=== PATIENT | male | born 1980 | race Caucasian/White ===

== ENCOUNTER 2025-03-18 13:14 | Emergency (ER) | payer MEDICAID ==
[~2025-03-18] VITALS: Ht 190.5 cm; Wt 180.0 kg
[~2025-03-18 13:14] MED LIST: ACET-75 PO; ASPI-1265 PO; ATOR40TA72 PO; CARV12.545 PO; CARV3.123 PO; CELE-127 PO; CYCL-1 PO; EMPA10TA PO; FERR-106 PO; FOLI1TAB27 PO; FURO40TA4 PO; IBUP-1986 PO; LOSA25TA41 PO; LOSA50TA64 PO; MULT-25 PO; NOR5T PO; NYSPWD TP; PRED10TA PO; SILD20TA42 PO; SPIR25TA5 PO; SPIR50TA5 PO; thiamine tablet PO
[2025-03-18 13:25] VITALS: TEMP 98.2
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
--- NOTE | 2025-03-18 13:59 | RADIOLOGY REPORT ---
EXAM: DI CHEST,SINGLE VIEW Indication: sob Technique: Single frontal view of the chest was obtained Comparison: CT CTA CHEST PE W/ IV CONTRAST on DOS: 12/06/24, DI CHEST,SINGLE VIEW on DOS: 12/04/24 FINDINGS: Lines and Tubes: None Lungs: Pulmonary vascular congestion. Pleura: No effusion. No pneumothorax. Cardiomediastinal contours: Cardiomegaly. Bones: No acute osseous abnormality. IMPRESSION: Cardiomegaly with pulmonary vascular congestion.
[2025-03-18 14:30] LABS: MEAN PLATELET VOLUME 8.6 FL (7.4-10.4); RED CELL DISTRIBUTION WIDTH 19.0 % (11.5-14.5)
[2025-03-18 14:39] LABS: CREATININE 0.94 MG/DL (0.60-1.10); TOTAL CARBON DIOXIDE 27.5 MMOL/L (24-32); eCRCL 119 ML/MIN; eGFR 87 ML/MIN
[2025-03-18 14:48] LABS: PLATELET ESTIMATE NORMAL
[2025-03-18] MEDS ORDERED: FURO40TA4 PO (15:19)
[2025-03-18] MEDS ORDERED: SPIR25TA5 PO (15:19)
[2025-03-18] MEDS ORDERED: ATOR40TA72 PO (15:19)
[2025-03-18] MEDS ORDERED: CEPH-585 PO (15:19)
[2025-03-18] MEDS ORDERED: CARV3.123 PO (15:19)
[2025-03-18] MEDS ORDERED: ASPI-1265 PO (15:19)
[2025-03-18] MEDS ORDERED: LOSA50TA64 PO (15:19)
[2025-03-18 16:04] VITALS: BP 192/124; PULSE 91; RESP 16; O2SAT 97
== END 2025-03-18 16:16 | disposition home or self-care (01) ==
LOC: ER 13:14
DX: S90.822A Blister (nonthermal), left foot, initial encounter (principal); T25.122A Burn of first degree of left foot, initial encounter; Z88.8 Allergy status to other drugs, medicaments and biological substances; X58.XXXA Exposure to other specified factors, initial encounter; Y93.89 Activity, other specified; Y92.89 Other specified places as the place of occurrence of the external cause; Y99.8 Other external cause status
CPT/HCPCS: 36415; 71045; 80048; 83605; 84145; 85008; 85025; 87040; 99284; A6446

== ENCOUNTER 2025-05-06 19:14 | Inpatient (IN) | payer MEDICAID ==
[~2025-05-06] VITALS: Ht 190.5 cm; Wt 130.5 kg
--- NOTE | 2025-05-06 19:28 | ELECTROCARDIOGRAPH REPORT ---
[facility] Test Date: 2025-05-06 Test Time: 19:25:09 Pat Name: GRACIELA KRAFT Department: EMERGENCY ROOM Room: [facility] Gender: M Research Instructor: MIGEL : 1980 Requested By: SAMMI SCHRADER Order Number: [id number] Reading MD: Dr. IGNACIA Hallman Measurements Intervals Lewis Rate: 116 P: 62 NE: 153 QRS: -139 QRSD: 132 T: 56 QT: 326 QTc: 453 Interpretive Statements Sinus tachycardia Right atrial enlargement Right bundle branch block Electronically Signed On 05-07-2025 16:53:[address] IGNACIA Hallman Please click the below link to view image of tracing.
[2025-05-06 20:09] LABS: MEAN PLATELET VOLUME 8.5 FL (7.4-10.4); RED CELL DISTRIBUTION WIDTH 17.1 % (11.5-14.5)
[2025-05-06 20:11] LABS: LEUKOCYTE ESTERASE ,URINE NEGATIVE (Neg); NITRITES, URINE NEGATIVE (Neg); OCCULT BLOOD,URINE NEGATIVE (Neg)
--- NOTE | 2025-05-06 20:16 | RADIOLOGY REPORT ---
EXAM: DI CHEST,SINGLE VIEW TECHNIQUE: Single frontal chest radiograph CLINICAL HISTORY: SEPSIS COMPARISON: DI CHEST,SINGLE VIEW on DOS: 03/18/25, DI CHEST,SINGLE VIEW on DOS: 12/04/24 FINDINGS/IMPRESSION: The lungs are clear. Unchanged enlarged cardiomediastinal silhouette. No definite pleural effusion or pneumothorax, though the left costophrenic angle is partially excluded from field of view. Unchanged osseous structures.
[2025-05-06] MEDS ORDERED: vancomycin inj 1,000 MG in normal saline 250ml IV soln 250 ML IV STA (20:18)
[2025-05-06] MEDS: normal saline 1000ML IV soln IVB ONE ×2 (20:20→20:55)
[2025-05-06 20:22] LABS: CREATININE 1.98 MG/DL (0.60-1.10); TOTAL CARBON DIOXIDE 26.5 MMOL/L (24-32); eCRCL 56 ML/MIN; eGFR 37 ML/MIN
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
[2025-05-06 20:29] LABS: UA COLLECTION TYPE URINAL
[2025-05-06 20:31] LABS: AMORPHOUS PHOSPHATES 1+; MUCUS STRANDS NONE SEEN /LPF (Neg); SQUAMOUS EPITHELIAL CELL,UR NONE SEEN /LPF (FEW)
[2025-05-06 20:46] LABS: EOSINOPHILS % (MANUAL) 1.0 % (0-6); LYMPHOCYTES % (MANUAL) 4.0 % (21-51); MONOCYTES % (MANUAL) 3.0 % (2-12); NEUTROPHILS % (MANUAL) 92.0 % (42-75); PLATELET ESTIMATE NORMAL
[2025-05-06] MEDS: vancomycin/NS 1 GM ADD-VANTAGE 250 ML IV STA (21:06)
[2025-05-06] MEDS ORDERED: potassium Cl 20 mEq SR tablet PO PRN ×2 (21:10)
[2025-05-06] MEDS ORDERED: magnesium sulf-water 4G/100mL 100 ML IV PRN (21:10)
[2025-05-06] MEDS ORDERED: HYDROcodone/acetaminophen 5mg/325mg tablet PO PRN (21:10)
[2025-05-06] MEDS ORDERED: ipratropium/albuterol 3ml nebule NEB PRN (21:10)
[2025-05-06] MEDS ORDERED: magnesium hydroxide 30ml (MOM) UD suspension PO PRN (21:10)
[2025-05-06] MEDS ORDERED: magnesium Cl slow-release 64mg tablet PO PRN (21:10)
[2025-05-06] MEDS ORDERED: magnesium sulf-water 2g/50mL 50 ML IV PRN (21:10)
[2025-05-06] MEDS ORDERED: potassium Cl 40MEQ/1/2NS 520ml 520 ML IV PRN (21:10)
[2025-05-06] MEDS ORDERED: albuterol 2.5 MG/3 ML nebule NEB PRN (21:10)
[2025-05-06] MEDS ORDERED: normal saline 1000ml 1,000 ML IV SCH (21:10)
[2025-05-06] MEDS ORDERED: iohexol 300mg/ml 100ml inj. ONE (21:19)
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
[2025-05-06 21:57] LABS: CHOL/HDL RATIO 2.2 (0.00-4.99); LDL CHOLESTEROL 68 MG/DL (50-100); PRO BRAIN NATRIURETIC PEPTIDE 29633 PG/ML (0-125)
[2025-05-06] MEDS: piperacillin/tazo 4.5gm/100ml 100 ML IV SCH (22:05)
[2025-05-06 22:06] LABS: ABG BASE EXCESS -3.5 mmol/L (-2.0-3.0); ABG HCO3 21.3 mmol/L (21.0-28.0); ABG OXYGEN SATURATION 91.4 % (94.0-98.0); ABG PCO2 (T) 42.5 mmHg (35.0-48.0); ABG PH (T) 7.330 (7.350-7.450); ABG PO2 (T) 75.6 mmHg (83.0-108.0); ALLEN'S TEST POSITIVE; FCOHb 1.1 % (0.5-1.5); FHHb 8.5 % (0.0-5.0); FIO2 44.0 mmHg/%; FLOW 6 L/min; FMetHb 0.2 % (0.0-1.5); FO2Hb 90.2 % (94.0-98.0); MODE NASAL CANNULA; PATIENT TEMPERATURE 39.6; TOTAL HEMOGLOBIN 15.8 G/dl (13.5-17.5)
[2025-05-06 22:14] LABS: APTT 30 SECONDS (22-32); INR 1.2 INR
[2025-05-06] MEDS: HYDROcodone/acetaminophen 10/325mg tab PO PRN (22:28)
[2025-05-06] MEDS: HEPARIN DRIP DVT/PE -**PHARMACIST TO DOSE IV ONE (22:40)
[2025-05-06 22:46] VITALS: PULSE 119; RESP 25; O2SAT 88
[2025-05-06] MEDS ORDERED: heparin 10,000 units/1 ML INJ IV PRN (22:50)
[2025-05-06] MEDS: heparin 10,000 units/1 ML INJ IV ONE (23:26)
[2025-05-06 23:29] LABS: MEAN PLATELET VOLUME 8.1 FL (7.4-10.4); RED CELL DISTRIBUTION WIDTH 17.6 % (11.5-14.5)
[2025-05-06 23:36] VITALS: PULSE 120; RESP 25; O2SAT 93
[2025-05-07] VITALS (28 sets, daily range): BP systolic 100–156; BP diastolic 54–100; PULSE 97–115; RESP 15–30; O2SAT 81–98
[2025-05-07] MEDS: heparin 25,000 UNIT/250ml bag 250 ML IV PRN (00:07)
[2025-05-07] MEDS: MESSAGE TO NURSING IV ONE (00:09)
[2025-05-07] MEDS: normal saline 1000ml 1,000 ML IV SCH (00:12)
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
[2025-05-07 00:22] LABS: INR 1.3 INR
--- NOTE | 2025-05-07 00:31 | RADIOLOGY REPORT ---
EXAM: CT CTA CHEST PE W/ IV CONTRAST History: Shortness of breath Comparison Study: DI CHEST,SINGLE VIEW on DOS: 05/06/25, DI CHEST,SINGLE VIEW on DOS: 03/18/25, CT CTA CHEST PE W/ IV CONTRAST on DOS: 12/06/24, DI CHEST,SINGLE VIEW on DOS: 12/04/24 TECHNIQUE: A digital sub plant manager image was obtained. During the uneventful, intravenous administration of contrast material, multislice data acquisition was obtained through the chest. 3-D postprocessing is performed by technologist including MIP imaging Radiation Dose : CTDI vol 24.9 mGy, DLP 1015.1 mGy*cm. Findings: Evaluation is degraded by respiratory motion. Lungs: There are mild dense and linear opacities with most pronounced within the lower lobes. Pleura: Unremarkable Heart/Great vessels: There is borderline cardiomegaly. There is no CT evidence of acute pulmonary embolism. Evaluation for subsegmental pulmonary emboli is limited. Mediastinum: Unremarkable. Soft tissues/Bones: Unremarkable Upper abdomen: Unremarkable. Impression: 1. No CT evidence of acute pulmonary embolism. Evaluation for subsegmental pulmonary emboli is limited. 2. Lower lobe opacities may reflect atelectasis, though infectious / inflammatory process cannot be entirely excluded in the appropriate clinical setting.
--- NOTE | 2025-05-07 00:35 | RADIOLOGY REPORT ---
Exam: CT CT LOWER EXTREMITY W/ IV CONTRAST History: infection Comparison Study: None TECHNIQUE: A digital sales review clerk image was obtained. During the uneventful, intravenous administration of contrast material, multislice data acquisition was obtained through the left lower extremity. The data set was subsequently reconstructed into multiplanar reformats. RADIATION DOSE: CTDI vol 7.6 mGy. DLP 322.3 mGy.cm Findings: There is no acute fracture. No dislocation. There is diffuse subcutaneous swelling and stranding. No drainable fluid collection is seen. There is no soft tissue gas. There is no osseous erosion. Visualized portions of the right lower extremity demonstrate subcutaneous stranding, incompletely assessed. Impression: 1. Diffuse subcutaneous stranding and swelling, most likely referable to an infectious/inflammatory process in the appropriate clinical setting.
[2025-05-07] MEDS: mag hydrox/Alum hydrox/simeth 30ml oral suspension PO PRN (01:30)
[2025-05-07] MEDS: HYDROmorphone/PF 0.2 MG/ML SYRINGE IV PRN (01:31)
[2025-05-07 07:53] LABS: MEAN PLATELET VOLUME 8.6 FL (7.4-10.4); RED CELL DISTRIBUTION WIDTH 17.8 % (11.5-14.5)
[2025-05-07] MEDS ORDERED: heparin, porcine 5000 units/ml vial SQ SCH (08:00)
[2025-05-07] MEDS: docusate sod 100mg capsule PO SCH (08:00)
[2025-05-07] MEDS: K and/or MAG REPLACEMENT MC SCH (08:00)
[2025-05-07 08:17] LABS: BANDS% (MANUAL) 5.0 % (0-10); LYMPHOCYTES % (MANUAL) 1.0 % (21-51); METAMYLEOCYTES% (MANUAL) 1.0 % (0-0); MONOCYTES % (MANUAL) 4.0 % (2-12); NEUTROPHILS % (MANUAL) 89.0 % (42-75); PLATELET ESTIMATE NORMAL
[2025-05-07 08:30] LABS: CHOL/HDL RATIO 1.6 (0.00-4.99); CREATININE 2.20 MG/DL (0.60-1.10); LDL CHOLESTEROL 31 MG/DL (50-100); TOTAL CARBON DIOXIDE 28.1 MMOL/L (24-32); eCRCL 51 ML/MIN; eGFR 33 ML/MIN
--- NOTE | 2025-05-07 10:05 | RADIOLOGY REPORT ---
CLINICAL HISTORY: KEIRA TECHNIQUE: Complete ultrasound exam of the kidneys and bladder was performed. COMPARISON: None FINDINGS: The right kidney has normal echogenicity and measures 11.1 cm. There is no focal parenchymal abnormality or evidence for stone. There is no hydronephrosis. The left kidney has normal echogenicity and measures 11.8 cm. There is no focal parenchymal abnormality or evidence for stone. There is no hydronephrosis. The bladder is not seen, likely decompressed. IMPRESSION: NO SIGNIFICANT SONOGRAPHIC ABNORMALITY OF THE KIDNEYS.
--- NOTE | 2025-05-07 10:26 | VASCULAR REPORT ---
[facility] Vascular Department [facility] [address] [place] [address] [email or web address] LAC HECTOR CAM Name : GRACIELA KRAFT Date : 05/07/2025 Accession# : [id number] Birthdate : 1980 Sex : M Layer Off : Kiki Tang RDMS/RVT Age : [address]Y [address] : BRANDON ESPARZA, Preliminary Report The above named patient was referred for a NON-INVASIVE LOWER EXTREMITY VENOUS EXAMINATION. The evaluation includes grayscale imaging, color flow Doppler and spectral analysis of the major deep and superficial lower extremity veins. Left Lower Extremity Venous Study for DVT Patient IN-PATIENT InaRSition's Left leg swelling Vein Imaging (Right) CFV (R): Compressible, Spontaneous, Respirophasic, Augmentation Reflux: ms Vein Imaging (Left) CFV (L): Compressible, Spontaneous, Respirophasic, Augmentation Reflux: ms SFJ (L): Compressible, Spontaneous, Respirophasic, Augmentation Reflux: ms FEM (L): Compressible, Spontaneous, Respirophasic, Augmentation Reflux: ms POP (L): Compressible, Spontaneous, Respirophasic, Augmentation Reflux: ms DFV (L): Compressible, Spontaneous, Respirophasic, Augmentation Reflux: ms PTV (L): Compressible, Spontaneous, Respirophasic, Augmentation Reflux: ms GSV (L): Compressible, Spontaneous, Respirophasic, Augmentation Reflux: ms Peroneals (L): Compressible, Spontaneous, Respirophasic, Augmentation Reflux: ms Impression: No sonographic evidence of deep vein thrombosis to left lower extremity. Normal compressible veins with respirophasic flow and good augmentation throughout left leg. Contralateral Common Femoral Vein shows respirophasic flow and good augmentation. Left groin lymph nodes visualized, largest measures 4.7cm x 1.5cm in transverse.
--- NOTE | 2025-05-07 10:37 | VASCULAR REPORT ---
BILATERAL Lower Extremity Arterial Duplex Date: 05/07/2025 07:52 AM Clinical History: left wound Comparison: None Inanations Left foot wound, leg pain VELOCITY AND DOPPLER WAVEFORM ANALYSIS RIGHT cm/se Waveform Severity LEFT cm/se Waveform Severity C c dCFA 84.6 Multiphasic dCFA 97.1 Multiphasic Prof Fem 40.8 Multiphasic Prof Fem 55.5 Multiphasic Art. Art Fem Art 70.4 Multiphasic Fem Art 89.9 Multiphasic Prox. Prox. Fem Art 57.9 Multiphasic Fem Art 64.9 Multiphasic Mid Mid. Fem Art 70.0 Multiphasic Fem Art 62. Multiphasic Dist Dist. Pop Art(AK) 40.7 Multiphasic Pop Art(AK) 63.4 Multiphasic Pop Art(BK) 38.7 Multiphasic Pop Art(BK) 50.3 Multiphasic SHOTGUN SHELL ASSEMBLY MACHINE OPERATOR Dist. 44.1 Multiphasic SHOTGUN SHELL ASSEMBLY MACHINE OPERATOR Dist. 77.3 Multiphasic DPA 34.3 Multiphasic DPA 39.3 Multiphasic CONCLUSION Imaging reveals patent arteries bilaterally. No evidence of significant stenosis and/or occlusion bilaterally. Multiphasic flow at all levels bilaterally.
--- NOTE | 2025-05-07 11:12 | ELECTROCARDIOGRAPH REPORT ---
[facility] Date: 2025-05-07 Test Time: 11:10:15 Pat Name: GRACIELA KRAFT Department: [facility] 2S Patient ID: [facility]-[id number] Room: 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 IGNACIA Hallman Measurements Intervals [place] Rate: 103 P: 57 DE: 164 QRS: 67 QRSD: 140 T: 28 QT: 356 QTc: 466 Interpretive Statements Sinus tachycardia Right bundle branch block Electronically Signed On 05-07-2025 16:50:[address] IGNACIA Hallman Please click the below link to view image of tracing.
--- NOTE | 2025-05-07 14:03 | PROGRESS NOTE ---
Progress Note Ortho Ortho Post Op Day #: Other Follow Up ROS ROS No new complaints Exam Exam: Alert and Oreinted x4 Exam Comments There was no change in the appearance of the foot. He has warmth of the leg below the knee and firm swelling from the knee down Problem/Assessment/Plan Problems/Diagnosis: (1) Wound cellulitis Additional Plan Continue observation and antibiotics Results/Orders Result Diagram: 05/07/25 0725 05/07/25 0725 CHRISTOPHER WILKINS Jr., MD May 07, 2025 14:03
[2025-05-07] MEDS: pantoprazole 40mg Tablet.DR PO ONE (14:05)
[2025-05-07] MEDS: HYDROmorphone inj. 0.5 MG/0.5 ML DISP.SYRIN IV PRN (14:06)
--- NOTE | 2025-05-07 17:06 | CARDIOLOGY REPORT ---
APPROVED REPORT EXAM: Comprehensive 2D, Doppler, and color-flow Echocardiogram. 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 3.04 cm IVC 22.07 mm FS (%) 28.0 % SV 54.4 ml CO 5.6 L/min M-Mode Dimensions Left Atrium(MM) 4.11 (2.5-4.0cm) Aortic Root 3.39 (2.2-3.7cm) Aortic Cusp Exc 1.95 (1.5-2.0cm) MV EPSS 0.3 (<0.5cm) Aortic Valve AoV Peak [place]. 185.8 cm/s AoV VTI 25.3 cm AO Peak GR. 13.8 mmHg AO Mean GR. 9 mmHg LVOT VTI 16.85 cm LVOT Peak [place]. 109.6 cm/s OLIVA(VTI)/BSA 2.39 cm2/m2 OLIVA (VTI) 2.39 cm2 AV DI 0.66 % Mitral Valve MV E Velocity 102.0 cm/s MV Peak Gr. 3 mmHg MV DECEL TIME 172 ms MV A Velocity 95.0 cm/s MV PHT 80 ms E/A Ratio 1.1 MVA (PHT) 2.75 cm2 MV VMax 86.2 cm/s TDI Lateral E' P. V 7.41 cm/s E/Lateral E' 13.8 Tricuspid Valve TR P. Velocity 253 cm/s RAP ESTIMATE 10 mmHg TR Peak Gr. 26 mmHg RVSP 36 mmHg LEFT VENTRICLE Normal LV size and function. Mild concentric hypertrophy. Overall LVEF is 55%. RIGHT VENTRICLE Right ventricle is severely dilated with mildly decreased contractility. ATRIA Left atrium is mildly dilated. AORTIC VALVE Trileaflet AV appears mildly sclerotic without stenosis. No insufficiency by color and spectral flow Doppler. MITRAL VALVE Mitral valve leaflets are mildly thickened with mild annular calcification. No stenosis. Trace regurgitation. TRICUSPID VALVE Tricuspid valve is grossly normal in structure. PULMONIC VALVE Pulmonic valve is grossly normal in structure with physiologic insufficiency. GREAT VESSELS Aortic root is mildly dilated (3.8 cm). The ascending aorta is normal in size. IVC is dilated and collapses less than 50% with inspiration. PERICARDIUM Normal pericardium. No effusion. Other Information Study Quality: Fair due to body habitus Conclusion Overall LVEF is 55%. Right ventricle is severely dilated with mildly decreased contractility. Trileaflet AV appears mildly sclerotic without stenosis. No insufficiency by color and spectral flow Doppler. Mitral valve leaflets are mildly thickened with mild annular calcification. No stenosis. Trace regurgitation. Tricuspid valve is grossly normal in structure. Normal pericardium. No effusion.
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
[2025-05-07] MEDS: Ensure Enlive - 237ML PO SCH (17:55)
[2025-05-07] MEDS: piperacillin/tazo 4.5gm/100ml 100 ML IV SCH (17:58)
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
[2025-05-07] MEDS: ALPRAZolam 0.25mg tablet PO PRN (19:57)
[2025-05-08] VITALS (32 sets, daily range): BP systolic 98–155; BP diastolic 32–114; PULSE 52–123; RESP 11–39; O2SAT 86–98
[2025-05-08] MEDS: furosemide 10 MG/1 ML 10ml inj IV ONE (00:29)
[2025-05-08] MEDS: dexmedetomidin/NS 400mcg/100ml 100 ML IV PRN (00:29)
--- NOTE | 2025-05-08 01:36 | PROGRESS NOTE ---
Progress Note Dictate Providers to CC ~ Antibiotic Ordered?: Yes Objective Vitals Vital Signs Date Time Temp Pulse Resp B/P (MAP) Pulse Ox O2 Delivery O2 Flow Rate FiO2 05/08/25 01:00 98.2 115 29 124/71 (88) 94 High Flow Nasal Cannula 30.0 100 Lab Results: 05/07/25 0725 05/07/25 0725 Coagulation Studies Laboratory Tests Test 05/06/25 19:39 05/06/25 23:16 05/07/25 07:25 Activated Partial Thromboplast Time 30 SECONDS (22-32) Prothrombin Time 12.4 SECONDS (9.0-12.0) H INR International Normalized Ratio 1.3 INR D-Dimer 1.32 MG/L FEU (0-0.50) H D-Dimer Comment APTT (Heparin Protocol) 50 SECONDS (45-75) Coagulation Comments Problem\Assessment\Plan Additional Plan Patient seen and evaluated using HIPPA compliant AV device Rounded with the RN and credit charge authorizer with the the RT Admitted for severe sepsis with foot infection/abscess Hx of ALFREDA, preserved EF heart failure Now in respiratory distress not tolerating BIPAP CTA no PE On HFNC despnic Morbidly obese Switch back to BIPAP, Low dose precedex to help tolerate BIPAP 1 time lasix re-asses in am for additional dose Bronchodialtor BS Abx Continue rest of care If get worse will need mech ventilation CCT 60mins MD BEN Wilson,DAISY Lacy MD May 08, 2025 01:36
[2025-05-08 04:40] LABS: MEAN PLATELET VOLUME 8.5 FL (7.4-10.4); RED CELL DISTRIBUTION WIDTH 17.9 % (11.5-14.5)
[2025-05-08 05:07] LABS: BANDS% (MANUAL) 2.0 % (0-10); LARGE PLATELETS FEW; LYMPHOCYTES % (MANUAL) 3.0 % (21-51); MONOCYTES % (MANUAL) 2.0 % (2-12); NEUTROPHILS % (MANUAL) 93.0 % (42-75); PLATELET ESTIMATE NORMAL
--- NOTE | 2025-05-08 06:21 | PROGRESS NOTE ---
Progress Note Dictate Providers to CC ~ Progress Note: Still on HFNC O2. Refuses BiPAP Central Line/PICC still needed: N\A Andersen Indications Met/Not Met: F/C Indications Not Met Antibiotic Ordered?: Yes Subjective Subjective Mild distress Objective Vitals Vital Signs Date Time Temp Pulse Resp B/P (MAP) Pulse Ox O2 Delivery O2 Flow Rate FiO2 05/08/25 06:00 98.4 94 39 98/32 (54) 88 High Flow Nasal Cannula 30.0 100 Lab Results: 05/08/25 0347 05/07/25 0725 Objective Heart: S1-2 reg Lungs: Coarse BS at bases Abd: Soft, BS (+) Ext: edema (+) Neuro: awake Coagulation Studies Laboratory Tests Test 05/06/25 19:39 05/06/25 23:16 05/07/25 07:25 Activated Partial Thromboplast Time 30 SECONDS (22-32) Prothrombin Time 12.4 SECONDS (9.0-12.0) H INR International Normalized Ratio 1.3 INR D-Dimer 1.32 MG/L FEU (0-0.50) H D-Dimer Comment APTT (Heparin Protocol) 50 SECONDS (45-75) Coagulation Comments Problem\Assessment\Plan Additional Plan 1-Severe Sepsis due to LE Cellulitis -Continue abx 2-Acute Hypoxemic Resp Failure -Titrate O2 for SpO2>92% -BiPAP qhs/prn 3-Severe Dilated RV -Suspect PAH due to untreated ALFREDA/OHS -Add Lasix 4-Agitation -Add [place] Vásquez CC time 35min Sepsis Screening Reassessment Date: May 08, 2025 TEDDY VÁSQUEZ MD May 08, 2025 06:21
[2025-05-08 08:32] LABS: CREATININE 2.31 MG/DL (0.60-1.10); PHOSPHORUS 5.0 MG/DL (2.3-4.5); TOTAL CARBON DIOXIDE 28.9 MMOL/L (24-32); eCRCL 48 ML/MIN; eGFR 31 ML/MIN
[2025-05-08 09:46] LABS: ABG BASE EXCESS -1.7 mmol/L (-2.0-3.0); ABG HCO3 23.8 mmol/L (21.0-28.0); ABG OXYGEN SATURATION 98.6 % (94.0-98.0); ABG PCO2 (T) 42.8 mmHg (35.0-48.0); ABG PH (T) 7.362 (7.350-7.450); ABG PO2 (T) 112.9 mmHg (83.0-108.0); ALLEN'S TEST POSITIVE; FCOHb 0.8 % (0.5-1.5); FHHb 1.4 % (0.0-5.0); FIO2 50.0 mmHg/%; FMetHb 0.3 % (0.0-1.5); FO2Hb 97.5 % (94.0-98.0); MODE CPAP; PATIENT TEMPERATURE 36.9; PEEP 14 cm H2O; TOTAL HEMOGLOBIN 13.6 G/dl (13.5-17.5)
[2025-05-08] MEDS: cefepime 1GM in D5W 50mL 50 ML IV SCH (10:10)
[2025-05-08] MEDS: pantoprazole 40mg Tablet.DR PO SCH (12:27)
[2025-05-08] MEDS: enoxaparin 40mg/0.4ml syringe SQ SCH (12:28)
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
[2025-05-09] VITALS (28 sets, daily range): BP systolic 70–152; BP diastolic 35–114; PULSE 69–118; RESP 14–26; O2SAT 90–99
--- NOTE | 2025-05-09 06:14 | PROGRESS NOTE ---
Progress Note Dictate Providers to CC ~ Progress Note: No new acute issues overnight. On BiPAP last night Central Line/PICC still needed: N\A Andersen Indications Met/Not Met: F/C Indications Not Met Antibiotic Ordered?: Yes Subjective Subjective Comfortable Objective Vitals Vital Signs Date Time Temp Pulse Resp B/P (MAP) Pulse Ox O2 Delivery O2 Flow Rate FiO2 05/09/25 06:00 104 18 150/114 (126) 95 Bi-pap/CPAP 20.0 85 05/09/25 05:00 97.2 Lab Results: 05/08/25 0347 05/08/25 0703 Objective Heart: S1-2 reg Lungs: Coarse BS at bases Abd: Soft, BS (+) Ext: edema (+) Neuro: awake Coagulation Studies Laboratory Tests Test 05/06/25 19:39 05/06/25 23:16 05/07/25 07:25 Activated Partial Thromboplast Time 30 SECONDS (22-32) Prothrombin Time 12.4 SECONDS (9.0-12.0) H INR International Normalized Ratio 1.3 INR D-Dimer 1.32 MG/L FEU (0-0.50) H D-Dimer Comment APTT (Heparin Protocol) 50 SECONDS (45-75) Coagulation Comments Problem\Assessment\Plan Additional Plan 1-Severe Sepsis due to LE Cellulitis -Continue broad spectrum abx 2-Acute Hypoxemic Resp Failure -Titrate O2 for SpO2>92% -BiPAP qhs/prn 3-Severe Dilated RV -Suspect PAH due to untreated ALFREDA/OHS -Continue Lasix 4-Agitation -Continue Seroquel 5-HTN -Increase anti-HTN 6-KEIRA/CKD -F/U BMP Anticipate transfer soon A Thalia CC time 35min Sepsis Screening Reassessment Date: May 09, 2025 TEDDY SINGH MD May 09, 2025 06:14
[2025-05-09 06:26] LABS: MEAN PLATELET VOLUME 8.5 FL (7.4-10.4); RED CELL DISTRIBUTION WIDTH 18.0 % (11.5-14.5)
[2025-05-09 07:31] LABS: BANDS% (MANUAL) 3.0 % (0-10); LYMPHOCYTES % (MANUAL) 4.0 % (21-51); MONOCYTES % (MANUAL) 7.0 % (2-12); NEUTROPHILS % (MANUAL) 86.0 % (42-75); NUCLEATED RED BLOOD CELLS 1 /100WBC (0-0); PLATELET ESTIMATE NORMAL
[2025-05-09 07:33] LABS: CREATININE 1.83 MG/DL (0.60-1.10); TOTAL CARBON DIOXIDE 27.2 MMOL/L (24-32); eCRCL 61 ML/MIN; eGFR 40 ML/MIN
[2025-05-09] MEDS ORDERED: SODIUM ZIRCONIUM CYCLOSILICATE 10 GM POWD.PACK PO SCH (08:00)
[2025-05-09 08:59] LABS: PHOSPHORUS 6.7 MG/DL (2.3-4.5)
[2025-05-09 09:33] LABS: ABG BASE EXCESS -1.5 mmol/L (-2.0-3.0); ABG HCO3 29.2 mmol/L (21.0-28.0); ABG OXYGEN SATURATION 96.5 % (94.0-98.0); ABG PCO2 (T) 77.7 mmHg (35.0-48.0); ABG PH (T) 7.186 (7.350-7.450); ABG PO2 (T) 85.7 mmHg (83.0-108.0); ALLEN'S TEST POSITIVE; FCOHb 0.9 % (0.5-1.5); FHHb 3.5 % (0.0-5.0); FIO2 85.0 mmHg/%; FMetHb 0.3 % (0.0-1.5); FO2Hb 95.3 % (94.0-98.0); MODE MASK - BIPAP; PATIENT TEMPERATURE 36.0; RESPIRATORY RATE 12 b/min; TOTAL HEMOGLOBIN 13.9 G/dl (13.5-17.5)
[2025-05-09] MEDS: SODIUM ZIRCONIUM CYCLOSILICATE 10 GM POWD.PACK PO SCH (11:00)
[2025-05-09 11:53] LABS: ABG BASE EXCESS -1.2 mmol/L (-2.0-3.0); ABG HCO3 24.8 mmol/L (21.0-28.0); ABG OXYGEN SATURATION 99.8 % (94.0-98.0); ABG PCO2 (T) 46.4 mmHg (35.0-48.0); ABG PH (T) 7.346 (7.350-7.450); ABG PO2 (T) 207.1 mmHg (83.0-108.0); ALLEN'S TEST POSITIVE; FCOHb 0.8 % (0.5-1.5); FHHb 0.2 % (0.0-5.0); FIO2 85.0 mmHg/%; FMetHb 0.3 % (0.0-1.5); FO2Hb 98.7 % (94.0-98.0); MODE MASK - BIPAP; PATIENT TEMPERATURE 37.0; RESPIRATORY RATE 20 b/min; TOTAL HEMOGLOBIN 13.7 G/dl (13.5-17.5)
[2025-05-09] MEDS ORDERED: CARV-50 PO (14:38)
[2025-05-09] MEDS ORDERED: ASPI-920 PO (14:38)
[2025-05-09] MEDS ORDERED: SPIR25TA PO (14:38)
[2025-05-09] MEDS ORDERED: AMLO5TAB69 PO (14:38)
[2025-05-09] MEDS ORDERED: FURO20TA4 PO (14:38)
[2025-05-09] MEDS ORDERED: ATOR40TA71 PO (14:38)
[2025-05-09] MEDS ORDERED: EMPA10TA PO (14:39)
[2025-05-09] MEDS: acetaminophen 1,000mg/100ml IV 100 ML IV PRN (17:32)
[2025-05-09 19:06] LABS: ABG BASE EXCESS -3.3 mmol/L (-2.0-3.0); ABG HCO3 19.9 mmol/L (21.0-28.0); ABG OXYGEN SATURATION 97.9 % (94.0-98.0); ABG PCO2 (T) 32.5 mmHg (35.0-48.0); ABG PH (T) 7.410 (7.350-7.450); ABG PO2 (T) 106.6 mmHg (83.0-108.0); ALLEN'S TEST Yes; FCOHb 0.8 % (0.5-1.5); FHHb 2.1 % (0.0-5.0); FIO2 70.0 mmHg/%; FMetHb 0.3 % (0.0-1.5); FO2Hb 96.8 % (94.0-98.0); MODE MASK - BIPAP; PATIENT TEMPERATURE 38.1; TOTAL HEMOGLOBIN 14.4 G/dl (13.5-17.5)
[2025-05-09] MEDS: ringers solution, lacted 1,000 ML IV ONE ×2 (19:22→21:07)
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
[2025-05-09] MEDS ORDERED: acetaminophen 1,000mg/100ml IV 100 ML IV PRN (20:00)
[2025-05-09] MEDS: NORepinephrine 8mg/ 250ml NS 250 ML IV PRN (20:07)
[2025-05-09 20:45] LABS: CREATININE 2.98 MG/DL (0.60-1.10); PHOSPHORUS 7.3 MG/DL (2.3-4.5); TOTAL CARBON DIOXIDE 22.3 MMOL/L (24-32); eCRCL 37 ML/MIN; eGFR 23 ML/MIN
--- NOTE | 2025-05-09 20:57 | PROGRESS NOTE ---
Progress Note Dictate Providers to CC ~ Antibiotic Ordered?: Yes Objective Vitals Vital Signs Date Time Temp Pulse Resp B/P (MAP) Pulse Ox O2 Delivery O2 Flow Rate FiO2 05/09/25 20:07 81/52 05/09/25 20:00 80 05/09/25 20:00 99.7 20 98 Bi-pap/CPAP 20.0 50 Lab Results: 05/09/25 0519 05/09/251954 Coagulation Studies Laboratory Tests Test 05/06/25 19:39 05/06/25 23:16 05/07/25 07:25 Activated Partial Thromboplast Time 30 SECONDS (22-32) Prothrombin Time 12.4 SECONDS (9.0-12.0) H INR International Normalized Ratio 1.3 INR D-Dimer 1.32 MG/L FEU (0-0.50) H D-Dimer Comment APTT (Heparin Protocol) 50 SECONDS (45-75) Coagulation Comments Problem\Assessment\Plan Additional Plan Patient seen and evaluated using HIPPA compliant AV device Rounded with the RN and primer charger with the the RT Admitted for severe sepsis with foot infection/abscess Hx of ALFREDA, preserved EF heart failure Now in respiratory distress on BIPAP HyperK, Worsening acidosis Shock KEIRA BIPAP, Fluid resuscitation Levophed HyperK coctail(cant tolerate oral intake), Nephrology consult, trend lactic acid and repeat BMP Bronchodialtor BS Abx Continue rest of care If get worse will need mech ventilation CCT 60mins MD BEN Wilson,DAISY Lacy MD May 09, 2025 20:57
[2025-05-09] MEDS: CALCIUM GLUC 1gm/50ml NACL,iso 50 ML IV ONE (21:08)
[2025-05-09] MEDS: dextrose 50%-water 50ml dispensing syringe IV ONE (21:08)
[2025-05-09] MEDS: linezolid 600mg/300ml PREMIX 300 ML IV SCH (21:08)
[2025-05-09] MEDS: insulin regular, human 10 units/0.1 ml syringe IV ONE (21:12)
[2025-05-09] MEDS: albuterol 2.5 MG/3 ML nebule CONTNEB PRN (21:15)
[2025-05-09] MEDS ORDERED: albumin (human) 25% 100ml IV 100 ML IV PRN (21:30)
[2025-05-09] MEDS: heparin 1,000 units/ml 10ml inj IV ONE (21:30)
[2025-05-09] MEDS: heparin 1,000unit/ml 10ml vial 10 ML IV ONE (21:30)
[2025-05-09] MEDS: mannitol 12.5gm/50mL VIAL IV ONE (21:30)
[2025-05-09] MEDS: heparin 1,000 units/ml 10ml inj HE ONE ×2 (21:35)
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
[2025-05-09] MEDS ORDERED: calcium chloride inj. 1,000 MG in normal saline 100ml IV soln 100 ML IV PRN (21:45)
[2025-05-09] MEDS ORDERED: magnesium sulf-water 4G/100mL 100 ML IV PRN (21:45)
[2025-05-09] MEDS ORDERED: potassium Cl 40MEQ/270ML bag 270 ML IV PRN (21:45)
[2025-05-09] MEDS ORDERED: sodium phosphate inj. 30 MMOL in dextrose 5%-water 250 ML IV PRN (21:45)
[2025-05-09 23:21] LABS: CREATININE 3.06 MG/DL (0.60-1.10); TOTAL CARBON DIOXIDE 25.4 MMOL/L (24-32); eCRCL 36 ML/MIN; eGFR 22 ML/MIN
[2025-05-10] VITALS (34 sets, daily range): BP systolic 79–133; BP diastolic 44–93; PULSE 62–94; RESP 18–28; TEMP 101; O2SAT 78–99
[2025-05-10 02:50] LABS: MEAN PLATELET VOLUME 9.0 FL (7.4-10.4); RED CELL DISTRIBUTION WIDTH 17.9 % (11.5-14.5)
[2025-05-10 03:16] LABS: BANDS% (MANUAL) 2.0 % (0-10); LYMPHOCYTES % (MANUAL) 10.0 % (21-51); MONOCYTES % (MANUAL) 6.0 % (2-12); NEUTROPHILS % (MANUAL) 82.0 % (42-75); NUCLEATED RED BLOOD CELLS 3 /100WBC (0-0); PLATELET ESTIMATE NORMAL
[2025-05-10 03:24] LABS: CALCIUM CVVH 8.7 MG/DL (8.5-10.1); CREATININE 2.95 MG/DL (0.60-1.10); PHOSPHORUS 6.7 MG/DL (2.3-4.5); TOTAL CARBON DIOXIDE 25.0 MMOL/L (24-32); eCRCL 38 ML/MIN; eGFR 23 ML/MIN
[2025-05-10] MEDS: albuterol 2.5 MG/3 ML nebule NEB ONE (03:50)
[2025-05-10] MEDS: CALCIUM GLUC 1gm/50ml NACL,iso 50 ML IV ONE (03:54)
[2025-05-10] MEDS: dextrose 50%-water 50ml dispensing syringe IV ONE (03:54)
[2025-05-10] MEDS: insulin regular, human U-100 10ml vial - multi-dose IV ONE (03:55)
--- NOTE | 2025-05-10 07:41 | PROGRESS NOTE ---
Progress Note Dictate Providers to CC ~ Central Line/PICC still needed: Yes Central Line/PICC Necessity: Req HD/Plasmapheresis Andersen Indications Met/Not Met: F/C Indications Met Antibiotic Ordered?: Yes Subjective Subjective left leg looks very erythematous. per RN, the markings indicate that it is expanding. needs ID consult, CT vs MRi fo the leg, possible intubation if icu team decides, and a femoral vs IJ devan to get the CVVh started. discussed with resident. hopefully this is not nec fasc. his LFTs are on the rise. He is hypotensive. CRRT to start once the line is placed. Objective Vitals Vital Signs Date Time Temp Pulse Resp B/P (MAP) Pulse Ox O2 Delivery O2 Flow Rate FiO2 05/10/25 18:13 24 05/10/25 18:00 99.9 73 103/63 (76) 98 Mechanical Ventilator 90 05/10/25 11:00 20.0 Lab Results: 05/10/25 1800 05/10/25 1700 Objective Vital Signs: As above General: Normal body habitus, no acute distress. Skin: No rashes, lumps, ulcers, blisters, purpura or petechiae HEENT: Anicteric sclera, CYNDI Neck: Supple and nontender without enlargement of the thyroid, or lymphadenopathy. Chest: Normal size and shape, no tenderness, CTA bilaterally Heart: Regular. No jugular venous distention, S1 and S2 heard , no gallop Abdomen: Soft and non tender no organomegaly,BS+ Extremities: left leg very erythematous and warm. Neuro: Nonfocal. Coagulation Studies Laboratory Tests Test 05/06/25 19:39 05/06/25 23:16 05/07/25 07:25 Activated Partial Thromboplast Time 30 SECONDS (22-32) Prothrombin Time 12.4 SECONDS (9.0-12.0) H INR International Normalized Ratio 1.3 INR D-Dimer 1.32 MG/L FEU (0-0.50) H D-Dimer Comment APTT (Heparin Protocol) 50 SECONDS (45-75) Coagulation Comments Advance Care Planning Advanced Care plannin - 30 Minutes Problem\Assessment\Plan Problems/Diagnosis: (1) Hyperkalemia Assessment & Plan: secondary to ongoing azotemia + use of spironolactone until admission + tissue ischemia. lactate is going up and LFTS are going up. Make sure there is no necrotizing fasciitis. iCu folowing. requesting resident vs er physician to place Devan in groin. will arrange for HD tonight to get hte potasium under control. continued tissue ischemia can stil make it go up despite dialysis. if he gets floridly septic, he is going to end up needing /cVVH. I have tried to call the mother multiple times without success. I am unable to leave a message. i have to do this as a life saving procedure tonight while continuing to reach her in am. He is critically ill and is obtunded. he is on pressors now. will get him safely started on CVVH with 2K bath. (2) Acute kidney injury Assessment & Plan: as above. contrast exposure, ischemic ATN in progress with hepatic failure most likely from sepsis. keep a close watch for any necrotizing fasciitis. (3) Wound cellulitis Assessment & Plan: closer monitoring of the wound and rule out any nec fasc. critically ill. TAYLER REID MD May 10, 2025 07:41
[2025-05-10 07:46] LABS: MEAN PLATELET VOLUME 8.9 FL (7.4-10.4); RED CELL DISTRIBUTION WIDTH 18.2 % (11.5-14.5)
[2025-05-10] MEDS ORDERED: rocuronium 10mg/ml inj IV ONE (08:00)
[2025-05-10] MEDS ORDERED: sod chloride 0.9% 10ml flush syringe IV ONE (08:00)
[2025-05-10] MEDS ORDERED: etomidate 2mg/ml inj. ONE (08:00)
[2025-05-10 08:18] LABS: CREATININE 2.96 MG/DL (0.60-1.10); PHOSPHORUS 5.7 MG/DL (2.3-4.5); TOTAL CARBON DIOXIDE 22.7 MMOL/L (24-32); eCRCL 38 ML/MIN; eGFR 23 ML/MIN
[2025-05-10 08:41] LABS: BANDS% (MANUAL) 1.0 % (0-10); LYMPHOCYTES % (MANUAL) 4.0 % (21-51); METAMYLEOCYTES% (MANUAL) 2.0 % (0-0); MONOCYTES % (MANUAL) 11.0 % (2-12); NEUTROPHILS % (MANUAL) 82.0 % (42-75); NUCLEATED RED BLOOD CELLS 10 /100WBC (0-0)
[2025-05-10 08:44] LABS: PLATELET ESTIMATE NORMAL
--- NOTE | 2025-05-10 09:10 | RADIOLOGY REPORT ---
CHEST RADIOGRAPH Indication: respiratory distress Technique: Single frontal view of the chest was obtained Comparison: DI CHEST,SINGLE VIEW on DOS: 05/06/25, DI CHEST,SINGLE VIEW on DOS: 03/18/25, DI CHEST,SINGLE VIEW on DOS: 12/04/24 FINDINGS/IMPRESSION: Moderate pulmonary edema. Left lower lobe / retrocardiac opacity not excluded. Bibasilar subsegmental atelectasis. Moderate cardiomegaly. No pneumothorax.
[2025-05-10] MEDS: FENTANYL-0.9 % NACL/PF 100 ML IV SCH (10:40)
[2025-05-10] MEDS: midazolam 1 mg/ML 2ml injection ONE (11:26)
[2025-05-10] MEDS: fentaNYL/PF 50MCG/1 ML 2ML syringe ONE (11:26)
[2025-05-10] MEDS: midazolam 1 mg/ML 2ml injection IV ONE (11:40)
[2025-05-10] MEDS: fentaNYL/PF 50MCG/1 ML 2ML syringe IV ONE (11:43)
--- NOTE | 2025-05-10 12:12 | RADIOLOGY REPORT ---
CHEST RADIOGRAPH Indication: s/p intubation, hypoxia Technique: Single frontal view of the chest was obtained COMPARISON: DI CHEST,SINGLE VIEW on DOS: 05/10/25, DI CHEST,SINGLE VIEW on DOS: 05/06/25, DI CHEST,SINGLE VIEW on DOS: 03/18/25, DI CHEST,SINGLE VIEW on DOS: 12/04/24 FINDINGS: Lines and Tubes: Endotracheal tube in satisfactory position. Lungs: Increased interstitial prominence. This may represent pulmonary vascular congestion and/or viral pneumonia. Pleura: No effusion. No pneumothorax. Cardiomediastinal contours: Cardiomegaly. Bones: Unremarkable IMPRESSION: Endotracheal tube in satisfactory position. Increased interstitial prominence. This may represent pulmonary vascular congestion and/or viral pneumonia.
[2025-05-10 12:15] LABS: ABG BASE EXCESS -5.8 mmol/L (-2.0-3.0); ABG HCO3 22.7 mmol/L (21.0-28.0); ABG OXYGEN SATURATION 88.8 % (94.0-98.0); ABG PCO2 (T) 59.1 mmHg (35.0-48.0); ABG PH (T) 7.208 (7.350-7.450); ABG PO2 (T) 74.6 mmHg (83.0-108.0); ALLEN'S TEST POSITIVE; FCOHb 0.6 % (0.5-1.5); FHHb 11.1 % (0.0-5.0); FIO2 100.0 mmHg/%; FMetHb 0.1 % (0.0-1.5); FO2Hb 88.2 % (94.0-98.0); MODE VENT - PRVC; PATIENT TEMPERATURE 38.2; PEEP 18 cm H2O; RESPIRATORY RATE 18 b/min; TIDAL VOLUME 500 mL; TOTAL HEMOGLOBIN 15.4 G/dl (13.5-17.5)
--- NOTE | 2025-05-10 13:16 | RADIOLOGY REPORT ---
EXAM: DI CHEST,SINGLE VIEW HISTORY: new line placement COMPARISON: DI CHEST,SINGLE VIEW on DOS: 05/10/25, DI CHEST,SINGLE VIEW on DOS: 05/10/25, DI CHEST,SINGLE VIEW on DOS: 05/06/25, DI CHEST,SINGLE VIEW on DOS: 03/18/25, DI CHEST,SINGLE VIEW on DOS: 12/04/24 TECHNIQUE: Portable AP view of the chest was performed. FINDINGS: Endotracheal tube is re-identified with its tip 3.9 cm above the penelope. Right IJ central line is newly identified with its tip in the SVC-RA junction. Left IJ central line is newly identified with its tip in the mid SVC. There is diffuse interstitial prominence, greater centrally and in the lung bases. No pneumothorax. The heart is enlarged. The central pulmonary arteries are ectatic. IMPRESSION: 1. Endotracheal tube in good position. 2. Bilateral IJ central lines as detailed above, both of which are in good position, without evidence of pneumothorax. 3. Cardiomegaly and interstitial prominence suggestive of CHF.
--- NOTE | 2025-05-10 13:38 | PROCEDURE NOTE- Residance ---
Procedure Note Providers to CC ~ Planned Procedure Left internal jugular vein central line placement Description A time-out was completed verifying correct patient, procedure, site, and positioning. The patient was placed in appropriate dependent position for central line placement. The patients left neck was prepped and draped in sterile fashion. Ultrasound was used to identify the vein and observe the needle entering the vein. A quadruple lumen catheter was introduced into the internal jugular vein using Seldinger technique. The catheter was threaded smoothly over the guide wire and guide wire was removed. Appropriate blood return was obtained and each lumen of the catheter was evacuated of air and flushed with sterile saline. The catheter was then sutured in place to the skin and a sterile dressing applied. The patient tolerated the procedure well and there were no complications. Blood loss was minimal. Postprocedure x-ray reviewed confirming line placement and no pneumothorax. Date of Service: May 10, 2025 Billing Provider: HÉCTOR THOMAS MD [facility] May 10, 2025 13:38 HÉCTOR THOMAS MD May 15, 2025 10:21
--- NOTE | 2025-05-10 13:39 | PROCEDURE NOTE- Residance ---
Procedure Note Providers to CC ~ Planned Procedure Right internal jugular vein Robert catheter placement Description A time-out was completed verifying correct patient, procedure, site, and positioning. The patient was placed in appropriate dependent position for central line placement. The patients right neck was prepped and draped in sterile fashion. 1% Lidocaine was used to anesthetize the surrounding skin area. Ultrasound was used to identify the vein and observe the needle entering the vein. A double lumen catheter was introduced into the internal jugular vein using Seldinger technique. The catheter was threaded smoothly over the guide wire and guide wire was removed. Appropriate blood return was obtained and each lumen of the catheter was evacuated of air and flushed with sterile saline. The catheter was then sutured in place to the skin and a sterile dressing applied. The patient tolerated the procedure well and there were no complications. Blood loss was minimal. Postprocedure x-ray reviewed confirming line placement and no pneumothorax. Date of Service: May 10, 2025 [facility] May 10, 2025 13:39 HÉCTOR THOMAS MD May 15, 2025 10:21
--- NOTE | 2025-05-10 13:43 | PROCEDURE NOTE- Residance ---
Procedure Note Providers to CC ~ Planned Procedure Endotracheal intubation Description A time out was performed. My hands were washed immediately prior to the procedure. I wore a surgical cap, mask with protective eyewear, gown and gloves throughout the procedure. The patient was placed on a surveillance system monitor including continuous pulse oximetry. Rapid Sequence Intubation was conducted. The patient received 40 mg of etomidate for induction and 100 mg of rocuronium for adequate paralysis. Cricoid pressure was maintained from time induction agent was given to time of cuff balloon inflation. Using a 4.0 laryngoscope and a size 8.0 mm endotracheal tube with stylet, the patient was intubated on the 2nd attempt. The stylet was removed and cuff balloon was inflated. Appropriate endotracheal tube position was confirmed by direct visualization of vocal cord passage, fogging of the tube, CO2 colormetric indicator and symmetric breath sounds. The tube was secured at 25 cm at the lips. Post intubation chest x-ray reviewed confirming placement. Date of Service: May 10, 2025 Billing Provider: HÉCTOR THOMAS MD [facility], [facility] May 10, 2025 13:43 HÉCTOR THOMAS MD May 15, 2025 10:21
[2025-05-10] MEDS: bicarb dialysis sol 2K+/3 Ca2+ 5,000 ML HE SCH ×2 (14:22→14:35)
[2025-05-10] MEDS ORDERED: bicarb dialysis sol 2K+/3 Ca2+ 5,000 ML HE SCH (14:35)
[2025-05-10 15:23] LABS: MEAN PLATELET VOLUME 8.7 FL (7.4-10.4); RED CELL DISTRIBUTION WIDTH 17.7 % (11.5-14.5)
[2025-05-10 15:31] LABS: CALCIUM CVVH 8.5 MG/DL (8.5-10.1); CREATININE 2.73 MG/DL (0.60-1.10); PHOSPHORUS 5.7 MG/DL (2.3-4.5); TOTAL CARBON DIOXIDE 25.8 MMOL/L (24-32); eGFR 25 ML/MIN
[2025-05-10] MEDS ORDERED: mag hydrox/Alum hydrox/simeth 30ml oral suspension OGT PRN (16:06)
[2025-05-10] MEDS ORDERED: magnesium hydroxide 30ml (MOM) UD suspension OGT PRN (16:07)
[2025-05-10 16:15] LABS: MEAN PLATELET VOLUME 9.0 FL (7.4-10.4); RED CELL DISTRIBUTION WIDTH 18.1 % (11.5-14.5)
[2025-05-10 16:28] LABS: CALCIUM CVVH 8.5 MG/DL (8.5-10.1); CREATININE 2.73 MG/DL (0.60-1.10); PHOSPHORUS 5.8 MG/DL (2.3-4.5); TOTAL CARBON DIOXIDE 26.4 MMOL/L (24-32); eGFR 25 ML/MIN
[2025-05-10] MEDS: COMMUNICATION ORDER 1 EA MISC MC ONE (16:40)
[2025-05-10 17:25] LABS: MEAN PLATELET VOLUME 8.7 FL (7.4-10.4); RED CELL DISTRIBUTION WIDTH 18.2 % (11.5-14.5)
[2025-05-10 17:29] LABS: CALCIUM CVVH 8.7 MG/DL (8.5-10.1); CREATININE 2.63 MG/DL (0.60-1.10); PHOSPHORUS 5.6 MG/DL (2.3-4.5); TOTAL CARBON DIOXIDE 26.7 MMOL/L (24-32); eGFR 26 ML/MIN
[2025-05-10 18:15] LABS: MEAN PLATELET VOLUME 8.8 FL (7.4-10.4); RED CELL DISTRIBUTION WIDTH 18.2 % (11.5-14.5)
--- NOTE | 2025-05-10 18:23 | PROGRESS NOTE- Residence ---
Progress Note - Resident Providers to CC Resident Creating Document: LIZETH RIVERA, RES ~ Antibiotic Timeout Antibiotic Ordered?: Yes Subjective The patient was seen and examined at bedside today. He is intubated this morning because of refractory hypercapnia and noncompliance to BiPAP. He is also started on CRRT. After intubation, the patient went in and out of third- degree AV block likely secondary to hypoxia. Currently maintaining heart rate in 70s. Objective Vital Signs Date Time Temp Pulse Resp B/P (MAP) Pulse Ox O2 Delivery O2 Flow Rate FiO2 05/10/25 18:00 99.9 73 24 103/63 (76) 98 Mechanical Ventilator 90 05/10/25 11:00 20.0 Result Diagram: 05/10/25 1700 05/10/25 1700 General: Obese, Intubated and sedated HEENT: Conjunctiva pink, Sclera clear, Mucus Membranes moist. Neck: Supple without masses and tenderness. Resp: Coarse breath sounds bilaterally, no wheezing heard. Heart: Regular Rate and rhythm, normal S1 and S2 without murmur, rub or gallop. Abdomen: Soft and non tender no organomegaly Extremities: Left leg - erythematous, tender and swollen. Skin: Warm and Dry. Coagulation Studies Laboratory Tests Test 05/06/25 19:39 05/06/25 23:16 05/07/25 07:25 Activated Partial Thromboplast Time 30 SECONDS (22-32) Prothrombin Time 12.4 SECONDS (9.0-12.0) H INR International Normalized Ratio 1.3 INR D-Dimer 1.32 MG/L FEU (0-0.50) H D-Dimer Comment APTT (Heparin Protocol) 50 SECONDS (45-75) Coagulation Comments Plan Plan Infectious diseases: Severe sepsis Left lower extremity cellulitis WBC and procalcitonin trending down. Continue linezolid and cefepime. Wound cultures grew Proteus mirabilis, GAS, and Corynebacterium striatum. Continue wound care. Venous ultrasound lower extremity showed no evidence of DVT or thrombosis. Arterial ultrasound showed patent arteries. Respiratory system: Acute hypoxemic respiratory failure Likely secondary to sepsis Untreated sleep apnea and possible pulmonary hypertension Currently intubated and sedated on fentanyl 35 mcg/hour and Precedex 0.4 mcg/kg/hr. On PRVC, FiO2 90%, PEEP 18, tidal volume 500 and respiratory rate 22. Cardiology: Septic shock Intermittent third-degree AV block, resolved Likely secondary to hypoxemia. Currently the patient is maintaining his heart rate in 70s. Cardiology consulted. Currently on Levophed at 0.01 mcg/kg/minute. Nephrology: KEIRA likely secondary to vasomotor nephropathy Hyperkalemia, improving Nephrology on board. Started him on CRRT. Creatinine 2.63, EGFR 26, BUN 72. Potassium 6.0 this morning. Trended down to 4.9. Monitor I&Os. GI: Ischemic hepatitis LFTs significantly elevated. Continue monitoring. Nutrition: NPO currently. RD will be consulted tomorrow. Code Status: Full code DVT Prophylaxis: Lovenox Analgesia/Sedation: Fentanyl and Precedex Lines/Tubes: Right IJ Robert, left IJ central line GI Prophylaxis: Protonix Nutrition: NPO Disposition: Prognosis remains guarded. Critical care time spent greater than 35 minutes. Lizeth Rivera MD Internal Medicine Resident PGY-2 The patient was seen, examined and discussed with the attending physician, Dr. Thomas. The patient was seen, and case discussed during casting repairer rounds, at morning report and multidisciplinary rounds .Agree with above assessment Date of Service: May 10, 2025 Billing Provider: HÉCTOR THOMAS MD, SOWMYA MANJARI, RES May 10, 2025 18:23 HÉCTOR THOMAS MD May 15, 2025 10:16
--- NOTE | 2025-05-10 18:25 | PROGRESS NOTE- Residence ---
Progress Note - Resident Providers to CC Resident Creating Document: GM INTERIANO RES ~ Antibiotic Timeout Antibiotic Ordered?: Yes Subjective Patient seen and examined today. Not improving with BiPAP and so has been intubated. Also started on CRRT for refractory hyperkalemia, hyperphosphatemia, significantly decreased kidney functions. He is also requiring Levophed. He had episodes of third-degree AV block after intubation and since then maintained regular rate and rhythm. Cardiology-Dr. Hallman was consulted. T-max 101.3 in the last 24 hours Objective Vital Signs Date Time Temp Pulse Resp B/P (MAP) Pulse Ox O2 Delivery O2 Flow Rate FiO2 05/10/25 18:13 24 05/10/25 18:00 99.9 73 103/63 (76) 98 Mechanical Ventilator 90 05/10/25 11:00 20.0 Result Diagram: 05/10/25 1800 05/10/25 1700 General: Obese, Intubated and sedated HEENT: Conjunctiva pink, Sclera clear, Mucus Membranes moist. Neck: Supple without masses and tenderness. Resp: Coarse breath sounds bilaterally, no wheezing heard. Heart: Regular Rate and rhythm, normal S1 and S2 without murmur, rub or gallop. Abdomen: Soft and non tender no organomegaly Extremities: Left leg - erythematous, tender and swollen. Skin: Warm and Dry. Coagulation Studies Laboratory Tests Test 05/06/25 19:39 05/06/25 23:16 05/07/25 07:25 Activated Partial Thromboplast Time 30 SECONDS (22-32) Prothrombin Time 12.4 SECONDS (9.0-12.0) H INR International Normalized Ratio 1.3 INR D-Dimer 1.32 MG/L FEU (0-0.50) H D-Dimer Comment APTT (Heparin Protocol) 50 SECONDS (45-75) Coagulation Comments Assessment Assessment The 44-year-old male was admitted for left lower extremity cellulitis. Had acute hypoxemic respiratory failure and required BiPAP and eventually intubated. Currently being managed in ICU Plan Plan Infectious diseases: Septic shock Left lower extremity cellulitis WBC and procalcitonin trending down. Continue linezolid and cefepime. Wound cultures grew Proteus mirabilis, GAS, and Corynebacterium striatum. Continue wound care. Venous ultrasound lower extremity showed no evidence of DVT or thrombosis. Arterial ultrasound showed patent arteries. Requiring Levophed drip Respiratory system: Acute hypoxemic respiratory failure Likely secondary to sepsis Untreated sleep apnea and possible pulmonary hypertension Currently intubated and sedated on fentanyl 35 mcg/hour and Precedex 0.4 mcg/kg/hr. On PRVC, FiO2 90%, PEEP 18, tidal volume 500 and respiratory rate 22. Cardiology: Septic shock Intermittent third-degree AV block, resolved Likely secondary to hypoxemia. Currently the patient is maintaining his heart rate in 70s. Cardiology consulted. Currently on Levophed at 0.01 mcg/kg/minute. Correct electrolyte abnormalities with CRRT Nephrology: KEIRA likely secondary to vasomotor nephropathy Hyperkalemia, hyperphosphatemia, metabolic acidosis, oliguria Nephrology on board. Started him on CRRT. Creatinine 2.63, EGFR 26, BUN 72. Potassium 6.0 this morning. Trended down to 4.9. Monitor I&Os. GI Acute liver injury Likely due to ischemia LFTs significantly elevated Nutrition: NPO currently. RD will be consulted tomorrow. Code Status: Full code DVT Prophylaxis: Lovenox Analgesia/Sedation: Fentanyl and Precedex Lines/Tubes: Right IJ Robert, left IJ central line GI Prophylaxis: Protonix Nutrition: NPO Disposition: Guarded prognosis. Management as per molder vacuum Gm Interiano MD Internal Medicine Resident, PGY 3 Date of Service: May 10, 2025 Billing Provider: TETO DARBY MD Common Visit Codes: [id number] INP/OBS CARE(MOD) GM INTERIANO RES May 10, 2025 18:25 TETO DARBY MD May 10, 2025 20:51
[2025-05-10 18:31] LABS: CALCIUM CVVH 8.6 MG/DL (8.5-10.1); CREATININE 2.66 MG/DL (0.60-1.10); PHOSPHORUS 5.4 MG/DL (2.3-4.5); TOTAL CARBON DIOXIDE 25.0 MMOL/L (24-32); eGFR 26 ML/MIN
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
[2025-05-10] MEDS: docusate sodium 100mg/10ml UD cup OGT SCH (20:14)
[2025-05-10] MEDS: dexmedetomidin/NS 400mcg/100ml 100 ML IV PRN (21:35)
[2025-05-10 23:46] LABS: MEAN PLATELET VOLUME 8.5 FL (7.4-10.4); RED CELL DISTRIBUTION WIDTH 17.8 % (11.5-14.5)
[2025-05-10 23:59] LABS: CALCIUM CVVH 8.5 MG/DL (8.5-10.1); CREATININE 2.54 MG/DL (0.60-1.10); PHOSPHORUS 4.8 MG/DL (2.3-4.5); TOTAL CARBON DIOXIDE 27.4 MMOL/L (24-32); eGFR 28 ML/MIN
[2025-05-11] VITALS (37 sets, daily range): BP systolic 75–136; BP diastolic 44–87; PULSE 43–81; RESP 19–24; TEMP 98.8–99; O2SAT 24–100
--- NOTE | 2025-05-11 01:27 | PROGRESS NOTE ---
Progress Note Dictate Providers to CC ~ Antibiotic Ordered?: Yes Objective Vitals Vital Signs Date Time Temp Pulse Resp B/P (MAP) Pulse Ox O2 Delivery O2 Flow Rate FiO2 05/11/25 01:00 23 80 05/11/25 01:00 99.7 72 95/47 (63) 98 Mechanical Ventilator 05/10/25 11:00 20.0 Lab Results: 05/10/25 2330 05/10/25 2330 Coagulation Studies Laboratory Tests Test 05/06/25 19:39 05/06/25 23:16 05/07/25 07:25 Activated Partial Thromboplast Time 30 SECONDS (22-32) Prothrombin Time 12.4 SECONDS (9.0-12.0) H INR International Normalized Ratio 1.3 INR D-Dimer 1.32 MG/L FEU (0-0.50) H D-Dimer Comment APTT (Heparin Protocol) 50 SECONDS (45-75) Coagulation Comments Problem\Assessment\Plan Additional Plan Patient seen and evaluated using HIPPA compliant AV device Rounded with the RN and chargemaster specialist with the the RT Admitted for severe sepsis with foot infection/abscess Hx of ALFREDA, preserved EF heart failure Now intubated due to worsening resp failure Shock KEIRA Vent support Fluid resuscitation Levophed On CRRT Bronchodialtor BS Abx Continue rest of care CCT 60mins Daisy Contreras MD Sepsis Screening Skin Color: Normal DAISY CONTRERAS MD May 11, 2025 01:27
[2025-05-11] MEDS: ALPRAZolam 0.25mg tablet OGT PRN (02:26)
[2025-05-11 03:04] LABS: ABG BASE EXCESS -5.1 mmol/L (-2.0-3.0); ABG HCO3 22.7 mmol/L (21.0-28.0); ABG OXYGEN SATURATION 86.9 % (94.0-98.0); ABG PCO2 (T) 54.7 mmHg (35.0-48.0); ABG PH (T) 7.240 (7.350-7.450); ABG PO2 (T) 64.6 mmHg (83.0-108.0); ALLEN'S TEST Modified; FCOHb 0.8 % (0.5-1.5); FHHb 13.0 % (0.0-5.0); FIO2 80.0 mmHg/%; FMetHb 0.0 % (0.0-1.5); FO2Hb 86.2 % (94.0-98.0); MODE prvc; PATIENT TEMPERATURE 37.6; PEEP 18 cm H2O; RESPIRATORY RATE 22 b/min; TIDAL VOLUME 500 mL; TOTAL HEMOGLOBIN 15.2 G/dl (13.5-17.5)
[2025-05-11 05:08] LABS: MEAN PLATELET VOLUME 8.1 FL (7.4-10.4); RED CELL DISTRIBUTION WIDTH 18.2 % (11.5-14.5)
[2025-05-11 05:24] LABS: CALCIUM CVVH 8.5 MG/DL (8.5-10.1); CREATININE 2.19 MG/DL (0.60-1.10); PHOSPHORUS 4.6 MG/DL (2.3-4.5); TOTAL CARBON DIOXIDE 26.2 MMOL/L (24-32); eCRCL 51 ML/MIN; eGFR 33 ML/MIN
--- NOTE | 2025-05-11 05:51 | RADIOLOGY REPORT ---
CHEST RADIOGRAPH Indication: ET Tube PLacement Technique: 1 view Comparison: DI CHEST,SINGLE VIEW on DOS: 05/10/25, DI CHEST,SINGLE VIEW on DOS: 05/10/25, DI CHEST,SINGLE VIEW on DOS: 05/10/25, DI CHEST,SINGLE VIEW on DOS: 05/06/25, DI CHEST,SINGLE VIEW on DOS: 03/18/25 FINDINGS: Lines and Tubes: Unchanged. Lungs/Pleura: Unchanged. Cardiomediastinum: Unchanged. Other: Unchanged osseous structures. IMPRESSION: 1. No significant change from the previous study. Stable support devices. Persistent perihilar interstitial opacities, cardiomegaly and suspected pleural effusions.
--- NOTE | 2025-05-11 08:45 | PROGRESS NOTE ---
Progress Note Dictate Providers to CC ~ Central Line/PICC still needed: Yes Central Line/PICC Necessity: Req HD/Plasmapheresis Andersen Indications Met/Not Met: F/C Indications Met Antibiotic Ordered?: Yes Subjective Subjective The patient is currently intubated. He is needing higher FiO2. he has higher CVP. Needs moer fluid taken off per hour, if tolerated. will proceed with 50 cc negative balance first and if he continues to tolerate it, go up to 100 cc negaitve balance per hour. Objective Vitals Vital Signs Date Time Temp Pulse Resp B/P (MAP) Pulse Ox O2 Delivery O2 Flow Rate FiO2 05/11/25 07:27 68 24 92 90 05/11/25 07:03 113/78 05/11/25 07:00 98.8 Mechanical Ventilator 05/10/25 11:00 20.0 Lab Results: 05/11/25 0455 05/11/25 0455 Objective Vital Signs: As above, intuabted General: Normal body habitus, no acute distress. Skin: No rashes, lumps, ulcers, blisters, purpura or petechiae HEENT: Anicteric sclera, CYNDI Neck: Supple and nontender without enlargement of the thyroid, or lymphadenopathy. Chest: Normal size and shape, no tenderness, CTA bilaterally Heart: Regular. No jugular venous distention, S1 and S2 heard , no gallop Abdomen: Soft and non tender no organomegaly,BS+ Extremities: left leg very erythematous and warm. Neuro: Nonfocal. Coagulation Studies Laboratory Tests Test 05/06/25 19:39 05/06/25 23:16 05/07/25 07:25 Activated Partial Thromboplast Time 30 SECONDS (22-32) Prothrombin Time 12.4 SECONDS (9.0-12.0) H INR International Normalized Ratio 1.3 INR D-Dimer 1.32 MG/L FEU (0-0.50) H D-Dimer Comment APTT (Heparin Protocol) 50 SECONDS (45-75) Coagulation Comments Advance Care Planning Advanced Care plannin - 30 Minutes Problem\Assessment\Plan Problems/Diagnosis: (1) Hyperkalemia Assessment & Plan: secondary to ongoing azotemia + use of spironolactone until admission + tissue ischemia. lactate is better and LFTs are taming out, with the cvvh in progress. Make sure there is no necrotizing fasciitis. iCu folowing. CVVh in progerss. as discussed above, will start removing more fluids per hour as tolerated. (2) Acute kidney injury Assessment & Plan: as above. contrast exposure, ischemic ATN in progress with hepatic failure most likely from sepsis. keep a close watch for any necrotizing fasciitis. (3) Wound cellulitis Assessment & Plan: closer monitoring of the wound and rule out any nec fasc. critically ill. Sepsis Screening Skin Color: Normal TAYLER REID MD May 11, 2025 08:45
[2025-05-11] MEDS: SODIUM ZIRCONIUM CYCLOSILICATE 10 GM POWD.PACK OGT SCH (11:00)
[2025-05-11 11:25] LABS: ABG BASE EXCESS -2.2 mmol/L (-2.0-3.0); ABG HCO3 24.9 mmol/L (21.0-28.0); ABG OXYGEN SATURATION 94.3 % (94.0-98.0); ABG PCO2 (T) 51.2 mmHg (35.0-48.0); ABG PH (T) 7.304 (7.350-7.450); ABG PO2 (T) 77.6 mmHg (83.0-108.0); ALLEN'S TEST POSITIVE; FCOHb 0.7 % (0.5-1.5); FHHb 5.6 % (0.0-5.0); FIO2 90.0 mmHg/%; FMetHb 0.3 % (0.0-1.5); FO2Hb 93.4 % (94.0-98.0); MODE VENT - PRVC; PATIENT TEMPERATURE 37.0; PEEP 18 cm H2O; RESPIRATORY RATE 24 b/min; TIDAL VOLUME 500 mL; TOTAL HEMOGLOBIN 15.1 G/dl (13.5-17.5)
--- NOTE | 2025-05-11 12:13 | PROGRESS NOTE- Residence ---
Progress Note - Resident Providers to CC Resident Creating Document: AMPAROLIZETH FUNES ROXY, PARTHA ~ Antibiotic Timeout Antibiotic Ordered?: Yes Subjective Patient seen and examined today. Continues to be extubated still on 90% FiO2 and 18 PEEP. On CVVH, started to pull off 200 mL/hour since this morning. Also on Levophed. Objective Vital Signs Date Time Temp Pulse Resp B/P (MAP) Pulse Ox O2 Delivery O2 Flow Rate FiO2 05/11/25 11:48 129/93 05/11/25 11:27 69 24 96 80 05/11/25 11:00 98.6 Mechanical Ventilator 05/11/25 09:42 20 Result Diagram: 05/11/25 0455 05/11/25 0455 General: Obese, Intubated and sedated HEENT: Conjunctiva pink, Sclera clear, Mucus Membranes moist. Neck: Supple without masses and tenderness. Resp: Coarse breath sounds bilaterally, no wheezing heard. Heart: Regular Rate and rhythm, normal S1 and S2 without murmur, rub or gallop. Abdomen: Soft and non tender no organomegaly Extremities: Left leg - erythematous, and swollen. Appears better than yesterday. No weepage. Skin: Warm and Dry. Coagulation Studies Laboratory Tests Test 05/06/25 19:39 05/06/25 23:16 05/07/25 07:25 Activated Partial Thromboplast Time 30 SECONDS (22-32) Prothrombin Time 12.4 SECONDS (9.0-12.0) H INR International Normalized Ratio 1.3 INR D-Dimer 1.32 MG/L FEU (0-0.50) H D-Dimer Comment APTT (Heparin Protocol) 50 SECONDS (45-75) Coagulation Comments Assessment Assessment The 44-year-old male was admitted for left lower extremity cellulitis. Had acute hypoxemic respiratory failure and required BiPAP and eventually intubated. Currently being managed in ICU Plan Plan Infectious diseases: Severe sepsis Left lower extremity cellulitis WBC and procalcitonin trending up. Continue linezolid and cefepime. Wound cultures grew Proteus mirabilis, GAS, and Corynebacterium striatum. Continue wound care. Venous ultrasound lower extremity showed no evidence of DVT or thrombosis. Arterial ultrasound showed patent arteries. Respiratory system: Acute hypoxemic respiratory failure Likely secondary to sepsis Untreated sleep apnea and possible pulmonary hypertension Currently intubated and sedated on fentanyl 300 mcg/hour and Precedex 0.8 mcg/kg/hr. On PRVC, FiO2 90%, PEEP 18, tidal volume 500 and respiratory rate 24. Cardiology: Septic shock Intermittent third-degree AV block, resolved Likely secondary to hypoxemia. Currently the patient is maintaining his heart rate in 70s. He had six beat run of V-tach this morning. Cardiology is on board. Maintain potassium above four and magnesium above two. Currently on Levophed at 0.03 mcg/kg/minute. Nephrology: KEIRA likely secondary to vasomotor nephropathy Hyperkalemia, resolved Nephrology on board. Started him on CRRT. Trying to pull off 200 mL/hour. Creatinine 2.19, EGFR 33, BUN 54. Potassium within normal limits. Phosphorus till 4.6. Monitor I&Os. GI: Ischemic hepatitis LFTs trending down. Maintain MAP above 65. Continue monitoring. Nutrition: RD consulted. Started him on tube feeds Vital HP at 70 mL/hour. Goal rate 90 mL/hour. Code Status: Full code DVT Prophylaxis: Lovenox Analgesia/Sedation: Fentanyl and Precedex Lines/Tubes: Right IJ Robert, left IJ central line GI Prophylaxis: Protonix Nutrition: Tube feeds Disposition: Prognosis remains guarded. Critical care time spent greater than 35 minutes. Lizeth Cano MD Internal Medicine Resident PGY-2 The patient was seen, examined and discussed with the attending physician, Dr. Wu. Date of Service: May 11, 2025 Billing Provider: HÉCTOR WU MD,LIZETH RAMSEY, RES May 11, 2025 12:13
[2025-05-11 12:33] LABS: MEAN PLATELET VOLUME 8.3 FL (7.4-10.4)
[2025-05-11 12:34] LABS: RED CELL DISTRIBUTION WIDTH 17.8 % (11.5-14.5)
[2025-05-11 12:44] LABS: CALCIUM CVVH 8.8 MG/DL (8.5-10.1); CREATININE 1.97 MG/DL (0.60-1.10); PHOSPHORUS 4.6 MG/DL (2.3-4.5); TOTAL CARBON DIOXIDE 26.8 MMOL/L (24-32); eGFR 37 ML/MIN
[2025-05-11 13:10] LABS: BANDS% (MANUAL) 1.0 % (0-10); EOSINOPHILS % (MANUAL) 2.0 % (0-6); METAMYLEOCYTES% (MANUAL) 6.0 % (0-0); MONOCYTES % (MANUAL) 7.0 % (2-12); NEUTROPHILS % (MANUAL) 78.0 % (42-75); NUCLEATED RED BLOOD CELLS 3 /100WBC (0-0)
[2025-05-11 13:11] LABS: LYMPHOCYTES % (MANUAL) 6.0 % (21-51); PLATELET ESTIMATE NORMAL
[2025-05-11 13:12] LABS: LARGE PLATELETS FEW
[2025-05-11] MEDS: mineral oil/petrolatum ophthal oint EACHEYE SCH (14:30)
[2025-05-11] MEDS: fentaNYL 2,500 MCG in Normal Saline 250ml IV soln bag IV SCH (14:33)
[2025-05-11 17:05] LABS: MEAN PLATELET VOLUME 7.8 FL (7.4-10.4); RED CELL DISTRIBUTION WIDTH 17.9 % (11.5-14.5)
[2025-05-11 17:21] LABS: CALCIUM CVVH 8.6 MG/DL (8.5-10.1); CREATININE 1.96 MG/DL (0.60-1.10); PHOSPHORUS 4.6 MG/DL (2.3-4.5); TOTAL CARBON DIOXIDE 27.6 MMOL/L (24-32); eGFR 37 ML/MIN
[2025-05-11 17:32] LABS: BANDS% (MANUAL) 5.0 % (0-10); EOSINOPHILS % (MANUAL) 4.0 % (0-6); LYMPHOCYTES % (MANUAL) 6.0 % (21-51); METAMYLEOCYTES% (MANUAL) 1.0 % (0-0); MONOCYTES % (MANUAL) 4.0 % (2-12); NEUTROPHILS % (MANUAL) 80.0 % (42-75); NUCLEATED RED BLOOD CELLS 3 /100WBC (0-0)
[2025-05-11 17:34] LABS: PLATELET ESTIMATE NORMAL
--- NOTE | 2025-05-11 18:38 | PROGRESS NOTE- Residence ---
Progress Note - Resident Providers to CC Resident Creating Document: FLOYD DOUGLAS RES ~ Antibiotic Timeout Antibiotic Ordered?: Yes Subjective Patient seen and examined today. still on 90% FiO2 and 18 PEEP. On CVVH, started to pull off 200 mL/hour since this morning. Also on Levophed. No new cardiac events except VPCs. Objective Vital Signs Date Time Temp Pulse Resp B/P (MAP) Pulse Ox O2 Delivery O2 Flow Rate FiO2 05/11/25 18:00 98.4 62 24 102/64 (77) 98 Mechanical Ventilator 80 05/11/25 09:42 20 Result Diagram: 05/11/25 1645 05/11/25 1645 General: Obese, Intubated and sedated HEENT: Conjunctiva pink, Sclera clear, Mucus Membranes moist. Neck: Supple without masses and tenderness. Resp: Coarse breath sounds bilaterally, no wheezing heard. Heart: Regular Rate and rhythm, normal S1 and S2 without murmur, rub or gallop. Abdomen: Soft and non tender no organomegaly Extremities: Left leg - erythematous, and swollen. Appears better than yesterday. No weepage. Skin: Warm and Dry Coagulation Studies Laboratory Tests Test 05/06/25 19:39 05/06/25 23:16 05/07/25 07:25 Activated Partial Thromboplast Time 30 SECONDS (22-32) Prothrombin Time 12.4 SECONDS (9.0-12.0) H INR International Normalized Ratio 1.3 INR D-Dimer 1.32 MG/L FEU (0-0.50) H D-Dimer Comment APTT (Heparin Protocol) 50 SECONDS (45-75) Coagulation Comments Advance Care Planning Advanced Care plannin - 30 Minutes Assessment Assessment The 44-year-old male was admitted for left lower extremity cellulitis. Had acute hypoxemic respiratory failure and required BiPAP and eventually intubated. Currently being managed in ICU Plan Plan Mobitz type 2 block Third-degree AV block/AV dissociation, resolved Heart rate went down to 30s and then it went up to 70s and 80s on yesterday but today it is stable. Transient Third-degree AV block over the EKG could be secondary to multifactorial- most likely hypoxia with underlying morbid obesity and obstructive sleep apnea and hyperkalemia and it is resolved now and patient got back to the normal rhythm. Continue to monitor telemetry Maintain potassium more than 4 and Mag of more than 2 Recommended to discontinue Aldactone in view of hyperkalemia which may worsen it. Left lower extremity cellulitis Severe sepsis Acute hypoxemic respiratory failure Obstructive sleep apnea Possible Pulmonary hypertension KEIRA Hyperkalemia Ischemic hepatitis Management plan per bobbin cleaner hand, spider assembler team and patient is getting hemodialysis. Nothing much we can offer from Cardiology standpoint of view at this time and feel free to contact us if needed. Floyd Douglas IM resident, PGY 2 Cardiology Patient seen and examined again this evening by Dr. Jim MINAYA Patient sedated and intubated, FiO2 80%. No recurrence of any AV conduction abnormalities. Continue to monitor. Date of Service: May 11, 2025 Billing Provider: CARLO CURTIS MD, VENKATESH, RES May 11, 2025 18:38 CARLO CURTIS MD May 11, 2025 18:57
--- NOTE | 2025-05-11 18:44 | PROGRESS NOTE- Residence ---
Progress Note - Resident Providers to CC Resident Creating Document: GHASSAN INTERIANORAFI RES ~ Antibiotic Timeout Antibiotic Ordered?: Yes Subjective Patient seen and examined today. Continues to be intubated. Started remove fluid with CVVH. T-max 101.1 degree F in the last 24 hour. Left Lower extremity swelling and erythema Objective Vital Signs Date Time Temp Pulse Resp B/P (MAP) Pulse Ox O2 Delivery O2 Flow Rate FiO2 05/11/25 18:00 98.4 62 24 102/64 (77) 98 Mechanical Ventilator 80 05/11/25 09:42 20 Result Diagram: 05/11/25 1645 05/11/25 1645 General: Obese, Intubated and sedated HEENT: Conjunctiva pink, Sclera clear, Mucus Membranes moist. Neck: Supple without masses and tenderness. Resp: Coarse breath sounds bilaterally, no wheezing heard. Heart: Regular Rate and rhythm, normal S1 and S2 without murmur, rub or gallop. Abdomen: Soft and non tender no organomegaly Extremities: Left leg - erythematous, tender and swollen. Skin: Warm and Dry. Coagulation Studies Laboratory Tests Test 05/06/25 19:39 05/06/25 23:16 05/07/25 07:25 Activated Partial Thromboplast Time 30 SECONDS (22-32) Prothrombin Time 12.4 SECONDS (9.0-12.0) H INR International Normalized Ratio 1.3 INR D-Dimer 1.32 MG/L FEU (0-0.50) H D-Dimer Comment APTT (Heparin Protocol) 50 SECONDS (45-75) Coagulation Comments Assessment Assessment The 44-year-old male was admitted for left lower extremity cellulitis. Had acute hypoxemic respiratory failure and required BiPAP and eventually intubated. Currently being managed in ICU Plan Plan Infectious diseases: Septic shock Left lower extremity cellulitis WBC and procalcitonin trending up. Continue linezolid and cefepime. Wound cultures grew Proteus mirabilis, GAS, and Corynebacterium striatum. Continue wound care. Venous ultrasound lower extremity showed no evidence of DVT or thrombosis. Arterial ultrasound showed patent arteries. Requiring Levophed drip Respiratory system: Acute hypoxemic respiratory failure Likely secondary to sepsis Untreated sleep apnea and possible pulmonary hypertension Currently intubated and sedated on fentanyl 300 mcg/hour and Precedex 0.8 mcg/kg/hr. On PRVC, FiO2 90%, PEEP 18, tidal volume 500 and respiratory rate 24. Cardiology: Septic shock Intermittent third-degree AV block, resolved Nonsustained V-tach Likely secondary to hypoxemia. Currently the patient is maintaining his heart rate in 70s. He had six beat run of V-tach this morning. Cardiology is on board. Maintain potassium above four and magnesium above two. Currently on Levophed at 0.03 mcg/kg/minute. Nephrology: KEIRA likely secondary to vasomotor nephropathy Hyperkalemia, resolved Started CVVH yesterday Fluid being taken off from this morning - we will start with 50 cc/cc per hour and we will go up to 100 cc/hour negative fluid balance as tolerated and as per nephrology recommendations We will follow Nephrology recommendation GI: Ischemic hepatitis LFTs trending down. Maintain MAP above 65. Continue monitoring. Nutrition: RD consulted. Started him on tube feeds Vital HP at 70 mL/hour. Goal rate 90 mL/hour. Code Status: Full code DVT Prophylaxis: Lovenox Analgesia/Sedation: Fentanyl and Precedex Lines/Tubes: Right IJ Robert, left IJ central line GI Prophylaxis: Protonix Nutrition: Tube feeds Disposition: Prognosis remains guarded. Critical care time spent greater than 35 minutes. Gm Interiano MD Internal Medicine Resident, PGY 3 Date of Service: May 11, 2025 Billing Provider: TETO DARBY MD Common Visit Codes: [id number] INP/OBS CARE(MOD) GM INTERIANO RES May 11, 2025 18:44 TETO DARBY MD May 11, 2025 19:25
--- NOTE | 2025-05-11 21:58 | PROGRESS NOTE ---
Progress Note Dictate Providers to CC Cellulitis~ Central Line/PICC still needed: N\A Andersen Indications Met/Not Met: F/C Indications Met Antibiotic Ordered?: N/A MRSA Education MRSA Education Provided to pt: N/A Objective Vitals Vital Signs Date Time Temp Pulse Resp B/P (MAP) Pulse Ox O2 Delivery O2 Flow Rate FiO2 05/11/25 21:21 99.0 61 24 122/82 (95) 98 Mechanical Ventilator 98 05/11/25 09:42 20 Lab Results: 05/11/25 1645 05/11/25 1645 Coagulation Studies Laboratory Tests Test 05/06/25 19:39 05/06/25 23:16 05/07/25 07:25 Activated Partial Thromboplast Time 30 SECONDS (22-32) Prothrombin Time 12.4 SECONDS (9.0-12.0) H INR International Normalized Ratio 1.3 INR D-Dimer 1.32 MG/L FEU (0-0.50) H D-Dimer Comment APTT (Heparin Protocol) 50 SECONDS (45-75) Coagulation Comments Counseling Services Smoking & Tobacco Cessation: N/A Advance Care Planning Advanced Care planning: N/A Problem\Assessment\Plan Additional Plan Assessment The 44-year-old male was admitted for left lower extremity cellulitis. Had acute hypoxemic respiratory failure and required BiPAP and eventually intubated. Currently being managed in ICU Plan Septic shock Left lower extremity cellulitis Continue linezolid and cefepime. Wound cultures grew Proteus mirabilis, GAS, and Corynebacterium striatum. Requiring Levophed drip Blood cx x 2 negative Acute hypoxemic respiratory failure Currently intubated and sedated on fentanyl 300 and Precedex On PRVC, FiO2 90%, PEEP 18, tidal volume 500 and respiratory rate 24. Septic shock Intermittent third-degree AV block, resolved Nonsustained V-tach Currently on Levophed at 0.03 mcg/kg/minute. KEIRA likely secondary to vasomotor nephropathy CVVHD - net neg 200ml/hr Nutrition: tube feeds Vital HP at 90 mL/hour Code Status: Full code DVT Prophylaxis: Lovenox Analgesia/Sedation: Fentanyl and Precedex Lines/Tubes: Right IJ Robert, left IJ central line GI Prophylaxis: Protonix Nutrition: Tube feeds CC time 35 mins Ofelia Jessica MD Critical care Sepsis Screening Skin Color: Normal OFELIA JESSICA MD May 11, 2025 21:57
[2025-05-11 23:18] LABS: MEAN PLATELET VOLUME 8.1 FL (7.4-10.4); RED CELL DISTRIBUTION WIDTH 18.2 % (11.5-14.5)
[2025-05-11 23:38] LABS: CALCIUM CVVH 8.7 MG/DL (8.5-10.1); CREATININE 1.71 MG/DL (0.60-1.10); PHOSPHORUS 4.2 MG/DL (2.3-4.5); eGFR 44 ML/MIN
[2025-05-12] VITALS (37 sets, daily range): BP systolic 70–126; BP diastolic 40–75; PULSE 60–84; RESP 18–25; TEMP 99–99.4; O2SAT 87–97
[2025-05-12] LABS: TOTAL CARBON DIOXIDE 26.8 MMOL/L (24-32)
[2025-05-12 00:42] LABS: ABG BASE EXCESS -3.2 mmol/L (-2.0-3.0); ABG HCO3 24.4 mmol/L (21.0-28.0); ABG OXYGEN SATURATION 93.6 % (94.0-98.0); ABG PCO2 (T) 53.8 mmHg (35.0-48.0); ABG PH (T) 7.275 (7.350-7.450); ABG PO2 (T) 73.0 mmHg (83.0-108.0); ALLEN'S TEST Modified; FCOHb 0.8 % (0.5-1.5); FHHb 6.3 % (0.0-5.0); FIO2 100.0 mmHg/%; FMetHb 0.0 % (0.0-1.5); FO2Hb 92.9 % (94.0-98.0); MODE VENT - AC/PRVC; PATIENT TEMPERATURE 37.0; PEEP 18 cm H2O; RESPIRATORY RATE 22 b/min; TIDAL VOLUME 500 mL; TOTAL HEMOGLOBIN 15.5 G/dl (13.5-17.5)
[2025-05-12] MEDS ORDERED: midazolam 100mg in NS 100ml 100 ML IV PRN (01:05)
[2025-05-12] MEDS: midazolam 1 mg/ML 2ml injection IV ONE (01:18)
[2025-05-12] MEDS: midazolam 100mg in NS 100ml 100 ML IV PRN ×2 (01:19→14:39)
[2025-05-12] MEDS: rocuronium 10mg/ml inj IV ONE (02:10)
[2025-05-12] MEDS: BICARB DIALYSIS 4K/3 Ca2+sol 5,000 ML HE SCH (02:35)
[2025-05-12 04:16] LABS: ABG BASE EXCESS -3.6 mmol/L (-2.0-3.0); ABG HCO3 23.1 mmol/L (21.0-28.0); ABG OXYGEN SATURATION 97.4 % (94.0-98.0); ABG PCO2 (T) 48.9 mmHg (35.0-48.0); ABG PH (T) 7.294 (7.350-7.450); ABG PO2 (T) 102.1 mmHg (83.0-108.0); ALLEN'S TEST Modified; FCOHb 1.3 % (0.5-1.5); FHHb 2.6 % (0.0-5.0); FIO2 100.0 mmHg/%; FMetHb 0.3 % (0.0-1.5); FO2Hb 95.8 % (94.0-98.0); MODE VENT - AC/PRVC; PATIENT TEMPERATURE 37.4; PEEP 18 cm H2O; RESPIRATORY RATE 24 b/min; TIDAL VOLUME 500 mL; TOTAL HEMOGLOBIN 14.4 G/dl (13.5-17.5)
--- NOTE | 2025-05-12 05:41 | RADIOLOGY REPORT ---
CHEST RADIOGRAPH Indication: ET Tube PLacement Technique: Single frontal view of the chest was obtained COMPARISON: DI CHEST,SINGLE VIEW on DOS: 05/11/25, DI CHEST,SINGLE VIEW on DOS: 05/10/25, DI CHEST,SINGLE VIEW on DOS: 05/10/25, DI CHEST,SINGLE VIEW on DOS: 05/10/25, DI CHEST,SINGLE VIEW on DOS: 05/06/25 FINDINGS: Lines and Tubes: Endotracheal tube, enteric catheter and left central venous catheter in satisfactory position. Lungs: Mild pulmonary vascular congestion. Pleura: No effusion.No pneumothorax. Cardiomediastinal contours: Cardiomegaly, unchanged. Bones: Unremarkable IMPRESSION: Lines and tubes in satisfactory position. No significant interval change.
[2025-05-12 06:34] LABS: MEAN PLATELET VOLUME 8.4 FL (7.4-10.4); RED CELL DISTRIBUTION WIDTH 17.9 % (11.5-14.5)
[2025-05-12 06:43] LABS: CALCIUM CVVH 8.5 MG/DL (8.5-10.1); CREATININE 1.64 MG/DL (0.60-1.10); PHOSPHORUS 4.4 MG/DL (2.3-4.5); TOTAL CARBON DIOXIDE 27.3 MMOL/L (24-32); eCRCL 68 ML/MIN; eGFR 46 ML/MIN
[2025-05-12 08:16] LABS: BANDS% (MANUAL) 1.0 % (0-10); LYMPHOCYTES % (MANUAL) 3.0 % (21-51); METAMYLEOCYTES% (MANUAL) 8.0 % (0-0); MONOCYTES % (MANUAL) 9.0 % (2-12); MYELOCYTES % (MANUAL) 1.0 % (0-0); NEUTROPHILS % (MANUAL) 78.0 % (42-75); NUCLEATED RED BLOOD CELLS 3 /100WBC (0-0); PLATELET ESTIMATE NORMAL
[2025-05-12] MEDS ORDERED: lansoprazole 15mg solutab OGT SCH (08:29)
--- NOTE | 2025-05-12 08:39 | PROGRESS NOTE ---
Progress Note Dictate Providers to CC ~ Central Line/PICC still needed: Yes Central Line/PICC Necessity: Req HD/Plasmapheresis Andersen Indications Met/Not Met: F/C Indications Met Antibiotic Ordered?: Yes Subjective Subjective The patient remains on 80% FiO2. good negative fluid balance on CVVH. Patient remains on Linezolid. Caution for avoiding drug interaction that could cause serotonin syndrome. Watch for lactic acidosis from Linezolid as well. Objective Vitals Vital Signs Date Time Temp Pulse Resp B/P (MAP) Pulse Ox O2 Delivery O2 Flow Rate FiO2 05/12/25 08:22 24 05/12/25 07:22 62 97 80 05/12/25 07:00 99.3 101/61 (74) Mechanical Ventilator 05/11/25 09:42 20 Lab Results: 05/12/25 0616 05/12/25 0616 Objective Vital Signs: As above, intuabted General: Normal body habitus, no acute distress. Skin: No rashes, lumps, ulcers, blisters, purpura or petechiae HEENT: Anicteric sclera, CYNDI Neck: Supple and nontender without enlargement of the thyroid, or lymphadenopathy. Chest: Normal size and shape, no tenderness, CTA bilaterally Heart: Regular. No jugular venous distention, S1 and S2 heard , no gallop Abdomen: Soft and non tender no organomegaly,BS+ Extremities: left leg very erythematous and warm. Neuro: Nonfocal. Coagulation Studies Laboratory Tests Test 05/06/25 19:39 05/06/25 23:16 05/07/25 07:25 Activated Partial Thromboplast Time 30 SECONDS (22-32) Prothrombin Time 12.4 SECONDS (9.0-12.0) H INR International Normalized Ratio 1.3 INR D-Dimer 1.32 MG/L FEU (0-0.50) H D-Dimer Comment APTT (Heparin Protocol) 50 SECONDS (45-75) Coagulation Comments Advance Care Planning Advanced Care plannin - 30 Minutes Problem\Assessment\Plan Problems/Diagnosis: (1) Hyperkalemia Assessment & Plan: resolved with the CVVH (2) Acute kidney injury Assessment & Plan: as above. contrast exposure, ischemic ATN in progress with hepatic failure most likely from sepsis. keep a close watch for any necrotizing fasciitis. switch to 4K bath in the CVVH (3) Wound cellulitis Assessment & Plan: closer monitoring of the wound and rule out any nec fasc. critically ill. (4) Acute respiratory failure Assessment & Plan: on ventilator. trying to keep the negative balance going as tolerated with the CVVH (5) Septic shock Assessment & Plan: on multiple antibiotics. left leg cellulitis. awaiting CT of the LLE. Ok to use contrast to define the area well, as he is on CVVH. Additional Plan critically ill. took 30 minutes. Sepsis Screening Skin Color: Normal TAYLER REID MD May 12, 2025 08:39
[2025-05-12] MEDS: potassium Cl 40MEQ/270ML bag 270 ML IV PRN (10:09)
[2025-05-12 11:16] LABS: HBSAG SCREEN Negative (Negative)
[2025-05-12 11:17] LABS: MEAN PLATELET VOLUME 8.2 FL (7.4-10.4)
[2025-05-12 11:18] LABS: RED CELL DISTRIBUTION WIDTH 18.3 % (11.5-14.5)
[2025-05-12 11:32] LABS: CALCIUM CVVH 8.5 MG/DL (8.5-10.1); CREATININE 1.44 MG/DL (0.60-1.10); PHOSPHORUS 3.8 MG/DL (2.3-4.5); TOTAL CARBON DIOXIDE 27.7 MMOL/L (24-32); eGFR 53 ML/MIN
--- NOTE | 2025-05-12 12:22 | PROGRESS NOTE- Residence ---
Progress Note - Resident Providers to CC Resident Creating Document: JAYDONGM RES ~ Antibiotic Timeout Antibiotic Ordered?: Yes Subjective Patient seen and examined today. Sedated and intubated. Discontinued Precedex and started midazolam by the rotor balancer. Removing 200 cc/per hour fluid throws CVVH. Changed 2K bath to four K bath to maintain potassium more than four Objective Vital Signs Date Time Temp Pulse Resp B/P (MAP) Pulse Ox O2 Delivery O2 Flow Rate FiO2 05/12/25 11:00 24 80 05/12/25 11:00 99.1 68 95/65 (75) 96 Mechanical Ventilator 05/11/25 09:42 20 Result Diagram: 05/12/25 1100 05/12/25 1100 General: Obese, Intubated and sedated HEENT: Conjunctiva pink, Sclera clear, Mucus Membranes moist. Neck: Supple without masses and tenderness. Resp: Coarse breath sounds bilaterally, no wheezing heard. Heart: Regular Rate and rhythm, normal S1 and S2 without murmur, rub or gallop. Abdomen: Soft and non tender no organomegaly Extremities: Left leg - erythematous, tender and swollen. Skin: Warm and Dry. Coagulation Studies Laboratory Tests Test 05/06/25 19:39 05/06/25 23:16 05/07/25 07:25 Activated Partial Thromboplast Time 30 SECONDS (22-32) Prothrombin Time 12.4 SECONDS (9.0-12.0) H INR International Normalized Ratio 1.3 INR D-Dimer 1.32 MG/L FEU (0-0.50) H D-Dimer Comment APTT (Heparin Protocol) 50 SECONDS (45-75) Coagulation Comments Assessment Assessment The 44-year-old male was admitted for left lower extremity cellulitis. Had acute hypoxemic respiratory failure and required BiPAP and eventually intubated. Currently being managed in ICU Plan Plan Infectious diseases: Septic shock Left lower extremity cellulitis WBC trending up but procalcitonin trending down Continue linezolid and cefepime. Wound cultures grew Proteus mirabilis, GAS, and Corynebacterium striatum. Continue wound care. Venous ultrasound lower extremity showed no evidence of DVT or thrombosis. Arterial ultrasound showed patent arteries. Requiring Levophed drip Respiratory system: Acute hypoxemic respiratory failure ARDS Likely secondary to sepsis Untreated sleep apnea and possible pulmonary hypertension Currently intubated and sedated with fentanyl and midazolam On [facility], FiO2 80%, PEEP 18, tidal volume 500 and respiratory rate 24. Cardiology: Septic shock Intermittent third-degree AV block, resolved Nonsustained V-tach Likely secondary to hypoxemia. Currently the patient is maintaining his heart rate in 70s. He had six beat run of V-tach this morning. Cardiology is on board. Maintain potassium above four and magnesium above two. Currently on Levophed at 0.03 mcg/kg/minute. Nephrology: KEIRA likely secondary to vasomotor nephropathy Hyperkalemia, resolved Started CVVH on 05/10/2025 RFTs improving Fluid being taken off from this morning - Taking out 200 cc/hour negative fluid balance as tolerated and as per nephrology recommendations We will follow Nephrology recommendation 2K bath changed to 4K bath to maintain potassium more than four GI: Ischemic hepatitis LFTs trending down. Maintain MAP above 65. Continue monitoring. Nutrition: RD consulted. Started him on tube feeds with Goal rate 90 mL/hour. Code Status: Full code DVT Prophylaxis: Lovenox Analgesia/Sedation: Fentanyl and Midazolam Lines/Tubes: Right IJ Robert, left IJ central line GI Prophylaxis: Protonix Nutrition: Tube feeds Disposition: Prognosis remains guarded. Critical care time spent greater than 35 minutes. Management as per the rotor balancer Gm Interiano MD Internal Medicine Resident, PGY 3 Date of Service: May 12, 2025 Billing Provider: TTEO DARBY MD Common Visit Codes: [id number] INP/OBS CARE(MOD) GM INTERIANO RES May 12, 2025 12:22 TETO DARBY MD May 13, 2025 12:33
[2025-05-12 13:31] LABS: ABG BASE EXCESS -3.2 mmol/L (-2.0-3.0); ABG HCO3 25.3 mmol/L (21.0-28.0); ABG OXYGEN SATURATION 95.1 % (94.0-98.0); ABG PCO2 (T) 60.5 mmHg (35.0-48.0); ABG PH (T) 7.240 (7.350-7.450); ABG PO2 (T) 84.3 mmHg (83.0-108.0); ALLEN'S TEST POSITIVE; FCOHb 0.8 % (0.5-1.5); FHHb 4.8 % (0.0-5.0); FIO2 65.0 mmHg/%; FMetHb 0.3 % (0.0-1.5); FO2Hb 94.1 % (94.0-98.0); MODE VENT - AC; PATIENT TEMPERATURE 37.2; PEEP 18 cm H2O; RESPIRATORY RATE 18 b/min; TIDAL VOLUME 400 mL; TOTAL HEMOGLOBIN 15.0 G/dl (13.5-17.5)
--- NOTE | 2025-05-12 14:27 | PROGRESS NOTE- Residence ---
Progress Note - Resident Providers to CC Resident Creating Document: AMPAROLIZETH FUNES ROXY, PARTHA ~ Antibiotic Timeout Antibiotic Ordered?: Yes Subjective Patient seen and examined today. Sedated and intubated on 80% FiO2 and 18 PEEP. Decreased the TV from 500 to 400 with permissive hypercapnia. Was changed from precedex to versed last night. On CVVH, starting to maintain negative fluid balance. Still on levophed. Objective Vital Signs Date Time Temp Pulse Resp B/P (MAP) Pulse Ox O2 Delivery O2 Flow Rate FiO2 05/12/25 14:00 99.3 83 22 109/62 (78) 94 Mechanical Ventilator 65 05/11/25 09:42 20 Result Diagram: 05/12/25 1100 05/12/25 1100 General: Obese, Intubated and sedated HEENT: Conjunctiva pink, Sclera clear, Mucus Membranes moist. Neck: Supple without masses and tenderness. Resp: Coarse breath sounds bilaterally, no wheezing heard. Heart: Regular Rate and rhythm, normal S1 and S2 without murmur, rub or gallop. Abdomen: Soft and non tender no organomegaly Extremities: Left leg - erythematous, and less swollen with appearance of wrinkles. New blisters. No weepage. Skin: Warm and Dry. Coagulation Studies Laboratory Tests Test 05/06/25 19:39 05/06/25 23:16 05/07/25 07:25 Activated Partial Thromboplast Time 30 SECONDS (22-32) Prothrombin Time 12.4 SECONDS (9.0-12.0) H INR International Normalized Ratio 1.3 INR D-Dimer 1.32 MG/L FEU (0-0.50) H D-Dimer Comment APTT (Heparin Protocol) 50 SECONDS (45-75) Coagulation Comments Assessment Assessment The 44-year-old male was admitted for left lower extremity cellulitis. Had acute hypoxemic respiratory failure and required BiPAP and eventually intubated. Currently being managed in ICU Plan Plan Infectious diseases: Septic shock Left lower extremity cellulitis WBC trending up but procalcitonin trending down Continue linezolid and cefepime. Wound cultures grew Proteus mirabilis, GAS, and Corynebacterium striatum. Continue wound care. Venous ultrasound lower extremity showed no evidence of DVT or thrombosis. Arterial ultrasound showed patent arteries. Requiring Levophed drip Respiratory system: Acute hypoxemic respiratory failure ARDS Likely secondary to sepsis Untreated sleep apnea and possible pulmonary hypertension Currently intubated and sedated with fentanyl and midazolam On PRVC, FiO2 80%, PEEP 18, tidal volume 500 and respiratory rate 24. Decreased the TV from 500 to 400. Permissive hypercapnia till pH 7.20. If pH falls below 7.20, we will increase the tidal volume to 450 ml. Cardiology: Septic shock Intermittent third-degree AV block, resolved Nonsustained V-tach Currently the patient is maintaining his heart rate in 70s. Cardiology is on board. Maintain potassium above four and magnesium above two. Currently on Levophed. Nephrology: KEIRA likely secondary to vasomotor nephropathy Hyperkalemia, resolved Started CVVH on 05/10/2025 RFTs improving Fluid being taken off from this morning - Taking out 200 cc/hour negative fluid balance as tolerated and as per nephrology recommendations We will follow Nephrology recommendation 2K bath changed to 4K bath to maintain potassium more than four GI: Ischemic hepatitis LFTs trending down. Maintain MAP above 65. Continue monitoring. Nutrition: RD consulted. Started him on tube feeds with Goal rate 90 mL/hour. Code Status: Full code DVT Prophylaxis: Lovenox Analgesia/Sedation: Fentanyl and Midazolam Lines/Tubes: Right IJ Robert, left IJ central line GI Prophylaxis: Protonix Nutrition: Tube feeds Disposition: Prognosis remains guarded. Critical care time spent greater than 35 minutes. Lizeth Cano MD Internal Medicine Resident, PGY-2 The patient was seen, examined and discussed with the attending physician, Dr. Thomas. The patient was seen, and case discussed during termite technician rounds, at morning report and multidisciplinary rounds .Agree with above assessment Date of Service: May 12, 2025 Billing Provider: HÉCTOR THOMAS MD, SOWMYA MANJARI, RES May 12, 2025 14:27 HÉCTOR THOMAS MD May 15, 2025 10:19
[2025-05-12 16:27] LABS: ABG BASE EXCESS -1.8 mmol/L (-2.0-3.0); ABG HCO3 28.1 mmol/L (21.0-28.0); ABG OXYGEN SATURATION 88.2 % (94.0-98.0); ABG PCO2 (T) 72.4 mmHg (35.0-48.0); ABG PH (T) 7.207 (7.350-7.450); ABG PO2 (T) 61.4 mmHg (83.0-108.0); ALLEN'S TEST POSITIVE; FCOHb 1.2 % (0.5-1.5); FHHb 11.6 % (0.0-5.0); FIO2 45.0 mmHg/%; FMetHb 0.1 % (0.0-1.5); FO2Hb 87.1 % (94.0-98.0); MODE VENT - AC; PATIENT TEMPERATURE 36.8; PEEP 18 cm H2O; RESPIRATORY RATE 24 b/min; TIDAL VOLUME 400 mL; TOTAL HEMOGLOBIN 14.9 G/dl (13.5-17.5)
--- NOTE | 2025-05-12 16:55 | PROGRESS NOTE- Residence ---
Progress Note - Resident Providers to CC Resident Creating Document: FLOYD DOUGLAS RES ~ Antibiotic Timeout Antibiotic Ordered?: Yes Subjective Patient seen and examined today. Sedated and intubated on 80% FiO2 and 18 PEEP. Decreased the TV from 500 to 400 with permissive hypercapnia. Was changed from precedex to versed last night. On CVVH, starting to maintain negative fluid balance. Still on levophed. Objective Vital Signs Date Time Temp Pulse Resp B/P (MAP) Pulse Ox O2 Delivery O2 Flow Rate FiO2 05/12/25 16:00 99.0 80 24 111/66 (81) 94 Mechanical Ventilator 45 05/11/25 09:42 20 Result Diagram: 05/12/25 1100 05/12/25 1100 General: Obese, Intubated and sedated HEENT: Conjunctiva pink, Sclera clear, Mucus Membranes moist. Neck: Supple without masses and tenderness. Resp: Coarse breath sounds bilaterally, no wheezing heard. Heart: Regular Rate and rhythm, normal S1 and S2 without murmur, rub or gallop. Abdomen: Soft and non tender no organomegaly Extremities: Left leg - erythematous, and swollen. Appears better than yesterday. No weepage. Skin: Warm and Dry Coagulation Studies Laboratory Tests Test 05/06/25 19:39 05/06/25 23:16 05/07/25 07:25 Activated Partial Thromboplast Time 30 SECONDS (22-32) Prothrombin Time 12.4 SECONDS (9.0-12.0) H INR International Normalized Ratio 1.3 INR D-Dimer 1.32 MG/L FEU (0-0.50) H D-Dimer Comment APTT (Heparin Protocol) 50 SECONDS (45-75) Coagulation Comments Advance Care Planning Advanced Care plannin - 30 Minutes Assessment Assessment The 44-year-old male was admitted for left lower extremity cellulitis. Had acute hypoxemic respiratory failure and required BiPAP and eventually intubated. Currently being managed in ICU Plan Plan Mobitz type 2 block Third-degree AV block/AV dissociation, resolved Nonsustained V-tach Heart rate went down to 30s and then it went up to 70s and 80s on 05/10/2025 and it is stable now. Transient Third-degree AV block over the EKG could be secondary to multifactorial- most likely hypoxia with underlying morbid obesity and obstructive sleep apnea and hyperkalemia and it is resolved now and patient got back to the normal rhythm. Continue to monitor telemetry Maintain potassium more than 4 and Mag of more than 2 Recommended to discontinue Aldactone in view of hyperkalemia which may worsen it. Left lower extremity cellulitis Severe sepsis Acute hypoxemic respiratory failure Obstructive sleep apnea Possible Pulmonary hypertension KEIRA Hyperkalemia Ischemic hepatitis Management plan per windows server specialist, skip locator team. Nothing much we can offer from Cardiology standpoint of view at this time and we step back from the management plan and feel free to contact us if needed. Floyd Douglas IM resident, PGY 2 Cardiology Patient seen and examined by Dr. Jim MINAYA. Patient still intubated. No recurrence of any conduction disturbances or arrhythmias after correction of hypoxia and electrolyte abnormalities. We will sign off at this time. Thank Date of Service: May 12, 2025 Billing Provider: CARLO CURTIS MD, VENKATESH, RES May 12, 2025 16:55 CARLO CURTIS MD May 13, 2025 18:29
[2025-05-12 17:33] LABS: CALCIUM CVVH 8.6 MG/DL (8.5-10.1); CREATININE 1.37 MG/DL (0.60-1.10); PHOSPHORUS 4.8 MG/DL (2.3-4.5); TOTAL CARBON DIOXIDE 30.4 MMOL/L (24-32); eGFR 56 ML/MIN
[2025-05-12 18:29] LABS: MEAN PLATELET VOLUME 7.8 FL (7.4-10.4); RED CELL DISTRIBUTION WIDTH 17.1 % (11.5-14.5)
[2025-05-12 18:36] LABS: BANDS% (MANUAL) 6.0 % (0-10); EOSINOPHILS % (MANUAL) 3.0 % (0-6); LYMPHOCYTES % (MANUAL) 2.0 % (21-51); MONOCYTES % (MANUAL) 7.0 % (2-12); MYELOCYTES % (MANUAL) 1.0 % (0-0); NEUTROPHILS % (MANUAL) 81.0 % (42-75); NUCLEATED RED BLOOD CELLS 9 /100WBC (0-0)
--- NOTE | 2025-05-12 23:03 | PROGRESS NOTE ---
Progress Note Dictate Providers to CC sepsis~ Central Line/PICC still needed: N\A Andersen Indications Met/Not Met: F/C Indications Met Antibiotic Ordered?: N/A MRSA Education MRSA Education Provided to pt: N/A Objective Vitals Vital Signs Date Time Temp Pulse Resp B/P (MAP) Pulse Ox O2 Delivery O2 Flow Rate FiO2 05/12/25 22:54 113/70 05/12/25 22:47 72 24 95 45 05/12/25 22:01 98.6 05/12/25 21:01 Mechanical Ventilator 05/11/25 09:42 20 Lab Results: 05/12/25 1710 05/12/25 1710 Coagulation Studies Laboratory Tests Test 05/06/25 19:39 05/06/25 23:16 05/07/25 07:25 Activated Partial Thromboplast Time 30 SECONDS (22-32) Prothrombin Time 12.4 SECONDS (9.0-12.0) H INR International Normalized Ratio 1.3 INR D-Dimer 1.32 MG/L FEU (0-0.50) H D-Dimer Comment APTT (Heparin Protocol) 50 SECONDS (45-75) Coagulation Comments Counseling Services Smoking & Tobacco Cessation: N/A Advance Care Planning Advanced Care planning: N/A Problem\Assessment\Plan Additional Plan Assessment The 44-year-old male was admitted for left lower extremity cellulitis. Had acute hypoxemic respiratory failure and required BiPAP and eventually intubated. Currently being managed in ICU Plan Septic shock Left lower extremity cellulitis Continue linezolid and cefepime. Wound cultures grew Proteus mirabilis, GAS, and Corynebacterium striatum. Levophed drip Blood cx x 2 negative Acute hypoxemic respiratory failure Currently intubated and sedated on fentanyl 300 and Precedex On PRVC, FiO2 45%, PEEP 18, tidal volume 400 and respiratory rate 24. Septic shock Intermittent third-degree AV block, resolved Nonsustained V-tach Currently on Levophed KEIRA likely secondary to vasomotor nephropathy CVVHD - net neg 130ml/hr Nutrition: tube feeds Vital HP at 90 mL/hour Code Status: Full code DVT Prophylaxis: Lovenox Analgesia/Sedation: Fentanyl and Precedex Lines/Tubes: Right IJ Robert, left IJ central line GI Prophylaxis: Protonix Nutrition: Tube feeds CC time 35 mins Ofelia Yip MD Critical care Sepsis Screening Skin Color: Normal PILLI,OFELIA MD May 12, 2025 23:03
[2025-05-12 23:31] LABS: MEAN PLATELET VOLUME 8.1 FL (7.4-10.4); RED CELL DISTRIBUTION WIDTH 18.3 % (11.5-14.5)
[2025-05-12 23:41] LABS: CALCIUM CVVH 8.7 MG/DL (8.5-10.1); CREATININE 1.39 MG/DL (0.60-1.10); PHOSPHORUS 4.6 MG/DL (2.3-4.5); TOTAL CARBON DIOXIDE 27.9 MMOL/L (24-32); eGFR 55 ML/MIN
[2025-05-13] VITALS (35 sets, daily range): BP systolic 91–126; BP diastolic 47–72; PULSE 70–82; RESP 23–25; TEMP 98.4; O2SAT 89–100
[2025-05-13 02:36] LABS: ABG BASE EXCESS -1.8 mmol/L (-2.0-3.0); ABG HCO3 27.6 mmol/L (21.0-28.0); ABG OXYGEN SATURATION 86.1 % (94.0-98.0); ABG PCO2 (T) 69.1 mmHg (35.0-48.0); ABG PH (T) 7.220 (7.350-7.450); ABG PO2 (T) 55.6 mmHg (83.0-108.0); ALLEN'S TEST POSITIVE; FCOHb 0.9 % (0.5-1.5); FHHb 13.8 % (0.0-5.0); FIO2 45.0 mmHg/%; FMetHb 0.1 % (0.0-1.5); FO2Hb 85.2 % (94.0-98.0); MODE vent-ac prvc; PATIENT TEMPERATURE 37.0; PEEP 18 cm H2O; RESPIRATORY RATE 24 b/min; TIDAL VOLUME 400 mL; TOTAL HEMOGLOBIN 14.2 G/dl (13.5-17.5)
[2025-05-13 05:25] LABS: MEAN PLATELET VOLUME 8.1 FL (7.4-10.4); RED CELL DISTRIBUTION WIDTH 18.5 % (11.5-14.5)
--- NOTE | 2025-05-13 05:55 | RADIOLOGY REPORT ---
CHEST RADIOGRAPH INDICATION: ET Tube PLacement TECHNIQUE: Single frontal view of the chest was obtained COMPARISON: DI CHEST,SINGLE VIEW on DOS: 05/12/25, DI CHEST,SINGLE VIEW on DOS: 05/11/25, DI CHEST,SINGLE VIEW on DOS: 05/10/25, DI CHEST,SINGLE VIEW on DOS: 05/10/25, DI CHEST,SINGLE VIEW on DOS: 05/10/25 FINDINGS: Lines and Tubes: Interval advancement of endotracheal tube such that the tip projects approximately 3.7 cm above the level of the penelope. Remaining lines and tubes unchanged. Lungs: Stable appearing mild right basilar pulmonary airspace disease. Pleura: No effusion. No pneumothorax. Cardiomediastinal contours: Cardiomegaly. Bones: Unremarkable IMPRESSION: 1. Interval advancement of endotracheal tube such that the tip projects approximately 3.7 cm above the level of the penelope. Remaining lines and tubes unchanged. 2. Cardiomegaly. 3. Mild right basilar pulmonary airspace disease.
[2025-05-13 06:01] LABS: CALCIUM CVVH 8.2 MG/DL (8.5-10.1); CREATININE 1.39 MG/DL (0.60-1.10); PHOSPHORUS 4.1 MG/DL (2.3-4.5); TOTAL CARBON DIOXIDE 29.6 MMOL/L (24-32); eCRCL 80 ML/MIN; eGFR 55 ML/MIN
[2025-05-13 06:49] LABS: BANDS% (MANUAL) 6.0 % (0-10); EOSINOPHILS % (MANUAL) 2.0 % (0-6); LYMPHOCYTES % (MANUAL) 1.0 % (21-51); METAMYLEOCYTES% (MANUAL) 9.0 % (0-0); MONOCYTES % (MANUAL) 6.0 % (2-12); MYELOCYTES % (MANUAL) 1.0 % (0-0); NEUTROPHILS % (MANUAL) 75.0 % (42-75); NUCLEATED RED BLOOD CELLS 2 /100WBC (0-0); PLATELET ESTIMATE NORMAL
[2025-05-13 06:53] LABS: LARGE PLATELETS FEW
--- NOTE | 2025-05-13 09:07 | PROGRESS NOTE ---
Progress Note Dictate Providers to CC ~ Central Line/PICC still needed: Yes Central Line/PICC Necessity: Req HD/Plasmapheresis Andersen Indications Met/Not Met: F/C Indications Met Antibiotic Ordered?: Yes Subjective Subjective The patient remains on the ventilator. in septic shock. excellent negative fluid balance over last 24 hours yet again, with the CVVH. FiO2 is don to .45 Objective Vitals Vital Signs Date Time Temp Pulse Resp B/P (MAP) Pulse Ox O2 Delivery O2 Flow Rate FiO2 05/13/25 08:44 23 05/13/25 08:00 98.4 73 115/63 (80) 97 45 05/13/25 08:00 Mechanical Ventilator 05/11/25 09:42 20 Lab Results: 05/13/25 0517 05/13/25 0517 Objective Vital Signs: As above, intuabted General: Normal body habitus, no acute distress. Skin: No rashes, lumps, ulcers, blisters, purpura or petechiae HEENT: Anicteric sclera, CYNDI Neck: Supple and nontender without enlargement of the thyroid, or lymphadenopathy. Chest: Normal size and shape, no tenderness, CTA bilaterally Heart: Regular. No jugular venous distention, S1 and S2 heard , no gallop Abdomen: Soft and non tender no organomegaly,BS+ Extremities: left leg very erythematous and warm. Neuro: Nonfocal. Coagulation Studies Laboratory Tests Test 05/06/25 19:39 05/06/25 23:16 05/07/25 07:25 Activated Partial Thromboplast Time 30 SECONDS (22-32) Prothrombin Time 12.4 SECONDS (9.0-12.0) H INR International Normalized Ratio 1.3 INR D-Dimer 1.32 MG/L FEU (0-0.50) H D-Dimer Comment APTT (Heparin Protocol) 50 SECONDS (45-75) Coagulation Comments Advance Care Planning Advanced Care plannin - 30 Minutes Problem\Assessment\Plan Problems/Diagnosis: (1) Hyperkalemia Assessment & Plan: resolved with the CVVH (2) Acute kidney injury Assessment & Plan: as above. contrast exposure, ischemic ATN in progress with hepatic failure most likely from sepsis. keep a close watch for any necrotizing fasciitis. switch to 4K bath in the CVVH (3) Wound cellulitis Assessment & Plan: closer monitoring of the wound and rule out any nec fasc. critically ill. (4) Acute respiratory failure Assessment & Plan: on ventilator. FiO2 is down to .45 trying to keep the negative balance going as tolerated with the CVVH (5) Septic shock Assessment & Plan: on multiple antibiotics. left leg cellulitis. awaiting CT of the LLE. Ok to use contrast to define the area well, as he is on CVVH. Sepsis Screening Skin Color: Normal TAYLER REID MD May 13, 2025 09:07
[2025-05-13 11:21] LABS: MEAN PLATELET VOLUME 8.1 FL (7.4-10.4)
[2025-05-13 11:22] LABS: RED CELL DISTRIBUTION WIDTH 17.9 % (11.5-14.5)
[2025-05-13 11:48] LABS: CALCIUM CVVH 8.5 MG/DL (8.5-10.1); CREATININE 1.43 MG/DL (0.60-1.10); PHOSPHORUS 4.2 MG/DL (2.3-4.5); TOTAL CARBON DIOXIDE 28.6 MMOL/L (24-32); eGFR 53 ML/MIN
[2025-05-13] MEDS: CEFEPIME 2gm in D5W 50mL 50 ML IV SCH (16:25)
[2025-05-13] MEDS: docusate sodium 100mg/10ml UD cup OGT SCH (16:58)
[2025-05-13 17:33] LABS: MEAN PLATELET VOLUME 8.1 FL (7.4-10.4)
[2025-05-13 17:39] LABS: CALCIUM CVVH 8.7 MG/DL (8.5-10.1); CREATININE 1.54 MG/DL (0.60-1.10); PHOSPHORUS 4.2 MG/DL (2.3-4.5); TOTAL CARBON DIOXIDE 28.2 MMOL/L (24-32); eGFR 49 ML/MIN
[2025-05-13 18:08] LABS: RED CELL DISTRIBUTION WIDTH 17.2 % (11.5-14.5)
--- NOTE | 2025-05-13 18:46 | PROGRESS NOTE- Residence ---
Progress Note - Resident Providers to CC Resident Creating Document: GHASSAN INTERIANOABDOULAYEWAYNE RES ~ Antibiotic Timeout Antibiotic Ordered?: Yes Subjective Patient seen and examined today. Sedated and intubated and FiO2 decreased to 60%. Peep 18 Objective Vital Signs Date Time Temp Pulse Resp B/P (MAP) Pulse Ox O2 Delivery O2 Flow Rate FiO2 05/13/25 18:28 24 05/13/25 18:22 121/67 05/13/25 18:00 98.2 73 99 60 05/13/25 09:27 Mechanical Ventilator 05/11/25 09:42 20 Result Diagram: 05/13/25 1214 05/13/25 1214 General: Obese, Intubated and sedated HEENT: Conjunctiva pink, Sclera clear, Mucus Membranes moist. Neck: Supple without masses and tenderness. Resp: Coarse breath sounds bilaterally, no wheezing heard. Heart: Regular Rate and rhythm, normal S1 and S2 without murmur, rub or gallop. Abdomen: Soft and non tender no organomegaly Extremities: Left leg - erythematous, tender and swollen. Skin: Warm and Dry. Coagulation Studies Laboratory Tests Test 05/06/25 19:39 05/06/25 23:16 05/07/25 07:25 Activated Partial Thromboplast Time 30 SECONDS (22-32) Prothrombin Time 12.4 SECONDS (9.0-12.0) H INR International Normalized Ratio 1.3 INR D-Dimer 1.32 MG/L FEU (0-0.50) H D-Dimer Comment APTT (Heparin Protocol) 50 SECONDS (45-75) Coagulation Comments Assessment Assessment The 44-year-old male was admitted for left lower extremity cellulitis. Had acute hypoxemic respiratory failure and required BiPAP and eventually intubated. Currently being managed in ICU Plan Plan Infectious diseases: Septic shock Left lower extremity cellulitis WBC trending down Continue linezolid and cefepime as per culture sensitivities. Avoiding fluoroquinolones as patient is already having episodes nonsustained V-tach Wound cultures grew Proteus mirabilis, GAS, and Corynebacterium striatum. Continue wound care. Venous ultrasound lower extremity showed no evidence of DVT or thrombosis. Arterial ultrasound showed patent arteries. Requiring Levophed drip Respiratory system: Acute hypoxemic respiratory failure ARDS Likely secondary to sepsis Untreated sleep apnea and possible pulmonary hypertension Currently intubated and sedated with fentanyl and midazolam On PRVC, FiO2 60%, PEEP 18 Cardiology: Septic shock Intermittent third-degree AV block, resolved Nonsustained V-tach Likely secondary to hypoxemia. Currently the patient is maintaining his heart rate in 70s. He had six beat run of V-tach yesterday Cardiology is on board. Maintain potassium above four and magnesium above two. Currently on Levophed Nephrology: KEIRA likely secondary to vasomotor nephropathy Hyperkalemia, resolved Started CVVH on 05/10/2025 RFTs stable Fluid being taken off from this morning - Taking out 200 cc/hour negative fluid balance as tolerated and as per nephrology recommendations We will follow Nephrology recommendation 2K bath changed to 4K bath to maintain potassium more than four GI: Ischemic hepatitis LFTs trending down. Maintain MAP above 65. Continue monitoring. Nutrition: RD consulted. Started him on tube feeds with Goal rate 90 mL/hour. Code Status: Full code DVT Prophylaxis: Lovenox Analgesia/Sedation: Fentanyl and Midazolam Lines/Tubes: Right IJ Robert, left IJ central line GI Prophylaxis: Protonix Nutrition: Tube feeds Disposition: Prognosis remains guarded. Critical care time spent greater than 35 minutes. Management as per the nurse office Gm Interiano MD Internal Medicine Resident, PGY 3 Date of Service: May 13, 2025 Billing Provider: TETO DARBY MD Common Visit Codes: [id number] INP/OBS CARE(MOD) GM INTERIANO RES May 13, 2025 18:46 TETO DARBY MD May 23, 2025 08:46
--- NOTE | 2025-05-13 18:55 | PROGRESS NOTE- Residence ---
Progress Note - Resident Providers to CC Resident Creating Document: LIZETH RIVERA ROXY, RES ~ Antibiotic Timeout Antibiotic Ordered?: Yes Subjective Patient seen and examined today. Was initially on 45% FiO2 but had to bring it up to 60% because his PO2 was 55.6. Still on CRRT and Levophed. Objective Vital Signs Date Time Temp Pulse Resp B/P (MAP) Pulse Ox O2 Delivery O2 Flow Rate FiO2 05/13/25 18:28 24 05/13/25 18:22 121/67 05/13/25 18:00 98.2 73 99 60 05/13/25 09:27 Mechanical Ventilator 05/11/25 09:42 20 Result Diagram: 05/13/25 1214 05/13/25 1214 General: Obese, Intubated and sedated HEENT: Conjunctiva pink, Sclera clear, Mucus Membranes moist. Neck: Supple without masses and tenderness. Resp: Coarse breath sounds bilaterally, no wheezing heard. Heart: Regular Rate and rhythm, normal S1 and S2 without murmur, rub or gallop. Abdomen: Soft and non tender no organomegaly Extremities: Left leg - erythematous, and less swollen with appearance of wrinkles. New blisters. No weepage. Skin: Warm and Dry. Coagulation Studies Laboratory Tests Test 05/06/25 19:39 05/06/25 23:16 05/07/25 07:25 Activated Partial Thromboplast Time 30 SECONDS (22-32) Prothrombin Time 12.4 SECONDS (9.0-12.0) H INR International Normalized Ratio 1.3 INR D-Dimer 1.32 MG/L FEU (0-0.50) H D-Dimer Comment APTT (Heparin Protocol) 50 SECONDS (45-75) Coagulation Comments Assessment Assessment The 44-year-old male was admitted for left lower extremity cellulitis. Had acute hypoxemic respiratory failure and required BiPAP and eventually intubated. Currently being managed in ICU Plan Plan Infectious diseases: Septic shock Left lower extremity cellulitis WBC and procalcitonin trending down Continue linezolid and cefepime. Wound cultures grew Proteus mirabilis, GAS, and Corynebacterium striatum. Continue wound care. Venous ultrasound lower extremity showed no evidence of DVT or thrombosis. Arterial ultrasound showed patent arteries. Requiring Levophed drip at 0.01. Trying to wean off. Respiratory system: Acute hypoxemic respiratory failure ARDS Likely secondary to sepsis Untreated sleep apnea and possible pulmonary hypertension Currently intubated and sedated with fentanyl and midazolam On PRVC, FiO2 60%, PEEP 18, tidal volume 400 Cardiology: Septic shock Intermittent third-degree AV block, resolved Nonsustained V-tach Currently the patient is maintaining his heart rate in 70s. Cardiology is on board. Maintain potassium above four and magnesium above two. Currently on Levophed. Nephrology: KEIRA likely secondary to vasomotor nephropathy Hyperkalemia, resolved Started CVVH on 05/10/2025 RFTs improving Fluid being taken off from this morning - Taking out 200 cc/hour negative fluid balance as tolerated and as per nephrology recommendations We will follow Nephrology recommendation 2K bath changed to 4K bath to maintain potassium more than four GI: Ischemic hepatitis LFTs trending down. Maintain MAP above 65. Continue monitoring. Nutrition: RD consulted. Started him on tube feeds with Goal rate 90 mL/hour. Code Status: Full code DVT Prophylaxis: Lovenox Analgesia/Sedation: Fentanyl and Midazolam Lines/Tubes: Right IJ Robert, left IJ central line GI Prophylaxis: Protonix Nutrition: Tube feeds Disposition: Prognosis remains guarded. Critical care time spent greater than 35 minutes. Lizeth Rivrea MD Internal Medicine Resident, PGY-2 The patient was seen, examined and discussed with the attending physician, Dr. Thomas. The patient was seen, and case discussed during polls or surveys interviewer rounds, at morning report and multidisciplinary rounds .Agree with above assessment Date of Service: May 13, 2025 Billing Provider: HÉCTOR THOMAS MD, SOWMYA MANJARI, RES May 13, 2025 18:55 HÉCTOR THOMAS MD May 15, 2025 10:20
[2025-05-13 23:28] LABS: CALCIUM CVVH 8.9 MG/DL (8.5-10.1); CREATININE 1.58 MG/DL (0.60-1.10); PHOSPHORUS 3.8 MG/DL (2.3-4.5); TOTAL CARBON DIOXIDE 28.3 MMOL/L (24-32); eGFR 48 ML/MIN
[2025-05-13 23:35] LABS: MEAN PLATELET VOLUME 7.8 FL (7.4-10.4); RED CELL DISTRIBUTION WIDTH 17.8 % (11.5-14.5)
[2025-05-14] VITALS (37 sets, daily range): BP systolic 102–164; BP diastolic 48–100; PULSE 62–86; RESP 16–25; TEMP 75–98; O2SAT 91–100
[2025-05-14 01:23] LABS: BANDS% (MANUAL) 4.0 % (0-10); EOSINOPHILS % (MANUAL) 3.0 % (0-6); LYMPHOCYTES % (MANUAL) 4.0 % (21-51); METAMYLEOCYTES% (MANUAL) 3.0 % (0-0); MONOCYTES % (MANUAL) 8.0 % (2-12); MYELOCYTES % (MANUAL) 1.0 % (0-0); NEUTROPHILS % (MANUAL) 77.0 % (42-75); NUCLEATED RED BLOOD CELLS 6 /100WBC (0-0); PLATELET ESTIMATE NORMAL
[2025-05-14 02:34] LABS: ABG BASE EXCESS -4.0 mmol/L (-2.0-3.0); ABG HCO3 24.9 mmol/L (21.0-28.0); ABG OXYGEN SATURATION 99.4 % (94.0-98.0); ABG PCO2 (T) 62.1 mmHg (35.0-48.0); ABG PH (T) 7.220 (7.350-7.450); ABG PO2 (T) 157.4 mmHg (83.0-108.0); ALLEN'S TEST Modified; FCOHb 0.8 % (0.5-1.5); FHHb 0.6 % (0.0-5.0); FIO2 60.0 mmHg/%; FMetHb 0.0 % (0.0-1.5); FO2Hb 98.6 % (94.0-98.0); PATIENT TEMPERATURE 36.7; PEEP 18 cm H2O; RESPIRATORY RATE 24 b/min; TIDAL VOLUME 400 mL; TOTAL HEMOGLOBIN 13.8 G/dl (13.5-17.5)
[2025-05-14 05:28] LABS: MEAN PLATELET VOLUME 7.7 FL (7.4-10.4); RED CELL DISTRIBUTION WIDTH 17.0 % (11.5-14.5)
[2025-05-14 05:45] LABS: CALCIUM CVVH 8.7 MG/DL (8.5-10.1); CREATININE 1.79 MG/DL (0.60-1.10); PHOSPHORUS 4.2 MG/DL (2.3-4.5); TOTAL CARBON DIOXIDE 28.2 MMOL/L (24-32); eCRCL 62 ML/MIN; eGFR 41 ML/MIN
[2025-05-14 06:21] LABS: BANDS% (MANUAL) 6.0 % (0-10); LYMPHOCYTES % (MANUAL) 4.0 % (21-51); METAMYLEOCYTES% (MANUAL) 2.0 % (0-0); MONOCYTES % (MANUAL) 4.0 % (2-12); NEUTROPHILS % (MANUAL) 84.0 % (42-75); NUCLEATED RED BLOOD CELLS 5 /100WBC (0-0); PLATELET ESTIMATE NORMAL
--- NOTE | 2025-05-14 08:12 | RADIOLOGY REPORT ---
CHEST RADIOGRAPH INDICATION: ET Tube PLacement TECHNIQUE: Single frontal view of the chest was obtained COMPARISON: DI CHEST,SINGLE VIEW on DOS: 05/13/25, DI CHEST,SINGLE VIEW on DOS: 05/12/25, DI CHEST,SINGLE VIEW on DOS: 05/11/25, DI CHEST,SINGLE VIEW on DOS: 05/10/25, DI CHEST,SINGLE VIEW on DOS: 05/10/25, DI CHEST,SINGLE VIEW on DOS: 05/13/25 FINDINGS: Lines and Tubes: endotracheal tube tip projects approximately 3.7 cm above the level of the penelope. Remaining lines and tubes unchanged. Lungs: Stable appearing mild right basilar pulmonary airspace disease. Pleura: No effusion. No pneumothorax. Cardiomediastinal contours: Cardiomegaly. Bones: Unremarkable IMPRESSION: No interval change.
[2025-05-14 11:10] LABS: MEAN PLATELET VOLUME 7.8 FL (7.4-10.4); RED CELL DISTRIBUTION WIDTH 18.4 % (11.5-14.5)
[2025-05-14 11:28] LABS: CALCIUM CVVH 8.9 MG/DL (8.5-10.1); CREATININE 1.62 MG/DL (0.60-1.10); PHOSPHORUS 3.8 MG/DL (2.3-4.5); TOTAL CARBON DIOXIDE 29.0 MMOL/L (24-32); eGFR 46 ML/MIN
--- NOTE | 2025-05-14 13:47 | PROGRESS NOTE- Residence ---
Progress Note - Resident Providers to CC Resident Creating Document: GHASSAN INTERIANOMonikaSHIMON RES ~ Antibiotic Timeout Antibiotic Ordered?: Yes Subjective Patient seen and examined today. Remained sedated and intubated. Held Levophed last night. Slowly coming down on PEEP Objective Vital Signs Date Time Temp Pulse Resp B/P (MAP) Pulse Ox O2 Delivery O2 Flow Rate FiO2 05/14/25 13:00 97.3 67 24 106/58 (74) 99 40 05/14/25 08:00 Mechanical Ventilator 05/11/25 09:42 20 Result Diagram: 05/14/25 1050 05/14/25 1050 General: Obese, Intubated and sedated HEENT: Conjunctiva pink, Sclera clear, Mucus Membranes moist. Neck: Supple without masses and tenderness. Resp: Coarse breath sounds bilaterally, no wheezing heard. Heart: Regular Rate and rhythm, normal S1 and S2 without murmur, rub or gallop. Abdomen: Soft and non tender no organomegaly Extremities: Left leg - erythematous, tender and swollen. Skin: Warm and Dry. Coagulation Studies Laboratory Tests Test 05/06/25 19:39 05/06/25 23:16 05/07/25 07:25 Activated Partial Thromboplast Time 30 SECONDS (22-32) Prothrombin Time 12.4 SECONDS (9.0-12.0) H INR International Normalized Ratio 1.3 INR D-Dimer 1.32 MG/L FEU (0-0.50) H D-Dimer Comment APTT (Heparin Protocol) 50 SECONDS (45-75) Coagulation Comments Assessment Assessment The 44-year-old male was admitted for left lower extremity cellulitis. Had acute hypoxemic respiratory failure and required BiPAP and eventually intubated. Currently being managed in ICU Plan Plan Septic shock Left lower extremity cellulitis WBC stable Continue linezolid and cefepime as per culture sensitivities. Avoiding fluoroquinolones as patient is already having episodes nonsustained V-tach Wound cultures grew Proteus mirabilis, GAS, and Corynebacterium striatum. Continue wound care. Venous ultrasound lower extremity showed no evidence of DVT or thrombosis. Arterial ultrasound showed patent arteries. Off Levophed drip Respiratory system: Acute hypoxemic respiratory failure ARDS Likely secondary to sepsis Untreated sleep apnea and possible pulmonary hypertension Currently intubated and sedated with fentanyl and midazolam On PRVC, FiO2 40%, PEEP 16 Cardiology: Septic shock Intermittent third-degree AV block, resolved Nonsustained V-tach Likely secondary to hypoxemia. Currently the patient is maintaining his heart rate in 70s. He had six beat run of V-tach about 2 days back Cardiology is on board. Maintain potassium above four and magnesium above two. Off Levophed Nephrology: KEIRA likely secondary to vasomotor nephropathy Hyperkalemia, resolved Started CVVH on 05/10/2025 RFTs impproving Fluid being taken off as per nephrology recommendations We will follow Nephrology recommendation 2K bath changed to 4K bath to maintain potassium more than four GI: Ischemic hepatitis LFTs trending down. Maintain MAP above 65. Continue monitoring. Nutrition: RD consulted. Started him on tube feeds with Goal rate 90 mL/hour. Code Status: Full code DVT Prophylaxis: Lovenox Analgesia/Sedation: Fentanyl and Midazolam Lines/Tubes: Right IJ Robert, left IJ central line GI Prophylaxis: Protonix Nutrition: Tube feeds Disposition: Prognosis remains guarded. Critical care time spent greater than 35 minutes. Management as per the sheep or calf grader Josie Interiano MD Internal Medicine Resident, PGY 3 Date of Service: May 14, 2025 Billing Provider: JOSE BLAS MD, MANOJNA RES May 14, 2025 13:47
[2025-05-14 17:34] LABS: MEAN PLATELET VOLUME 7.9 FL (7.4-10.4); RED CELL DISTRIBUTION WIDTH 18.6 % (11.5-14.5)
[2025-05-14 17:56] LABS: CALCIUM CVVH 9.1 MG/DL (8.5-10.1); CREATININE 1.81 MG/DL (0.60-1.10); PHOSPHORUS 3.6 MG/DL (2.3-4.5); TOTAL CARBON DIOXIDE 29.1 MMOL/L (24-32); eGFR 41 ML/MIN
--- NOTE | 2025-05-14 18:42 | PROGRESS NOTE ---
Progress Note Dictate Providers to CC ~ Central Line/PICC still needed: Yes Central Line/PICC Necessity: Req HD/Plasmapheresis Andersen Indications Met/Not Met: F/C Indications Met Antibiotic Ordered?: Yes Subjective Subjective The patient is on ventilator. still on PEEP of 18 and FiO2 is down to 40%. Unable to get the CT of the left leg yet. CVVH running. we have been removing 200 cc per hour of Ultrafiltration. Objective Vitals Vital Signs Date Time Temp Pulse Resp B/P (MAP) Pulse Ox O2 Delivery O2 Flow Rate FiO2 05/14/25 18:00 97.9 71 16 113/62 (79) 97 40 05/14/25 17:19 Mechanical Ventilator 05/11/25 09:42 20 Lab Results: 05/14/25 1710 05/14/25 171 Objective Vital Signs: As above, intuabted General: Normal body habitus, no acute distress. Skin: No rashes, lumps, ulcers, blisters, purpura or petechiae HEENT: Anicteric sclera, CYNDI Neck: Supple and nontender without enlargement of the thyroid, or lymphadenopathy. Chest: Normal size and shape, no tenderness, CTA bilaterally Heart: Regular. No jugular venous distention, S1 and S2 heard , no gallop Abdomen: Soft and non tender no organomegaly,BS+ Extremities: left leg very erythematous and warm. Neuro: Nonfocal. Coagulation Studies Laboratory Tests Test 05/06/25 19:39 05/06/25 23:16 05/07/25 07:25 Activated Partial Thromboplast Time 30 SECONDS (22-32) Prothrombin Time 12.4 SECONDS (9.0-12.0) H INR International Normalized Ratio 1.3 INR D-Dimer 1.32 MG/L FEU (0-0.50) H D-Dimer Comment APTT (Heparin Protocol) 50 SECONDS (45-75) Coagulation Comments Advance Care Planning Advanced Care plannin - 30 Minutes Problem\Assessment\Plan Problems/Diagnosis: (1) Hyperkalemia Assessment & Plan: resolved with the CVVH (2) Acute kidney injury Assessment & Plan: as above. contrast exposure, ischemic ATN in progress with hepatic failure most likely from sepsis. keep a close watch for any necrotizing fasciitis. switch to 4K bath in the CVVH (3) Wound cellulitis Assessment & Plan: closer monitoring of the wound and rule out any nec fasc. critically ill. needs CT of hte left leg when he stabilizes and comes donw on the PEEP (4) Acute respiratory failure Assessment & Plan: on ventilator. FiO2 is down to .45 trying to keep the negative balance going as tolerated with the CVVH (5) Septic shock Assessment & Plan: on multiple antibiotics. left leg cellulitis. awaiting CT of the LLE. Ok to use contrast to define the area well, as he is on CVVH. Sepsis Screening Skin Color: Normal TAYLER REID MD May 14, 2025 18:42
--- NOTE | 2025-05-14 19:00 | PROGRESS NOTE- Residence ---
Progress Note - Resident Providers to CC Resident Creating Document: AMPAROLIZETH FUNES ROXY, PARTHA ~ Antibiotic Timeout Antibiotic Ordered?: Yes Subjective Patient seen and examined today. Remained sedated and intubated. Held Levophed last night. Slowly coming down on PEEP as his FiO2 is 40%. Objective Vital Signs Date Time Temp Pulse Resp B/P (MAP) Pulse Ox O2 Delivery O2 Flow Rate FiO2 05/14/25 18:00 97.9 71 16 113/62 (79) 97 40 05/14/25 17:19 Mechanical Ventilator 05/11/25 09:42 20 Result Diagram: 05/14/25 1710 05/14/25 1710 General: Obese, Intubated and sedated HEENT: Conjunctiva pink, Sclera clear, Mucus Membranes moist. Neck: Supple without masses and tenderness. Resp: Coarse breath sounds bilaterally, no wheezing heard. Heart: Regular Rate and rhythm, normal S1 and S2 without murmur, rub or gallop. Abdomen: Soft and non tender no organomegaly Extremities: Left leg - erythematous, and less swollen with appearance of wrinkles. New blisters. No weepage. Skin: Warm and Dry. Coagulation Studies Laboratory Tests Test 05/06/25 19:39 05/06/25 23:16 05/07/25 07:25 Activated Partial Thromboplast Time 30 SECONDS (22-32) Prothrombin Time 12.4 SECONDS (9.0-12.0) H INR International Normalized Ratio 1.3 INR D-Dimer 1.32 MG/L FEU (0-0.50) H D-Dimer Comment APTT (Heparin Protocol) 50 SECONDS (45-75) Coagulation Comments Assessment Assessment The 44-year-old male was admitted for left lower extremity cellulitis. Had acute hypoxemic respiratory failure and required BiPAP and eventually intubated. Currently being managed in ICU Plan Plan Infectious diseases: Septic shock Left lower extremity cellulitis WBC and procalcitonin trending down Continue linezolid and cefepime. Wound cultures grew Proteus mirabilis, GAS, and Corynebacterium striatum. Continue wound care. Venous ultrasound lower extremity showed no evidence of DVT or thrombosis. Arterial ultrasound showed patent arteries. Off Levophed. Respiratory system: Acute hypoxemic respiratory failure ARDS Likely secondary to sepsis Untreated sleep apnea and possible pulmonary hypertension Currently intubated and sedated with fentanyl and midazolam On PRVC, FiO2 40%, PEEP 16. Coming down off PEEP, 2 units every 2 hours, if maintaining saturations above 90%. Cardiology: Septic shock Intermittent third-degree AV block, resolved Nonsustained V-tach Currently the patient is maintaining his heart rate in 70s. Cardiology is on board. Maintain potassium above four and magnesium above two. Nephrology: KEIRA likely secondary to vasomotor nephropathy Hyperkalemia, resolved Started CVVH on 05/10/2025 RFTs improving Fluid being taken off from this morning - Taking out 200 cc/hour negative fluid balance as tolerated and as per nephrology recommendations We will follow Nephrology recommendation 2K bath changed to 4K bath to maintain potassium more than four GI: Ischemic hepatitis LFTs trending down. Maintain MAP above 65. Continue monitoring. Nutrition: RD consulted. Started him on tube feeds Vital HP with Goal rate 90 mL/hour. Code Status: Full code DVT Prophylaxis: Lovenox Analgesia/Sedation: Fentanyl and Midazolam Lines/Tubes: Right IJ Robert, left IJ central line GI Prophylaxis: Protonix Nutrition: Vital HP Disposition: Prognosis remains guarded. Critical care time spent greater than 35 minutes. Lizeth Cano MD Internal Medicine Resident, PGY-2 The patient was seen, examined and discussed with the attending physician, Dr. Wu. The patient was seen, and case discussed during cash management coordinator rounds, at morning report and multidisciplinary rounds .Agree with above assessment Date of Service: May 14, 2025 Billing Provider: HÉCTOR WU MD,LIZETH RAMSEY, [facility] May 14, 2025 19:00 HÉCTOR WU MD May 15, 2025 10:20
[2025-05-14 23:42] LABS: CALCIUM CVVH 9.2 MG/DL (8.5-10.1); CREATININE 1.67 MG/DL (0.60-1.10); MEAN PLATELET VOLUME 8.2 FL (7.4-10.4); PHOSPHORUS 3.6 MG/DL (2.3-4.5); TOTAL CARBON DIOXIDE 27.5 MMOL/L (24-32); eGFR 45 ML/MIN
[2025-05-14 23:45] LABS: RED CELL DISTRIBUTION WIDTH 18.1 % (11.5-14.5)
[2025-05-15] VITALS (39 sets, daily range): BP systolic 115–165; BP diastolic 66–105; PULSE 66–96; RESP 12–25; O2SAT 89–99
[2025-05-15 01:18] LABS: ABG BASE EXCESS -2.4 mmol/L (-2.0-3.0); ABG HCO3 27.2 mmol/L (21.0-28.0); ABG OXYGEN SATURATION 88.0 % (94.0-98.0); ABG PCO2 (T) 66.8 mmHg (35.0-48.0); ABG PH (T) 7.221 (7.350-7.450); ABG PO2 (T) 52.0 mmHg (83.0-108.0); ALLEN'S TEST Modified; FCOHb 1.4 % (0.5-1.5); FHHb 11.8 % (0.0-5.0); FIO2 40.0 mmHg/%; FMetHb 0.1 % (0.0-1.5); FO2Hb 86.7 % (94.0-98.0); MODE VENT - APRVC; PATIENT TEMPERATURE 36.0; RESPIRATORY RATE 24 b/min; TIDAL VOLUME 400 mL; TOTAL HEMOGLOBIN 14.4 G/dl (13.5-17.5)
[2025-05-15] MEDS: FENTANYL-0.9 % NACL/PF 100 ML IV SCH (03:23)
[2025-05-15 05:32] LABS: CALCIUM CVVH 9.5 MG/DL (8.5-10.1); CREATININE 1.65 MG/DL (0.60-1.10); PHOSPHORUS 3.8 MG/DL (2.3-4.5); TOTAL CARBON DIOXIDE 28.1 MMOL/L (24-32); eGFR 45 ML/MIN
[2025-05-15 05:35] LABS: MEAN PLATELET VOLUME 7.9 FL (7.4-10.4); RED CELL DISTRIBUTION WIDTH 17.4 % (11.5-14.5)
[2025-05-15] MEDS ORDERED: fentaNYL/PF inj 2,500 MCG in normal saline 250ml IV soln 200 ML IV SCH ×2 (06:05→09:00)
--- NOTE | 2025-05-15 06:09 | RADIOLOGY REPORT ---
CHEST RADIOGRAPH Indication: ET Tube PLacement Technique: Single frontal view of the chest was obtained COMPARISON: DI CHEST,SINGLE VIEW on DOS: 05/14/25, DI CHEST,SINGLE VIEW on DOS: 05/13/25, DI CHEST,SINGLE VIEW on DOS: 05/12/25, DI CHEST,SINGLE VIEW on DOS: 05/11/25, DI CHEST,SINGLE VIEW on DOS: 05/10/25 FINDINGS: Lines and Tubes: Endotracheal tube, enteric catheter, right central venous catheter in satisfactory position. Left central venous catheter overlies the course of the brachiocephalic vein, unchanged. Clinical correlation advised. Lungs: Unchanged multifocal airspace disease. Pleura: No effusion.No pneumothorax. Cardiomediastinal contours: Unchanged cardiomegaly. Bones: Unremarkable IMPRESSION: No significant interval change.
[2025-05-15] MEDS: fentaNYL/PF inj 2,500 MCG in normal saline 250ml IV soln 200 ML IV SCH (06:40)
[2025-05-15 08:49] LABS: ABG PCO2 (T) 74.9 mmHg (35.0-48.0); ABG PH (T) 7.178 (7.350-7.450); ALLEN'S TEST Modified; FIO2 40.0 mmHg/%; MODE VENT - prvc; PATIENT TEMPERATURE 36.1; PEEP 12 cm H2O; RESPIRATORY RATE 24 b/min; TIDAL VOLUME 400 mL
[2025-05-15 08:50] LABS: ABG BASE EXCESS -3.2 mmol/L (-2.0-3.0); ABG HCO3 27.5 mmol/L (21.0-28.0); ABG OXYGEN SATURATION 92.2 % (94.0-98.0); ABG PO2 (T) 64.1 mmHg (83.0-108.0); FCOHb 1.3 % (0.5-1.5); FHHb 7.7 % (0.0-5.0); FMetHb 0.2 % (0.0-1.5); FO2Hb 90.8 % (94.0-98.0); TOTAL HEMOGLOBIN 14.9 G/dl (13.5-17.5)
--- NOTE | 2025-05-15 09:44 | PROGRESS NOTE ---
Progress Note Dictate Providers to CC ~ Central Line/PICC still needed: Yes Central Line/PICC Necessity: Req HD/Plasmapheresis Andersen Indications Met/Not Met: F/C Indications Met Antibiotic Ordered?: Yes Subjective Subjective excellent diuresis on CVVH over the last 4-5 days. fiO2 is down to 40%. PEEP: has cellulitis left lower extremity with erythema persistent. venous and arterial dopplers were ok without DVT or ischemia. CT of the LE was also done on 05/06. remains on yazan ventilator. Objective Vitals Vital Signs Date Time Temp Pulse Resp B/P (MAP) Pulse Ox O2 Delivery O2 Flow Rate FiO2 05/15/25 09:16 25 40 05/15/25 09:00 97.0 80 126/74 (91) 96 Mechanical Ventilator 05/11/25 09:42 20 Lab Results: 05/15/25 0507 05/15/25 0507 Objective Vital Signs: As above, intuabted General: Normal body habitus, no acute distress. Skin: No rashes, lumps, ulcers, blisters, purpura or petechiae HEENT: Anicteric sclera, CYNDI Neck: Supple and nontender without enlargement of the thyroid, or lymphadenopathy. Chest: Normal size and shape, no tenderness, CTA bilaterally Heart: Regular. No jugular venous distention, S1 and S2 heard , no gallop Abdomen: Soft and non tender no organomegaly,BS+ Extremities: left leg very erythematous and warm. Neuro: Nonfocal. Coagulation Studies Laboratory Tests Test 05/06/25 19:39 05/06/25 23:16 05/07/25 07:25 Activated Partial Thromboplast Time 30 SECONDS (22-32) Prothrombin Time 12.4 SECONDS (9.0-12.0) H INR International Normalized Ratio 1.3 INR D-Dimer 1.32 MG/L FEU (0-0.50) H D-Dimer Comment APTT (Heparin Protocol) 50 SECONDS (45-75) Coagulation Comments Advance Care Planning Advanced Care plannin - 30 Minutes Problem\Assessment\Plan Problems/Diagnosis: (1) Hyperkalemia Assessment & Plan: resolved with the CVVH (2) Acute kidney injury Assessment & Plan: as above. contrast exposure, ischemic ATN in progress with hepatic failure most likely from sepsis. keep a close watch for any necrotizing fasciitis. switch to 4K bath in the CVVH (3) Wound cellulitis Assessment & Plan: closer monitoring of the wound and rule out any nec fasc. critically ill. weaning from the ventilator is in slow progress (4) Acute respiratory failure Assessment & Plan: on ventilator. FiO2 is down to .45 trying to keep the negative balance going as tolerated with the CVVH (5) Septic shock Assessment & Plan: on multiple antibiotics. left leg cellulitis. awaiting CT of the LLE. Ok to use contrast to define the area well, as he is on CVVH. Sepsis Screening Skin Color: Normal TAYLER REID MD May 15, 2025 09:44
[2025-05-15 10:13] LABS: ABG BASE EXCESS -3.1 mmol/L (-2.0-3.0); ABG HCO3 25.8 mmol/L (21.0-28.0); ABG OXYGEN SATURATION 95.1 % (94.0-98.0); ABG PCO2 (T) 60.7 mmHg (35.0-48.0); ABG PH (T) 7.241 (7.350-7.450); ABG PO2 (T) 72.2 mmHg (83.0-108.0); ALLEN'S TEST Modified; FCOHb 1.2 % (0.5-1.5); FHHb 4.8 % (0.0-5.0); FIO2 40.0 mmHg/%; FMetHb 0.1 % (0.0-1.5); FO2Hb 93.9 % (94.0-98.0); MODE VENT - prvc; PATIENT TEMPERATURE 36.2; PEEP 12 cm H2O; RESPIRATORY RATE 24 b/min; TIDAL VOLUME 450 mL; TOTAL HEMOGLOBIN 14.5 G/dl (13.5-17.5)
[2025-05-15 11:33] LABS: MEAN PLATELET VOLUME 7.8 FL (7.4-10.4); RED CELL DISTRIBUTION WIDTH 18.3 % (11.5-14.5)
[2025-05-15 11:39] LABS: CALCIUM CVVH 9.4 MG/DL (8.5-10.1); CREATININE 1.65 MG/DL (0.60-1.10); PHOSPHORUS 3.6 MG/DL (2.3-4.5); TOTAL CARBON DIOXIDE 26.6 MMOL/L (24-32); eGFR 45 ML/MIN
--- NOTE | 2025-05-15 13:03 | PROGRESS NOTE- Residence ---
Progress Note - Resident Providers to CC Resident Creating Document: LIZETH RIVERA ROXY, PARTHA ~ Antibiotic Timeout Antibiotic Ordered?: Yes Subjective Patient seen and examined today. Still intubated and mechanically ventilated on 40% FiO2 and PEEP of 12. He was at PEEP of 10 when he desaturated therefore we had to increase it back to 12. He is still on CVVH. Objective Vital Signs Date Time Temp Pulse Resp B/P (MAP) Pulse Ox O2 Delivery O2 Flow Rate FiO2 05/15/25 11:09 24 40 05/15/25 11:00 97.5 67 115/82 (93) 93 Mechanical Ventilator 05/11/25 09:42 20 Result Diagram: 05/15/25 1115 05/15/25 1115 General: Obese, Intubated and sedated HEENT: Conjunctiva pink, Sclera clear, Mucus Membranes moist. Neck: Supple without masses and tenderness. Resp: Coarse breath sounds bilaterally, no wheezing heard. Heart: Regular Rate and rhythm, normal S1 and S2 without murmur, rub or gallop. Abdomen: Soft and non tender no organomegaly Extremities: Left leg - erythematous, and less swollen with appearance of wrinkles. New blisters. No weepage. Skin: Warm and Dry. Coagulation Studies Laboratory Tests Test 05/06/25 19:39 05/06/25 23:16 05/07/25 07:25 Activated Partial Thromboplast Time 30 SECONDS (22-32) Prothrombin Time 12.4 SECONDS (9.0-12.0) H INR International Normalized Ratio 1.3 INR D-Dimer 1.32 MG/L FEU (0-0.50) H D-Dimer Comment APTT (Heparin Protocol) 50 SECONDS (45-75) Coagulation Comments Assessment Assessment The 44-year-old male was admitted for left lower extremity cellulitis. Had acute hypoxemic respiratory failure and required BiPAP and eventually intubated. Currently being managed in ICU Plan Plan Infectious diseases: Septic shock Left lower extremity cellulitis WBC trending what procalcitonin trending down Continue linezolid and cefepime. Wound cultures grew Proteus mirabilis, GAS, and Corynebacterium striatum. Continue wound care. Venous ultrasound lower extremity showed no evidence of DVT or thrombosis. Arterial ultrasound showed patent arteries. Off Levophed. Respiratory system: Acute hypoxemic respiratory failure ARDS Likely secondary to sepsis Untreated sleep apnea and possible pulmonary hypertension Currently intubated and sedated with fentanyl. Off midazolam. On PRVC, FiO2 40%, PEEP 12. Maintain PEEP of 12 for today, and if he maintains his saturations we will turn it down tomorrow. Cardiology: Septic shock Intermittent third-degree AV block, resolved Nonsustained V-tach Currently the patient is maintaining his heart rate in 70s. Cardiology is on board. Maintain potassium above four and magnesium above two. Nephrology: KEIRA likely secondary to vasomotor nephropathy Hyperkalemia, resolved Started CVVH on 05/10/2025 RFTs improving Fluid being taken off from this morning - Taking out 200 cc/hour negative fluid balance as tolerated and as per nephrology recommendations We will follow Nephrology recommendation 2K bath changed to 4K bath to maintain potassium more than four GI: Ischemic hepatitis LFTs trending down. Maintain MAP above 65. Continue monitoring. Nutrition: RD consulted. Started him on tube feeds Vital HP with Goal rate 90 mL/hour. Code Status: Full code DVT Prophylaxis: Lovenox Analgesia/Sedation: Fentanyl Lines/Tubes: Right IJ Robert, left IJ central line GI Prophylaxis: Protonix Nutrition: Vital HP Disposition: Prognosis remains guarded. Critical care time spent greater than 35 minutes. Lizeth Rivera MD Internal Medicine Resident, PGY-2 The patient was seen, examined and discussed with the attending physician, Dr. Thomas. Patient is seen and examined with resident. I agree with the above assessment and plan. Date of Service: May 15, 2025 Billing Provider: HÉCTOR THOMAS MD, SOWMYA MANJARI, RES May 15, 2025 13:03 HÉCTOR THOMAS MD May 16, 2025 11:50
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
[2025-05-15 17:39] LABS: MEAN PLATELET VOLUME 7.6 FL (7.4-10.4); RED CELL DISTRIBUTION WIDTH 18.4 % (11.5-14.5)
[2025-05-15 17:46] LABS: CALCIUM CVVH 9.5 MG/DL (8.5-10.1); CREATININE 1.68 MG/DL (0.60-1.10); PHOSPHORUS 3.6 MG/DL (2.3-4.5); TOTAL CARBON DIOXIDE 26.8 MMOL/L (24-32); eGFR 44 ML/MIN
[2025-05-15 17:54] LABS: BANDS% (MANUAL) 5.0 % (0-10); EOSINOPHILS % (MANUAL) 2.0 % (0-6); LYMPHOCYTES % (MANUAL) 6.0 % (21-51); METAMYLEOCYTES% (MANUAL) 2.0 % (0-0); MONOCYTES % (MANUAL) 7.0 % (2-12); NEUTROPHILS % (MANUAL) 78.0 % (42-75); NUCLEATED RED BLOOD CELLS 1 /100WBC (0-0); PLATELET ESTIMATE NORMAL
[2025-05-15 20:34] LABS: CREATININE 1.69 MG/DL (0.60-1.10); PHOSPHORUS 3.6 MG/DL (2.3-4.5); TOTAL CARBON DIOXIDE 24.7 MMOL/L (24-32); eCRCL 66 ML/MIN; eGFR 44 ML/MIN
[2025-05-15 23:41] LABS: CALCIUM CVVH 9.5 MG/DL (8.5-10.1); CREATININE 1.74 MG/DL (0.60-1.10); PHOSPHORUS 3.8 MG/DL (2.3-4.5); TOTAL CARBON DIOXIDE 26.5 MMOL/L (24-32); eGFR 43 ML/MIN
[2025-05-16] VITALS (37 sets, daily range): BP systolic 115–142; BP diastolic 68–95; PULSE 73–90; RESP 21–25; TEMP 98.8–99; O2SAT 92–97
[2025-05-16 00:13] LABS: MEAN PLATELET VOLUME 7.8 FL (7.4-10.4); RED CELL DISTRIBUTION WIDTH 18.1 % (11.5-14.5)
[2025-05-16 03:47] LABS: ABG BASE EXCESS -6.2 mmol/L (-2.0-3.0); ABG HCO3 22.9 mmol/L (21.0-28.0); ABG OXYGEN SATURATION 96.0 % (94.0-98.0); ABG PCO2 (T) 60.2 mmHg (35.0-48.0); ABG PH (T) 7.198 (7.350-7.450); ABG PO2 (T) 85.3 mmHg (83.0-108.0); ALLEN'S TEST Modified; FCOHb 1.1 % (0.5-1.5); FHHb 4.0 % (0.0-5.0); FIO2 50.0 mmHg/%; FMetHb 0.0 % (0.0-1.5); FO2Hb 94.9 % (94.0-98.0); MODE VENT - PRVC; PATIENT TEMPERATURE 37.0; PEEP 12 cm H2O; RESPIRATORY RATE 24 b/min; TIDAL VOLUME 450 mL; TOTAL HEMOGLOBIN 15.5 G/dl (13.5-17.5)
[2025-05-16 05:44] LABS: CREATININE 1.95 MG/DL (0.60-1.10); MEAN PLATELET VOLUME 7.9 FL (7.4-10.4); PHOSPHORUS 4.7 MG/DL (2.3-4.5); RED CELL DISTRIBUTION WIDTH 17.5 % (11.5-14.5); TOTAL CARBON DIOXIDE 26.7 MMOL/L (24-32); eCRCL 57 ML/MIN; eGFR 37 ML/MIN
[2025-05-16 06:23] LABS: BANDS% (MANUAL) 8.0 % (0-10); LYMPHOCYTES % (MANUAL) 4.0 % (21-51); METAMYLEOCYTES% (MANUAL) 1.0 % (0-0); MONOCYTES % (MANUAL) 1.0 % (2-12); NEUTROPHILS % (MANUAL) 86.0 % (42-75); PLATELET ESTIMATE NORMAL
--- NOTE | 2025-05-16 06:57 | RADIOLOGY REPORT ---
CHEST RADIOGRAPH INDICATION: ET Tube PLacement TECHNIQUE: Single frontal view of the chest was obtained COMPARISON: DI CHEST,SINGLE VIEW on DOS: 05/15/25, DI CHEST,SINGLE VIEW on DOS: 05/14/25, DI CHEST,SINGLE VIEW on DOS: 05/13/25, DI CHEST,SINGLE VIEW on DOS: 05/12/25, DI CHEST,SINGLE VIEW on DOS: 05/11/25, DI CHEST,SINGLE VIEW on DOS: 05/15/25 FINDINGS: Lines and Tubes: Endotracheal tube, enteric catheter, right central venous catheter in satisfactory position. Left central venous catheter overlies the course of the brachiocephalic vein, unchanged. Clinical correlation advised. Lungs: Unchanged multifocal airspace disease. Pleura: No effusion.No pneumothorax. Cardiomediastinal contours: Unchanged cardiomegaly. Bones: Unremarkable IMPRESSION: 1. No significant interval change.
[2025-05-16 08:08] LABS: ABG BASE EXCESS -3.3 mmol/L (-2.0-3.0); ABG HCO3 25.2 mmol/L (21.0-28.0); ABG OXYGEN SATURATION 96.3 % (94.0-98.0); ABG PCO2 (T) 60.9 mmHg (35.0-48.0); ABG PH (T) 7.237 (7.350-7.450); ABG PO2 (T) 84.6 mmHg (83.0-108.0); ALLEN'S TEST POSITIVE; FCOHb 1.0 % (0.5-1.5); FHHb 3.7 % (0.0-5.0); FIO2 50.0 mmHg/%; FMetHb 0.1 % (0.0-1.5); FO2Hb 95.2 % (94.0-98.0); MODE VENT - AC/PRVC; PATIENT TEMPERATURE 37.5; PEEP 12 cm H2O; RESPIRATORY RATE 24 b/min; TIDAL VOLUME 475 mL; TOTAL HEMOGLOBIN 15.4 G/dl (13.5-17.5)
[2025-05-16 11:02] LABS: MEAN PLATELET VOLUME 7.6 FL (7.4-10.4); RED CELL DISTRIBUTION WIDTH 18.7 % (11.5-14.5)
[2025-05-16 11:17] LABS: CREATININE 2.05 MG/DL (0.60-1.10); PHOSPHORUS 4.5 MG/DL (2.3-4.5); TOTAL CARBON DIOXIDE 26.3 MMOL/L (24-32); eCRCL 54 ML/MIN; eGFR 35 ML/MIN
--- NOTE | 2025-05-16 11:45 | PROGRESS NOTE ---
Progress Note Dictate Providers to CC ~ Central Line/PICC still needed: Yes Central Line/PICC Necessity: Req HD/Plasmapheresis Andersen Indications Met/Not Met: F/C Indications Met Antibiotic Ordered?: Yes Subjective Subjective quite a lot of ultrafiltration over the the last few days. yet fiO2 is at 50% Objective Vitals Vital Signs Date Time Temp Pulse Resp B/P (MAP) Pulse Ox O2 Delivery O2 Flow Rate FiO2 05/16/25 10:56 24 50 05/16/25 10:55 99.0 80 132/81 (98) 94 Mechanical Ventilator 05/16/25 08:00 20.0 Lab Results: 05/16/25 1050 05/16/25 1050 Objective Vital Signs: As above, intuabted General: Normal body habitus, no acute distress. Skin: No rashes, lumps, ulcers, blisters, purpura or petechiae HEENT: Anicteric sclera, CYNDI Neck: Supple and nontender without enlargement of the thyroid, or lymphadenopathy. Chest: Normal size and shape, no tenderness, CTA bilaterally Heart: Regular. No jugular venous distention, S1 and S2 heard , no gallop Abdomen: Soft and non tender no organomegaly,BS+ Extremities: left leg very erythematous and warm. Neuro: Nonfocal. Coagulation Studies Laboratory Tests Test 05/06/25 19:39 05/06/25 23:16 05/07/25 07:25 Activated Partial Thromboplast Time 30 SECONDS (22-32) Prothrombin Time 12.4 SECONDS (9.0-12.0) H INR International Normalized Ratio 1.3 INR D-Dimer 1.32 MG/L FEU (0-0.50) H D-Dimer Comment APTT (Heparin Protocol) 50 SECONDS (45-75) Coagulation Comments Advance Care Planning Advanced Care plannin - 30 Minutes Problem\Assessment\Plan Problems/Diagnosis: (1) Hyperkalemia Assessment & Plan: slowly trending up with CVVH. will temporarily switch to 2K bath (2) Acute kidney injury Assessment & Plan: as above. contrast exposure, ischemic ATN in progress with hepatic failure most likely from sepsis. switch to 2K bath in the CVVH (3) Wound cellulitis Assessment & Plan: closer monitoring of the wound and rule out any nec fasc. critically ill. weaning from the ventilator is in slow progress (4) Acute respiratory failure Assessment & Plan: on ventilator. FiO2 is down to .5 trying to keep the negative balance going as tolerated with the CVVH (5) Septic shock Assessment & Plan: on multiple antibiotics. left leg cellulitis. awaiting CT of the LLE. Ok to use contrast to define the area well, as he is on CVVH. Sepsis Screening Skin Color: Normal TAYLER REID MD May 16, 2025 11:45
--- NOTE | 2025-05-16 11:56 | PROGRESS NOTE ---
Subjective Subjective Patient seen and examined today. Remains intubated and mechanically ventilated on 50% FiO2 and PEEP of 12. He is still on CVVH. Reason for visit: Pulmonary critical care follow-up Reviewed: Care Plan, H&P, Labs, Radiology Review of Systems Changes from previous H/P or p: No Changes Daily Progress Note Exam Vitals Vital Signs Date Time Temp Pulse Resp B/P (MAP) Pulse Ox O2 Delivery O2 Flow Rate FiO2 05/16/25 11:42 98.8 84 22 131/74 (93) 95 Mechanical Ventilator 40 05/16/25 08:00 20.0 Result Diagram: 05/16/25 1050 05/16/25 1050 Exam General: Obese, Intubated and sedated HEENT: Conjunctiva pink, Sclera clear, Mucus Membranes moist. Neck: Supple without masses and tenderness. Resp: Coarse breath sounds bilaterally, no wheezing heard. Heart: Regular Rate and rhythm, normal S1 and S2 without murmur, rub or gallop. Abdomen: Soft and non tender no organomegaly Extremities: Left leg - erythematous, and less swollen with appearance of wrinkles. New blisters. No weepage. Skin: Warm and Dry. Results Coagulation Studies Laboratory Tests Test 05/06/25 19:39 05/06/25 23:16 05/07/25 07:25 Activated Partial Thromboplast Time 30 SECONDS (22-32) Prothrombin Time 12.4 SECONDS (9.0-12.0) H INR International Normalized Ratio 1.3 INR D-Dimer 1.32 MG/L FEU (0-0.50) H D-Dimer Comment APTT (Heparin Protocol) 50 SECONDS (45-75) Coagulation Comments VTE VTE Risk Score VTE Risk Score Reference Ranges: Score 0-1 = Low Risk (Aggressive mobilization; early ambulation; no VTE prophylaxis required) Score 2: Moderate Risk (Intermittent/Pneumatic Compression Device OR Lovenox/Heparin/Coumadin) Score 3-4: High Risk (Intermittent/Pneumatic Compression Device AND Lovenox/Heparin/Coumadin) Score > or = 5: Highest Risk (Intermittent/Pneumatic Compression Device AND Lovenox/Heparin/Coumadin) Assessment/Plan Assessment The 44-year-old male was admitted for left lower extremity cellulitis. Had acute hypoxemic respiratory failure and required BiPAP and eventually intubated. Currently being managed in ICU Plan Infectious diseases: Septic shock Left lower extremity cellulitis WBC trending what procalcitonin trending down Continue linezolid and cefepime. Wound cultures grew Proteus mirabilis, GAS, and Corynebacterium striatum. Continue wound care. Venous ultrasound lower extremity showed no evidence of DVT or thrombosis. Arterial ultrasound showed patent arteries. Off Levophed. Respiratory system: Acute hypoxemic respiratory failure ARDS: Lung compliance improved with fluid removal. Likely secondary to sepsis Untreated sleep apnea and possible pulmonary hypertension Currently intubated and sedated with fentanyl 275 mcg an hour. Back on midazolam 2 mg an hour. On PRVC, FiO2 50%, PEEP 12. Maintain PEEP of 12 for today, and if he maintains his saturations we will turn it down tomorrow. Cardiology: Septic shock Intermittent third-degree AV block, resolved Nonsustained V-tach Currently the patient is maintaining his heart rate in 70s. Cardiology is on board. Maintain potassium above four and magnesium above two. Nephrology: KEIRA likely secondary to vasomotor nephropathy Hyperkalemia, resolved Started CVVH on 05/10/2025 RFTs improving Fluid being taken off from this morning - Taking out 200 cc/hour negative fluid balance as tolerated and as per nephrology recommendations We will follow Nephrology recommendation 2K bath changed to 4K bath to maintain potassium more than four GI: Ischemic hepatitis LFTs trending down. Maintain MAP above 65. Continue monitoring. Nutrition: RD consulted. Started him on tube feeds Vital HP with Goal rate 90 mL/hour. Code Status: Full code DVT Prophylaxis: Lovenox Analgesia/Sedation: Fentanyl Lines/Tubes: Right IJ Robert, left IJ central line GI Prophylaxis: Protonix Nutrition: Vital HP Disposition: Prognosis remains guarded. Critical care time spent greater than 35 minutes. Expected Outcome/Goals Expected Outcomes/Goals: Tolerance to TF, wt maintenance, bowel regularity, wound healing HÉCTOR THOMAS MD May 16, 2025 11:56
[2025-05-16] MEDS: bicarb dialysis sol 2K+/3 Ca2+ 5,000 ML HE SCH (12:10)
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
[2025-05-16 17:11] LABS: MEAN PLATELET VOLUME 8.2 FL (7.4-10.4); RED CELL DISTRIBUTION WIDTH 19.3 % (11.5-14.5)
[2025-05-16 17:24] LABS: CREATININE 2.11 MG/DL (0.60-1.10); PHOSPHORUS 4.8 MG/DL (2.3-4.5); TOTAL CARBON DIOXIDE 25.3 MMOL/L (24-32); eCRCL 53 ML/MIN; eGFR 34 ML/MIN
[2025-05-16] MEDS: HEPARIN DRIP INITAL BOLUS --- DO NOT GIVE/ORDER MC ONE ×2 (20:18→20:19)
[2025-05-16] MEDS: heparin 25,000 UNIT/250ml bag 250 ML IV PRN (20:24)
[2025-05-16 20:32] LABS: APTT 31 SECONDS (22-32); INR 1.2 INR
[2025-05-16] MEDS: MESSAGE TO NURSING IV ONE (20:35)
--- NOTE | 2025-05-16 21:53 | PROGRESS NOTE ---
Progress Note Dictate Providers to CC ~ Progress Note: 44 year old admitted with septic shock and respiratory failure now with renal failure remains intubated and sedated. Antibiotic Ordered?: Yes Objective Vitals Vital Signs Date Time Temp Pulse Resp B/P (MAP) Pulse Ox O2 Delivery O2 Flow Rate FiO2 05/16/25 21:04 81 24 95 50 05/16/25 18:16 99.0 132/84 (100) Mechanical Ventilator 05/16/25 08:00 20.0 Lab Results: 05/16/25 1700 05/16/25 1700 Coagulation Studies Laboratory Tests Test 05/06/25 23:16 05/07/25 07:25 05/16/25 19:55 D-Dimer 1.32 MG/L FEU (0-0.50) H D-Dimer Comment APTT (Heparin Protocol) 50 SECONDS (45-75) Prothrombin Time 12.4 SECONDS (9.0-12.0) H INR International Normalized Ratio 1.2 INR Activated Partial Thromboplast Time 31 SECONDS (22-32) Coagulation Comments Problem\Assessment\Plan Additional Plan Plan: Daily SAT continue abx follow final cultures CVVHD per renal CCT 60 min using HIPPA compliant A/V technology Sepsis Screening Skin Color: Normal BERNARDINO TAMAYO MD May 16, 2025 21:53
[2025-05-16 23:16] LABS: MEAN PLATELET VOLUME 8.1 FL (7.4-10.4); RED CELL DISTRIBUTION WIDTH 18.6 % (11.5-14.5)
[2025-05-16 23:25] LABS: CREATININE 2.24 MG/DL (0.60-1.10); PHOSPHORUS 4.9 MG/DL (2.3-4.5); TOTAL CARBON DIOXIDE 24.9 MMOL/L (24-32); eCRCL 50 ML/MIN; eGFR 32 ML/MIN
[2025-05-17] VITALS (35 sets, daily range): BP systolic 102–143; BP diastolic 57–90; PULSE 85–101; RESP 13–28; O2SAT 5–97
[2025-05-17 02:23] LABS: APTT 43 SECONDS (22-32)
[2025-05-17] MEDS: heparin 10,000 units/1 ML INJ IV PRN (02:36)
[2025-05-17 03:21] LABS: ABG BASE EXCESS -4.3 mmol/L (-2.0-3.0); ABG HCO3 23.9 mmol/L (21.0-28.0); ABG OXYGEN SATURATION 98.9 % (94.0-98.0); ABG PCO2 (T) 56.5 mmHg (35.0-48.0); ABG PH (T) 7.247 (7.350-7.450); ABG PO2 (T) 129.3 mmHg (83.0-108.0); ALLEN'S TEST Modified; FCOHb 1.3 % (0.5-1.5); FHHb 1.1 % (0.0-5.0); FIO2 50.0 mmHg/%; FMetHb 0.0 % (0.0-1.5); FO2Hb 97.6 % (94.0-98.0); MODE VENT - PRVC; PATIENT TEMPERATURE 37.6; PEEP 12 cm H2O; RESPIRATORY RATE 24 b/min; TIDAL VOLUME 475 mL; TOTAL HEMOGLOBIN 17.0 G/dl (13.5-17.5)
[2025-05-17 05:24] LABS: MEAN PLATELET VOLUME 8.1 FL (7.4-10.4); RED CELL DISTRIBUTION WIDTH 19.0 % (11.5-14.5)
[2025-05-17 05:36] LABS: CREATININE 2.38 MG/DL (0.60-1.10); PHOSPHORUS 5.5 MG/DL (2.3-4.5); TOTAL CARBON DIOXIDE 27.3 MMOL/L (24-32); eCRCL 47 ML/MIN; eGFR 30 ML/MIN
--- NOTE | 2025-05-17 06:30 | PROGRESS NOTE ---
Progress Note Dictate Providers to CC ~ Central Line/PICC still needed: Yes Central Line/PICC Necessity: Req HD/Plasmapheresis Andersen Indications Met/Not Met: F/C Indications Met Antibiotic Ordered?: Yes Subjective Subjective It is extremely concerning that the wbc count has not improved over the past few days. I am ready to give a break from CVVH to facilitate any imaging that may be planning to rule out other foci of infection. Meanwhile, will instill tpa to the cath and use heparin with dialysis tomorrow. patient remains on the ventialtor. iD consult veyr much recommended and I believe it has been called. Objective Vitals Vital Signs Date Time Temp Pulse Resp B/P (MAP) Pulse Ox O2 Delivery O2 Flow Rate FiO2 05/17/25 19:14 91 24 96 55 05/17/25 19:00 99.5 113/59 (77) Mechanical Ventilator 05/17/25 08:00 20.0 Lab Results: 05/17/25 1530 05/17/25 1530 Objective Vital Signs: As above, intuabted General: Normal body habitus, no acute distress. Skin: No rashes, lumps, ulcers, blisters, purpura or petechiae HEENT: Anicteric sclera, CYNDI Neck: Supple and nontender without enlargement of the thyroid, or lymphadenopathy. Chest: Normal size and shape, no tenderness, CTA bilaterally Heart: Regular. No jugular venous distention, S1 and S2 heard , no gallop Abdomen: Soft and non tender no organomegaly,BS+ Extremities: left leg very erythematous and warm. Neuro: Nonfocal. Coagulation Studies Laboratory Tests Test 05/06/25 23:16 05/16/25 19:55 05/17/25 02:00 05/17/25 07:55 D-Dimer 1.32 MG/L FEU (0-0.50) H D-Dimer Comment Prothrombin Time 12.4 SECONDS (9.0-12.0) H INR International Normalized Ratio 1.2 INR Activated Partial Thromboplast Time 43 SECONDS (22-32) H APTT (Heparin Protocol) 61 SECONDS (45-75) Coagulation Comments Advance Care Planning Advanced Care plannin - 30 Minutes Problem\Assessment\Plan Problems/Diagnosis: (1) Hyperkalemia Assessment & Plan: slowly trending up with CVVH. cvvh stopped. will give lokelma tonight and get him started on hd early hours tomorrow. orders placed. (2) Acute kidney injury Assessment & Plan: as above. contrast exposure, ischemic ATN in progress with hepatic failure most likely from sepsis. CVVh stopped. (3) Wound cellulitis Assessment & Plan: closer monitoring of the wound and rule out any nec fasc. critically ill. weaning from the ventilator is in slow progress (4) Acute respiratory failure Assessment & Plan: on ventilator. FiO2 is down to .5 trying to keep the negative balance going as tolerated with the CVVH (5) Septic shock Assessment & Plan: on multiple antibiotics. left leg cellulitis. awaiting CT of the LLE. Ok to use contrast Sepsis Screening Skin Color: Normal TAYLER REID MD May 17, 2025 06:30
[2025-05-17] MEDS: heparin 1,000 units/ml 10ml inj HE ONE ×2 (06:51)
--- NOTE | 2025-05-17 07:20 | RADIOLOGY REPORT ---
CHEST RADIOGRAPH INDICATION: ET Tube PLacement TECHNIQUE: Single frontal view of the chest was obtained COMPARISON: DI CHEST,SINGLE VIEW on DOS: 05/16/25 FINDINGS: Lines and Tubes: The endotracheal tube terminates 7.2 cm above the [place]. Right central venous catheter terminates in the superior vena cava. Left central venous catheter terminates in the superior vena cava. The enteric tube courses below the left hemidiaphragm and the tip extends outside the field of view. Lungs: No focal consolidation. Pleura: Multifocal airspace disease noted. No pneumothorax. Cardiomediastinal contours: Unremarkable Bones: No acute osseous abnormality. IMPRESSION: 1. Support tubes in appropriate position. 2. Multifocal airspace disease.
[2025-05-17 08:50] LABS: BANDS% (MANUAL) 1.0 % (0-10); LARGE PLATELETS FEW; LYMPHOCYTES % (MANUAL) 5.0 % (21-51); METAMYLEOCYTES% (MANUAL) 6.0 % (0-0); MONOCYTES % (MANUAL) 3.0 % (2-12); NEUTROPHILS % (MANUAL) 85.0 % (42-75); PLATELET ESTIMATE NORMAL
[2025-05-17] MEDS: MESSAGE TO NURSING IV ONE (09:01)
[2025-05-17] MEDS: heparin, porcine 5000 units/ml vial SQ SCH (12:22)
--- NOTE | 2025-05-17 14:38 | PROGRESS NOTE- Residence ---
Progress Note - Resident Providers to CC Resident Creating Document: JOSÉ LUIS OKEEFE RES ~ Antibiotic Timeout Antibiotic Ordered?: Yes Subjective Patient seen and examined at the bedside today. The patient continues to be sedated and mechanically ventilated. His CVVH he is currently held there was suspicion of clotting last night. We will further re-evaluate and restart CVVH as the patient continues to not have significant urinary output. Objective Vital Signs Date Time Temp Pulse Resp B/P (MAP) Pulse Ox O2 Delivery O2 Flow Rate FiO2 05/17/25 14:00 100.0 92 26 124/67 (86) 96 Mechanical Ventilator 50 05/17/25 08:00 20.0 Result Diagram: 05/17/25 0505 05/17/25 0505 General: Obese, Intubated and sedated HEENT: Conjunctiva pink, Sclera clear, Mucus Membranes moist. Neck: Supple without masses and tenderness. Resp: Coarse breath sounds bilaterally, no wheezing heard. Heart: Regular Rate and rhythm, normal S1 and S2 without murmur, rub or gallop. Abdomen: Soft and non tender no organomegaly Extremities: Left leg - erythema and swelling improved. Blisters present. Skin: Warm and Dry. Coagulation Studies Laboratory Tests Test 05/06/25 23:16 05/16/25 19:55 05/17/25 02:00 05/17/25 07:55 D-Dimer 1.32 MG/L FEU (0-0.50) H D-Dimer Comment Prothrombin Time 12.4 SECONDS (9.0-12.0) H INR International Normalized Ratio 1.2 INR Activated Partial Thromboplast Time 43 SECONDS (22-32) H APTT (Heparin Protocol) 61 SECONDS (45-75) Coagulation Comments Assessment Assessment 44-year-old male is admitted in the ICU for acute hypoxemic respiratory failure requiring intubation and mechanical ventilation secondary to septic shock from cellulitis of the lower extremity. Plan Plan Nephrology progress note: KEIRA The patient's KEIRA is most likely secondary to ischemic acute tubular necrosis due to septic shock. Contrast exposure and also cause worsening of the patient's kidney injury. The patient was started on CVVH with a 2K bath in view of the patient's hyperkalemia. CVVH on hold since morning view of suspicion of clotting of the patient's line. We will restart the patient back on CVVH versus intermittent hemodialysis as the patient is still not bruising adequate amount of urine. The patient's urine output over the last 24 hours is noted to be 0.01 mL/kg per hour. Continue strict input and output monitoring. Continue monitoring renal function test. Hyperkalemia Controlled with the CVVH-2K bath. Continue monitoring patient's electrolytes. Left lower extremity cellulitis Septic shock Patient continues to have significantly elevated WBC count of 27.8. His antibiotics were adjusted as per the cultural report-linezolid and cefepime. Might benefit from Infectious Disease specialist consultation. Weaned off of pressors. Acute hypoxemic respiratory failure ARDS Possible underlying pulmonary hypertension Continues to be intubated and mechanically ventilated. Patient was on CVVH and was maintain a negative fluid balance. Currently CVVH on hold. Continue management as per the clinical manager. Ischemic hepatitis Intermittent third-degree AV block Nonsustained V-tach Continue management as per the clinical manager. CODE STATUS: Full code DVT prophylaxis: Lovenox GI prophylaxis: Protonix Diet: Warehouse Assistant on board. Vital HP. Disposition: Continue management as per the clinical manager. We will re-evaluate as the patient on CVVH has a patient continues to not make good amount of urine on his own. José Luis Okeefe MD Internal Medicine Resident, PGY-3 Nephrology attending: patient seen and examined with resident. leukocytosis is concerning. needs ID consult. further imaging studies recommended by ID. HD tomorrow. Jeet Reid MD Date of Service: May 17, 2025 Billing Provider: JEET REID MD, SURYA PRATIK, [facility] May 17, 2025 14:38 JEET REID MD May 17, 2025 20:21
[2025-05-17 15:38] LABS: ABG BASE EXCESS -5.6 mmol/L (-2.0-3.0); ABG HCO3 21.5 mmol/L (21.0-28.0); ABG OXYGEN SATURATION 97.8 % (94.0-98.0); ABG PCO2 (T) 49.3 mmHg (35.0-48.0); ABG PH (T) 7.261 (7.350-7.450); ABG PO2 (T) 107.9 mmHg (83.0-108.0); ALLEN'S TEST POSITIVE; FCOHb 0.9 % (0.5-1.5); FHHb 2.2 % (0.0-5.0); FIO2 55.0 mmHg/%; FMetHb 0.2 % (0.0-1.5); FO2Hb 96.7 % (94.0-98.0); MODE VENT - AC/PRVC; PATIENT TEMPERATURE 37.7; PEEP 10 cm H2O; RESPIRATORY RATE 24 b/min; TIDAL VOLUME 475 mL; TOTAL HEMOGLOBIN 16.1 G/dl (13.5-17.5)
[2025-05-17 15:54] LABS: MEAN PLATELET VOLUME 8.5 FL (7.4-10.4); RED CELL DISTRIBUTION WIDTH 18.5 % (11.5-14.5)
[2025-05-17 16:01] LABS: CREATININE 3.78 MG/DL (0.60-1.10); PHOSPHORUS 8.8 MG/DL (2.3-4.5); TOTAL CARBON DIOXIDE 23.3 MMOL/L (24-32); eCRCL 30 ML/MIN; eGFR 17 ML/MIN
[2025-05-17] MEDS: SODIUM ZIRCONIUM CYCLOSILICATE 10 GM POWD.PACK PO ONE (16:58)
[2025-05-17] MEDS: tPA-cathflo 2mg/2ml IV flush 2 MG/2 ML VIAL IVF ONE (17:12)
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
--- NOTE | 2025-05-17 19:41 | PROGRESS NOTE ---
Subjective Subjective Patient seen and examined at the bedside today.The patient continues to be sedated and mechanically ventilated.His CVVH he is currently held there was suspicion of clotting last night. Reason for visit: Pulmonary critical care follow-up Reviewed: Care Plan, H&P, Labs, Radiology Daily Progress Note Exam Vitals Vital Signs Date Time Temp Pulse Resp B/P (MAP) Pulse Ox O2 Delivery O2 Flow Rate FiO2 05/17/25 19:14 91 24 96 55 05/17/25 19:00 99.5 113/59 (77) Mechanical Ventilator 05/17/25 08:00 20.0 Result Diagram: 05/17/25 1530 05/17/25 1530 Exam General: Obese, Intubated and sedated HEENT: Conjunctiva pink, Sclera clear, Mucus Membranes moist. Neck: Supple without masses and tenderness. Resp: Coarse breath sounds bilaterally, no wheezing heard. Heart: Regular Rate and rhythm, normal S1 and S2 without murmur, rub or gallop. Abdomen: Soft and non tender no organomegaly Extremities: Left leg - erythematous, and less swollen with appearance of wrinkles. New blisters. No weepage. Skin: Warm and Dry. Results Coagulation Studies Laboratory Tests Test 05/06/25 23:16 05/16/25 19:55 05/17/25 02:00 05/17/25 07:55 D-Dimer 1.32 MG/L FEU (0-0.50) H D-Dimer Comment Prothrombin Time 12.4 SECONDS (9.0-12.0) H INR International Normalized Ratio 1.2 INR Activated Partial Thromboplast Time 43 SECONDS (22-32) H APTT (Heparin Protocol) 61 SECONDS (45-75) Coagulation Comments VTE VTE Risk Score VTE Risk Score Reference Ranges: Score 0-1 = Low Risk (Aggressive mobilization; early ambulation; no VTE prophylaxis required) Score 2: Moderate Risk (Intermittent/Pneumatic Compression Device OR Lovenox/Heparin/Coumadin) Score 3-4: High Risk (Intermittent/Pneumatic Compression Device AND Lovenox/Heparin/Coumadin) Score > or = 5: Highest Risk (Intermittent/Pneumatic Compression Device AND Lovenox/Heparin/Coumadin) Assessment/Plan Assessment 44-year-old male is admitted in the ICU for acute hypoxemic respiratory failure requiring intubation and mechanical ventilation secondary to septic shock from cellulitis of the lower extremity. Plan Infectious diseases: Septic shock Left lower extremity cellulitis WBC trending and procalcitonin trending down Continue linezolid and cefepime. Wound cultures grew Proteus mirabilis, GAS, and Corynebacterium striatum. Continue wound care. Venous ultrasound lower extremity showed no evidence of DVT or thrombosis. Arterial ultrasound showed patent arteries. Off Levophed. Respiratory system: Acute hypoxemic respiratory failure ARDS: Lung compliance improved with fluid removal. Likely secondary to sepsis Untreated sleep apnea and possible pulmonary hypertension Currently intubated and sedated with fentanyl 275 mcg an hour. Back on midazolam 2 mg an hour. On PRVC, FiO2 40%, PEEP 12. Maintain PEEP of 12 for today, and if he maintains his saturations we will turn it down tomorrow. Cardiology: Septic shock Intermittent third-degree AV block, resolved Nonsustained V-tach Currently the patient is maintaining his heart rate in 70s. Cardiology is on board. Maintain potassium above four and magnesium above two. Nephrology: KEIRA likely secondary to vasomotor nephropathy Hyperkalemia, resolved CVVH off due to clotting. Fluid being taken off from this morning - Taking out 200 cc/hour negative fluid balance as tolerated and as per nephrology recommendations We will follow Nephrology recommendation 2K bath changed to 4K bath to maintain potassium more than four GI: Ischemic hepatitis LFTs trending down. Maintain MAP above 65. Continue monitoring. Nutrition: RD consulted. Started him on tube feeds Vital HP with Goal rate 90 mL/hour. Code Status: Full code DVT Prophylaxis: Lovenox Analgesia/Sedation: Fentanyl Lines/Tubes: Right IJ Robert, left IJ central line GI Prophylaxis: Protonix Nutrition: Vital HP Disposition: Prognosis remains guarded. Critical care time spent greater than 35 minutes. Expected Outcome/Goals Expected Outcomes/Goals: Tolerance to TF, wt maintenance, bowel regularity, wound healing HÉCTOR THOMAS MD May 17, 2025 19:41
[2025-05-17] MEDS: CEFEPIME 2gm in D5W 50mL 50 ML IV SCH (19:47)
[2025-05-18] VITALS (52 sets, daily range): BP systolic 88–138; BP diastolic 45–89; PULSE 82–102; RESP 13–29; TEMP 99.8–101.2; O2SAT 82–100
[2025-05-18 03:06] LABS: MEAN PLATELET VOLUME 8.0 FL (7.4-10.4); RED CELL DISTRIBUTION WIDTH 18.8 % (11.5-14.5)
[2025-05-18 03:18] LABS: ABG BASE EXCESS -8.2 mmol/L (-2.0-3.0); ABG HCO3 18.6 mmol/L (21.0-28.0); ABG OXYGEN SATURATION 98.5 % (94.0-98.0); ABG PCO2 (T) 44.0 mmHg (35.0-48.0); ABG PH (T) 7.248 (7.350-7.450); ABG PO2 (T) 123.0 mmHg (83.0-108.0); ALLEN'S TEST Modified; FCOHb 1.1 % (0.5-1.5); FHHb 1.5 % (0.0-5.0); FIO2 55.0 mmHg/%; FMetHb 0.2 % (0.0-1.5); FO2Hb 97.2 % (94.0-98.0); MODE VENT - PRVC; PATIENT TEMPERATURE 37.5; PEEP 10 cm H2O; RESPIRATORY RATE 24 b/min; TIDAL VOLUME 475 mL; TOTAL HEMOGLOBIN 15.3 G/dl (13.5-17.5)
[2025-05-18 03:29] LABS: CREATININE 4.77 MG/DL (0.60-1.10); TOTAL CARBON DIOXIDE 19.5 MMOL/L (24-32); eCRCL 23 ML/MIN; eGFR 13 ML/MIN
[2025-05-18 03:31] LABS: PHOSPHORUS 10.8 MG/DL (2.3-4.5)
--- NOTE | 2025-05-18 06:29 | RADIOLOGY REPORT ---
CHEST RADIOGRAPH INDICATION: ET Tube PLacement TECHNIQUE: Single frontal view of the chest was obtained COMPARISON: DI CHEST,SINGLE VIEW on DOS: 05/17/25. FINDINGS: Lines and Tubes: The endotracheal tube terminates 4.7 cm above the penelope. Left central venous catheter terminates in the superior vena cava. There is a catheter projecting over the right neck which is unchanged. The enteric tube courses below the left hemidiaphragm and the tip extends outside the field of view. Lungs: Multifocal airspace disease similar to prior study. Pleura: No effusion. No pneumothorax. Cardiomediastinal contours: Cardiomegaly. Bones: No acute osseous abnormality. IMPRESSION: 1. Appropriate position of the support lines and tubes. 2. Bilateral opacities which may reflect edema or pneumonia similar to prior study.
[2025-05-18 08:40] LABS: BANDS% (MANUAL) 2.0 % (0-10); EOSINOPHILS % (MANUAL) 2.0 % (0-6); LYMPHOCYTES % (MANUAL) 9.0 % (21-51); METAMYLEOCYTES% (MANUAL) 2.0 % (0-0); MONOCYTES % (MANUAL) 8.0 % (2-12); NEUTROPHILS % (MANUAL) 77.0 % (42-75); NUCLEATED RED BLOOD CELLS 2 /100WBC (0-0); PLATELET ESTIMATE NORMAL
[2025-05-18] MEDS: albumin (human) 25% 100ml IV 100 ML IV PRN (09:00)
[2025-05-18] MEDS: heparin 1,000 units/ml 10ml inj IV ONE (09:06)
[2025-05-18] MEDS: heparin 1,000unit/ml 10ml vial 10 ML IV ONE (09:06)
[2025-05-18] MEDS: heparin 1,000 units/ml 10ml inj HE ONE ×2 (09:07)
[2025-05-18] MEDS: EPOETIN ALFA-EPBX 20,000 UNIT/ML 1 ML MDV IV ONE (09:08)
[2025-05-18 15:09] LABS: CREATININE 4.25 MG/DL (0.60-1.10); TOTAL CARBON DIOXIDE 24.4 MMOL/L (24-32); eCRCL 26 ML/MIN; eGFR 15 ML/MIN
[2025-05-18 16:36] LABS: PHOSPHORUS 9.1 MG/DL (2.3-4.5)
--- NOTE | 2025-05-18 17:31 | PROGRESS NOTE- Residence ---
Progress Note - Resident Providers to CC Resident Creating Document: MAXIMILIANO BYRD RES ~ Antibiotic Timeout Antibiotic Ordered?: Yes Subjective pt remains under sedations with the fentnyl and midazolam and dose not follow the simple commands. The pressor Levophed was off today. The last night CVVH was held with the concern for the catheter flow defects, but this morning the patient will be having the HD throught the Romeo cath under Dr Danielson, applied psychology professor's instruction as pt was not responding on the CVVH therapy. Making UO through Andersen with the 5-10 cc/hr. Objective Vital Signs Date Time Temp Pulse Resp B/P (MAP) Pulse Ox O2 Delivery O2 Flow Rate FiO2 05/18/25 17:14 87 27 100 45 05/18/25 17:00 100.0 109/63 (78) Mechanical Ventilator 05/17/25 08:00 20.0 Result Diagram: 05/18/25 0300 05/18/25 1445 Vitals were stable at that moment with BP 11/59 mm Hg, MA 86/minute, SpO2 96% on FiO2 49% AC-PRVC. General: Under sedations, not agitated, not in acute distress, well cooperated during the physical. HEENT: Conjunctive are pink, sclerae clear, no icterus, pupil is equal in both sides, reactive to light, no ear discharge, no pharyngeal erythema or an edema, mouth and lips are moist. Neck: Supple, no JVD, no lymphadenopathy and thyromegaly. Lungs:Equal air entry on both lungs, no additional sounds Heart: S1-S2 regular sinus rhythm and, regular rate, no gallops, no rubs, no murmurs Abdomen: No visible peristalsis, Bowel sounds present on auscultation, soft, nontender, no guarding, no rigidity Extremities:The inflammation was subsided down by showing the some wrinkles over the left leg. No obvious deformities, no pitting edema bilaterally, capillary refill intact, peripheral pulsations are intact on both sides WATER PROJECT MANAGER: No focal neurological deficits, no motor and sensory weakness in all 4 extremities, could move all 4 extremities Musculoskeletal: No joint swelling, deformities, inflammations, and no scoliosis and back tenderness Skin: No active skin lesions and rashes Coagulation Studies Laboratory Tests Test 05/06/25 23:16 05/16/25 19:55 05/17/25 02:00 05/17/25 07:55 D-Dimer 1.32 MG/L FEU (0-0.50) H D-Dimer Comment Prothrombin Time 12.4 SECONDS (9.0-12.0) H INR International Normalized Ratio 1.2 INR Activated Partial Thromboplast Time 43 SECONDS (22-32) H APTT (Heparin Protocol) 61 SECONDS (45-75) Coagulation Comments Advance Care Planning Advanced Care plannin - 30 Minutes Assessment Assessment A 44-year-old male is admitted in the ICU for acute hypoxemic respiratory failure requiring intubation and mechanical ventilation secondary to septic shock from cellulitis of the lower extremity, currently requiring the HD for the abnormal labs. Plan Plan Infectious Disease # Septic shock, reversed with Levophed- currently off # Left leg infected cellulitis -ID was requested for the consultation, Dr Jackson aware of the patient consultation. -LE cellulitis showed significant improvement and responding on IV Cefepime and Linezolid -Noted the new generalized bettye over the upper body central red colored papules -WBC remains off the chart with hanging around 28.7 on no apparent steroid therapy at that moment. -PHx of pelvis floor prosthesis with the previous hx of infections before with the concern of the recurrent infections leading to his current infectious labs picture. -continue IV Cefepime and linezolid, will consider the repeated Blood C&S on ID consultation -HBV serology showed negative -continue routine wound care Pulmonology # Acute on chronic hypoxic respiratory failure 2/2 # ARDS, lung complaince improved with the fluid removal # Possibly from the septic shock # Untreated ALFREDA and possible consequence pulmonary hypertension - remains under sedations with fentanyl and Versed and intubated with the the [facility] ventilation support in AC-PRVC mode on FiO2 of 49% to maintain SpO2 96% -plan to turn it down if feasible tomorrow. Cardiology # Intermittent Third degree AV block, resolved # Non-sustained Ventricular Tachycardia -Cardiology is on board -to keep pt's serum K+ above 4 and Mg2+ above 2 to prevent unnecessary nonsustained ventricular tachycardia -HR was around 86 Nephrology # KEIRA, possibly from renal/ acute tubular necrosis 2/2 to septic shock and reduced blood flow, superimposed on contrast induced kidney injury # Hyperkalemia, resolved -Nephrology is on board -The CVVH was switched to the intermittent HD through the Robert cath under Nephrology's instructions -Plan to take out the UF 4L and will be more if tolerates and necessary -to monitor the electrolytes closely to balance between VTach from hypokalemia and replacement to induced K+ above 4 GI and Hepatology # Transaminase from the possible Ischemic hepatitis 2/2 septic shock # Plan with PEG tube placement -LFT is trending down -Maintain MAP above 65, currently off from Levophed now -monitor Daily CMP -Requested GI team, Dr Salinas for the possible PEG tube placement along with the requisition to the surgical team Dr Lam for the potential Trach placement for LTac care. -RD is on board for the TF with ital HP with Goal rate of 90 ml/hr Code Status: Full code DVT Prophylaxis: Lovenox Analgesia/Sedation: Fentanyl, Versed Lines/Tubes: Right IJ Robert, left IJ central line GI Prophylaxis: Protonix Nutrition: Vital HP Disposition: Prognosis remains guarded. Critical care time spent greater than 35 minutes. Resident MD attestation: Patient was seen, examined and discussed with attending MD, Dr. Jazmin BYRD MD Internal Medicine Resident, PGY3 [facility] Date of Service: May 18, 2025 Billing Provider: HÉCTOR THOMAS MD, TIN, RES May 18, 2025 17:30
--- NOTE | 2025-05-18 17:41 | PROGRESS NOTE- Residence ---
Progress Note - Resident Providers to CC Resident Creating Document: JOSÉ LUIS OKEEFE PARTHA ALONZO ~ Antibiotic Timeout Antibiotic Ordered?: Yes Subjective Patient is seen and examined at the bedside today. He started on intermittent hemodialysis from today. Continues to be intubated and mechanically ventilated. ID consult has been pending for a while. wbc remains high. I am told about pelvic prostheses. I am not sure what it is. ? needs Nuclear wbc scan. Strongly suggest ID consult please. Objective Vital Signs Date Time Temp Pulse Resp B/P (MAP) Pulse Ox O2 Delivery O2 Flow Rate FiO2 05/18/25 17:14 87 27 100 45 05/18/25 17:00 100.0 109/63 (78) Mechanical Ventilator 05/17/25 08:00 20.0 Result Diagram: 05/18/25 0300 05/18/25 1445 General: Obese, Intubated and sedated HEENT: Conjunctiva pink, Sclera clear, Mucus Membranes moist. Neck: Supple without masses and tenderness. Resp: Coarse breath sounds bilaterally, no wheezing heard. Heart: Regular Rate and rhythm, normal S1 and S2 without murmur, rub or gallop. Abdomen: Soft and non tender no organomegaly Extremities: Left leg - erythema and swelling improved. Blisters present. Skin: Warm and Dry. Coagulation Studies Laboratory Tests Test 05/06/25 23:16 05/16/25 19:55 05/17/25 02:00 05/17/25 07:55 D-Dimer 1.32 MG/L FEU (0-0.50) H D-Dimer Comment Prothrombin Time 12.4 SECONDS (9.0-12.0) H INR International Normalized Ratio 1.2 INR Activated Partial Thromboplast Time 43 SECONDS (22-32) H APTT (Heparin Protocol) 61 SECONDS (45-75) Coagulation Comments Advance Care Planning Advanced Care plannin - 30 Minutes Assessment Assessment 44-year-old male is admitted in the ICU for acute hypoxemic respiratory failure requiring intubation and mechanical ventilation secondary to septic shock from cellulitis of the lower extremity. Plan Plan Nephrology progress note: KEIRA Acute tubular necrosis secondary to septic shock The patient's KEIRA is most likely secondary to ischemic acute tubular necrosis due to septic shock. Contrast exposure and also cause worsening of the patient's kidney injury. The patient was on CRRT until yesterday but there was concerns regarding the Robert cath getting blocked or getting stuck because of position and hence the patient has been started on intermittent hemodialysis starting today. Patient continues to have oral low urinary output over the last 24 hours. His BUN creatinine today after dialysis 83 and 4.25. Continue monitoring the patient's input and output. Continue monitoring the patient's renal function test. Might require dialysis for some time now. Hyperkalemia Controlled with the dialysis. Monitor the patient's electrolytes closely. Left lower extremity cellulitis Septic shock The patient continues to have significantly elevated WBC count. 28.7 today. His antibiotics were adjusted as per the cultural report-linezolid and cefepime. Recommend Infectious Disease consultation. Currently not on any pressors. Acute hypoxemic respiratory failure ARDS Possible underlying pulmonary hypertension Continues to be intubated and mechanically ventilated. Patient had hemodialysis done today. The patient has been maintaining negative fluid balance. Continue management of the ventilator as per the director digital marketing recommendation. Ischemic hepatitis Intermittent third-degree AV block Nonsustained V-tach Continue management as per the director digital marketing. CODE STATUS: Full code DVT prophylaxis: Lovenox GI prophylaxis: Protonix Diet: Chin Strap Cutter on board. Vital HP. Disposition: Continue management as per the director digital marketing. Patient is started on hemodialysis today. Continue close monitoring of the renal function. Awaiting ID consultation and recommendation. José Luis Okeefe MD Internal Medicine Resident, PGY-3 Nephrology attending: The patient was seen and examined with resident today. ID consult is still pending. ? needs nuclear wbc scan to find out any other foci of infection. wbc remains high. switched to Intermittent HD now. HD was done this am. further imaging is worthwhile. remains encephalopathic. Cre plan rev iewed with resident. Jeet Ried MD Date of Service: May 18, 2025 Billing Provider: JEET REID MD, SURYA PRATIK, RES May 18, 2025 17:41 JEET REID MD May 19, 2025 06:23
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
[2025-05-19] VITALS (49 sets, daily range): BP systolic 100–157; BP diastolic 56–89; PULSE 81–106; RESP 12–30; TEMP 99.5–101.1; O2SAT 91–96
[2025-05-19 02:33] LABS: MEAN PLATELET VOLUME 8.5 FL (7.4-10.4); RED CELL DISTRIBUTION WIDTH 18.6 % (11.5-14.5)
[2025-05-19 02:53] LABS: ABG BASE EXCESS -7.8 mmol/L (-2.0-3.0); ABG HCO3 19.0 mmol/L (21.0-28.0); ABG OXYGEN SATURATION 97.0 % (94.0-98.0); ABG PCO2 (T) 44.8 mmHg (35.0-48.0); ABG PH (T) 7.250 (7.350-7.450); ABG PO2 (T) 99.5 mmHg (83.0-108.0); ALLEN'S TEST Modified; FCOHb 1.0 % (0.5-1.5); FHHb 3.0 % (0.0-5.0); FIO2 40.0 mmHg/%; FMetHb 0.1 % (0.0-1.5); FO2Hb 95.9 % (94.0-98.0); MODE VENT - PRVC; PATIENT TEMPERATURE 37.6; PEEP 10 cm H2O; RESPIRATORY RATE 24 b/min; TIDAL VOLUME 475 mL; TOTAL HEMOGLOBIN 14.6 G/dl (13.5-17.5)
[2025-05-19 02:53] LABS: CREATININE 5.33 MG/DL (0.60-1.10); TOTAL CARBON DIOXIDE 21.1 MMOL/L (24-32); eCRCL 21 ML/MIN; eGFR 12 ML/MIN
[2025-05-19 02:56] LABS: PHOSPHORUS 13.3 MG/DL (2.3-4.5)
[2025-05-19 03:21] LABS: HIV ANTIBODY 1&2 RAPID NON-REACTIVE (Neg)
--- NOTE | 2025-05-19 06:01 | RADIOLOGY REPORT ---
CHEST RADIOGRAPH Indication: ET Tube PLacement Technique: Single frontal view of the chest was obtained COMPARISON: DI CHEST,SINGLE VIEW on DOS: 05/18/25, DI CHEST,SINGLE VIEW on DOS: 05/17/25, DI CHEST,SINGLE VIEW on DOS: 05/16/25, DI CHEST,SINGLE VIEW on DOS: 05/15/25, DI CHEST,SINGLE VIEW on DOS: 05/14/25 FINDINGS: Lines and Tubes: Endotracheal tube, enteric catheter, left and right central venous catheter in satisfactory position. Lungs: Unchanged multifocal airspace disease. Pleura: No effusion. No pneumothorax. Cardiomediastinal contours: Unremarkable Bones: Unremarkable IMPRESSION: Lines and tubes in satisfactory position. No significant interval change.
[2025-05-19] MEDS ORDERED: albumin (human) 25% 100ml IV 100 ML IV PRN (06:30)
[2025-05-19] MEDS: cefepime 1GM in D5W 50mL 50 ML IV SCH (07:08)
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
[2025-05-19] MEDS: levoFLOXACIN-Levaquin 250mg/D5 50 ML IV SCH (12:19)
[2025-05-19] MEDS ORDERED: sevelamer carbonate 800mg tablet PO SCH (12:30)
--- NOTE | 2025-05-19 13:48 | PROGRESS NOTE ---
Progress Note Dictate Providers to CC ~ Central Line/PICC still needed: Yes Central Line/PICC Necessity: Req HD/Plasmapheresis Andersen Indications Met/Not Met: F/C Indications Met Antibiotic Ordered?: Yes Subjective Subjective Appreciate ID getting involved. GEtting Nuclear WBc scan soon. Meanwhile, post HD, the bUn and creatinine between yesterday and today clearly indicates that the catheter is malfunctioning and needs a change without fail. the only option we have is to change it over guide wire, as he already has left IJ triple lumen and his both groins have intertrigo/ michael and clearly NOT an area to be used to place Robert. Also, with the poor flows, his Phosphorus keeps increasing. Change the tube feeds to renal formula only. Though we can try to do dialysis today with [facility] existing cath, it definitely needs to be changed in am tomorrow. He will again need HD tomorrow. he has facial rashes that are persistent. antibiotics have been changed by . Remains on [facility] ventilator, encephalopathic. Objective Vitals Vital Signs Date Time Temp Pulse Resp B/P (MAP) Pulse Ox O2 Delivery O2 Flow Rate FiO2 05/19/25 12:43 86 27 93 40 05/19/25 09:00 99.7 111/65 (80) Mechanical Ventilator 05/17/25 08:00 20.0 Lab Results: 05/19/25 0219 05/19/25 0219 Objective Vital Signs: As above, intuabted General: Normal body habitus, no acute distress. Skin: No rashes, lumps, ulcers, blisters, purpura or petechiae HEENT: Anicteric sclera, CYNDI Neck: Supple and nontender without enlargement of the thyroid, or lymphadenopathy. Chest: Normal size and shape, no tenderness, CTA bilaterally Heart: Regular. No jugular venous distention, S1 and S2 heard , no gallop Abdomen: Soft and non tender no organomegaly,BS+ Extremities: left leg very erythematous and warm. Neuro: Nonfocal. Coagulation Studies Laboratory Tests Test 05/06/25 23:16 05/16/25 19:55 05/17/25 02:00 05/17/25 07:55 D-Dimer 1.32 MG/L FEU (0-0.50) H D-Dimer Comment Prothrombin Time 12.4 SECONDS (9.0-12.0) H INR International Normalized Ratio 1.2 INR Activated Partial Thromboplast Time 43 SECONDS (22-32) H APTT (Heparin Protocol) 61 SECONDS (45-75) Coagulation Comments Advance Care Planning Advanced Care plannin - 30 Minutes Problem\Assessment\Plan Problems/Diagnosis: (1) Hyperkalemia Assessment & Plan: CVVH stopped and has been on daily dialysis. (2) Acute kidney injury Assessment & Plan: as above. contrast exposure, ischemic ATN in progress with hepatic failure most likely from sepsis. CVVh stopped. on daily HD (3) Wound cellulitis Assessment & Plan: the left leg cellulitis seems to be getting better. remains critically ill. weaning from the ventilator is in slow progress. remains encephalopathic. appreciate ID getting involved. (4) Acute respiratory failure Assessment & Plan: on ventilator. FiO2 is down to .5 (5) Septic shock Assessment & Plan: antibiotics changed by . HD today. off pressors. getting wbc scan. (6) Hyperphosphatemia Assessment & Plan: start Renvela 3200mg TId with tube feeds please. it is very high at 13 possibly from the poor flows and recirculation at the cath level + himbeing catabolic. Sepsis Screening Skin Color: Reddened TAYLER REID MD May 19, 2025 13:47
--- NOTE | 2025-05-19 16:29 | PROGRESS NOTE- Residence ---
Progress Note - Resident Providers to CC Resident Creating Document: MYRIAM BRYAN RES ~ Antibiotic Timeout Antibiotic Ordered?: No Subjective Patients mother and sister were counseled in detail regarding PEG tube placement, including risks, benefits, alternatives, and risks of non-placement. They verbalized understanding and declined PEG tube placement at this time. Decision was made voluntarily. Team will continue supportive care. Objective Vital Signs Date Time Temp Pulse Resp B/P (MAP) Pulse Ox O2 Delivery O2 Flow Rate FiO2 05/19/25 16:15 95 15 121/62 (81) 93 Mechanical Ventilator 40 05/19/25 16:00 98.6 05/17/25 08:00 20.0 Result Diagram: 05/19/25 0219 05/19/25 0219 Obese, intubated HEENT: Atraumatic, normocephalic, EOMI, anicteric sclera ; pink conjunctiva Neck: Trachea midline. Supple, full range of motion, no JVD Cardiac: Regular rhythm, regular rate with no murmurs all over the precordium. Respiratory: Diminished breath sounds with crackles Gastrointestinal: Normal bowel sounds, symmetric, nondistended Musculoskeletal: Erythema and swelling present over the left lower extremity, blisters also seen Neurological: Intubated Skin: Warm and dry Coagulation Studies Laboratory Tests Test 05/06/25 23:16 05/16/25 19:55 05/17/25 02:00 05/17/25 07:55 D-Dimer 1.32 MG/L FEU (0-0.50) H D-Dimer Comment Prothrombin Time 12.4 SECONDS (9.0-12.0) H INR International Normalized Ratio 1.2 INR Activated Partial Thromboplast Time 43 SECONDS (22-32) H APTT (Heparin Protocol) 61 SECONDS (45-75) Coagulation Comments Advance Care Planning Advanced Care plannin - 30 Minutes Assessment Assessment A 44-year-old male is admitted in the ICU for acute hypoxemic respiratory failure requiring intubation and mechanical ventilation secondary to septic shock from cellulitis of the lower extremity, currently requiring the HD for the abnormal labs. Plan Plan GI Assessment & Plan: Indication: For long-term enteral nutrition due to prolonged intubation and inability to maintain oral intake. Current Status: Patient sedated, mechanically ventilated, hemodynamically stable off vasopressors, LFTs trending down. Plan: Patients mother and sister were present at bedside. A detailed discussion was held regarding the option of percutaneous endoscopic gastrostomy (PEG) tube placement. The indications for PEG tube placement, expected benefits (including provision of long-term enteral nutrition, prevention of malnutrition, and medication administration) and alternatives were explained. The risks of PEG tube placement were discussed in detail, including but not limited to bleeding, infection, aspiration, tube dislodgement, perforation, need for repeat procedures, and procedure-related complications given the patients underlying medical condition. The risks and consequences of not proceeding with PEG tube placement were also explained, including inadequate nutritional intake, dehydration, inability to safely administer medications enterally, worsening malnutrition, increased risk of aspiration with oral feeding, poor wound healing, functional decline and potential impact on overall prognosis. After discussion and having the opportunity to ask questions, the patients mother and sister stated they do not wish to proceed with PEG tube placement at this time. They verbalized understanding of the risks, benefits, and alternatives and their decision was made voluntarily. All questions were answered. GI currently signing off, please reconsult if patient's family agrees to proceed further with PEG tube placement. Septic shock, left lower extremity cellulitis Acute on chronic hypoxic respiratory failure 2/2 ARDS, lung complaince improved with the fluid removal Tntermittent Third degree AV block, resolved Non-sustained Ventricular Tachycardia KEIRA, tubular stasis Hyperkalemia Management per putty glazer, Nephrology, Cardiology and primary team CRITICAL CARE TIME >30 MINUTES Myriam Byran MD Internal Medicine Resident, PGY-2 Date of Service: May 19, 2025 Billing Provider: HOWIE VITAL MD, GAURAV, RES May 19, 2025 16:29
[2025-05-19] MEDS: heparin 1,000 units/ml 10ml inj IV ONE (17:03)
[2025-05-19] MEDS: heparin 1,000unit/ml 10ml vial 10 ML IV ONE (17:04)
[2025-05-19] MEDS: heparin 1,000 units/ml 10ml inj HE ONE ×2 (17:04)
[2025-05-19] MEDS: EPOETIN ALFA-EPBX 20,000 UNIT/ML 1 ML MDV IV ONE (17:05)
[2025-05-19] MEDS: sevelamer carbonate 800mg tablet PO SCH (17:52)
--- NOTE | 2025-05-19 18:12 | PROGRESS NOTE- Residence ---
Progress Note - Resident Providers to CC Resident Creating Document: MAXIMILIANO BYRD RES ~ Antibiotic Timeout Antibiotic Ordered?: Yes Subjective Patient's mother and a sister were seen at the bedside this morning. Having the lengthy discussion with the family regarding long-term goals of therapy, including temporary versus permanent trach and PEG placement, discussion regarding possible source of infection from the left hip/pelvic floor prosthesis, further management for ALFREDA with struggling CPAP management. Objective Vital Signs Date Time Temp Pulse Resp B/P (MAP) Pulse Ox O2 Delivery O2 Flow Rate FiO2 05/19/25 17:45 105 23 109/82 (91) 94 Mechanical Ventilator 40 05/19/25 17:00 98.6 05/17/25 08:00 20.0 Result Diagram: 05/19/2521805/19/25 021 Vitals were stable at that moment with HR 86/minute, BP one to 1/70, MEP 87, SpO2 93% on FiO2 39% AC-PRVC. General: Under sedations, not agitated, not in acute distress, well cooperated during the physical. HEENT: Conjunctive are pink, sclerae clear, no icterus, pupil is equal in both sides, reactive to light, no ear discharge, no pharyngeal erythema or an edema, mouth and lips are moist. Neck: Supple, no JVD, no lymphadenopathy and thyromegaly. Lungs:Equal air entry on both lungs, no additional sounds Heart: S1-S2 regular sinus rhythm and, regular rate, no gallops, no rubs, no murmurs Abdomen: No visible peristalsis, Bowel sounds present on auscultation, soft, nontender, no guarding, no rigidity Extremities:The inflammation was subsided down by showing the some wrinkles over the left leg. No obvious deformities, no pitting edema bilaterally, capillary refill intact, peripheral pulsations are intact on both sides [employer]ER: No focal neurological deficits, no motor and sensory weakness in all 4 extremities, could move all 4 extremities Musculoskeletal: No joint swelling, deformities, inflammations, and no scoliosis and back tenderness Skin: No active skin lesions and rashes Coagulation Studies Laboratory Tests Test 05/06/25 23:16 05/16/25 19:55 05/17/25 02:00 05/17/25 07:55 D-Dimer 1.32 MG/L FEU (0-0.50) H D-Dimer Comment Prothrombin Time 12.4 SECONDS (9.0-12.0) H INR International Normalized Ratio 1.2 INR Activated Partial Thromboplast Time 43 SECONDS (22-32) H APTT (Heparin Protocol) 61 SECONDS (45-75) Coagulation Comments Assessment Assessment A 44-year-old male is admitted in the ICU for acute hypoxemic respiratory failure requiring intubation and mechanical ventilation secondary to septic shock from cellulitis of the lower extremity, currently requiring the HD for the abnormal labs. 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 If no improvement on changes, plan to DC linezolid to replace with Daptomycin. -WBC remains off the chart with hanging around 28.7 on no apparent steroid therapy at that moment. -PHx of pelvis floor prosthesis with the previous hx of infections before, pending NM bone scan to show up the infected prosthesis -pending repeated Blood C&S -HBV and HIV were negative -continue routine wound care Pulmonology # Acute on chronic hypoxic respiratory failure 2/2 # ARDS, lung complaince improved with the fluid removal # Possibly from the septic shock # Untreated ALFREDA and possible consequence pulmonary hypertension - remains under sedations with fentanyl and Versed should be cut off now, and intubated with the [facility] ventilation support in AC-PRVC mode on FiO2 of 39% to maintain SpO2 93% -plan to turn it down if feasible tomorrow. -Mother and sister at the bedside were discussed with the goals of therapy and plan for temporary trach for [facility] Trach for ALFREDA struggling with the CPAP plan. Cardiology # Intermittent Third degree AV block, resolved # Non-sustained Ventricular Tachycardia -Cardiology is on board -to keep pt's serum K+ above 4 and Mg2+ above 2 to prevent unnecessary nonsustained ventricular tachycardia -HR was around 86 Nephrology # KEIRA, possibly from renal/ acute tubular necrosis 2/2 to septic shock and reduced blood flow, superimposed on contrast induced kidney injury # Hyperkalemia # Hyperphosphatemia -Nephrology is on board -Recommended to start Renvela 3200mg TId with tube feeds on renal diet. started Sevelamer -The CVVH was switched to the intermittent HD through the Robert cath under Nephrology's instructions, where they recommended to change the New Robert as the other accessible sites are not favored to be placed with one. -Plan to do HD again tomorrow -to monitor the electrolytes closely to balance between VTach from hypokalemia and replacement to induced K+ above 4 GI and Hepatology # Transaminase from the possible Ischemic hepatitis 2/2 septic shock # Plan with PEG tube placement -Pt's sister and mother were provided with the lengthy discussion by GI team for the possible placement of PEG tube, however, the family denied to have PEG tube placement. GI team is signing off. -LFT is trending down -Maintain MAP above 65, currently off from Levophed now -monitor Daily CMP -RD is on board for the TF with vital HP with Goal rate of 90 ml/hr, recommend to consider the renal diet for TF as well Code Status: Full code DVT Prophylaxis: Lovenox Analgesia/Sedation: Fentanyl, Versed Lines/Tubes: Right IJ Robert, left IJ central line GI Prophylaxis: Protonix Nutrition: Vital HP Disposition: Prognosis remains guarded. Critical care time spent greater than 35 minutes. Resident MD attestation: Patient was seen, examined and discussed with attending MD, Dr. Jazmin BYRD MD Internal Medicine Resident, PGY3 [facility] Date of Service: May 19, 2025 Billing Provider: HÉCTOR THOMAS MD, TIN, RES May 19, 2025 18:12
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
--- NOTE | 2025-05-19 21:14 | PROGRESS NOTE ---
Progress Note Dictate Providers to CC ~leukocytosis Central Line/PICC still needed: N\A Andersen Indications Met/Not Met: F/C Indications Met Antibiotic Ordered?: N/A MRSA Education MRSA Education Provided to pt: N/A Objective Vitals Vital Signs Date Time Temp Pulse Resp B/P (MAP) Pulse Ox O2 Delivery O2 Flow Rate FiO2 05/19/25 20:26 106 28 94 40 05/19/25 20:00 100.9 121/74 (90) Mechanical Ventilator 05/17/25 08:00 20.0 Lab Results: 05/19/25 0219 05/19/25 0219 Coagulation Studies Laboratory Tests Test 05/06/25 23:16 05/16/25 19:55 05/17/25 02:00 05/17/25 07:55 D-Dimer 1.32 MG/L FEU (0-0.50) H D-Dimer Comment Prothrombin Time 12.4 SECONDS (9.0-12.0) H INR International Normalized Ratio 1.2 INR Activated Partial Thromboplast Time 43 SECONDS (22-32) H APTT (Heparin Protocol) 61 SECONDS (45-75) Coagulation Comments Counseling Services Smoking & Tobacco Cessation: N/A Advance Care Planning Advanced Care planning: N/A Problem\Assessment\Plan Additional Plan Problem\Assessment\Plan Additional Plan Assessment 44-year-old male is admitted in the ICU for acute hypoxemic respiratory failure requiring intubation and mechanical ventilation secondary to septic shock from cellulitis of the lower extremity. Plan KEIRA Acute tubular necrosis secondary to septic shock CRRT switched to HD Hyperkalemia - 5.5 HD Left lower extremity cellulitis Septic shock off pressors Acute hypoxemic respiratory failure ARDS vent settings reviewed - no changes Ischemic hepatitis Intermittent third-degree AV block Nonsustained V-tach CODE STATUS: Full code DVT prophylaxis: Lovenox GI prophylaxis: Protonix Diet: Dredge Operator on board. Vital HP. Patient seen and assessed via audio visual HIPAA compliant AUDIO VISUAL aid 60 mins CC time Ofelia Jessica MD Sepsis Screening Skin Color: Reddened OFELIA JESSICA MD May 19, 2025 21:14
[2025-05-20] VITALS (50 sets, daily range): BP systolic 71–168; BP diastolic 34–104; PULSE 83–115; RESP 12–29; TEMP 99.2–100.4; O2SAT 87–97
[2025-05-20 02:50] LABS: MEAN PLATELET VOLUME 8.4 FL (7.4-10.4); RED CELL DISTRIBUTION WIDTH 19.0 % (11.5-14.5)
[2025-05-20 03:01] LABS: CREATININE 5.30 MG/DL (0.60-1.10); TOTAL CARBON DIOXIDE 20.8 MMOL/L (24-32); eCRCL 21 ML/MIN; eGFR 12 ML/MIN
[2025-05-20 03:03] LABS: PHOSPHORUS 14.2 MG/DL (2.3-4.5)
[2025-05-20] MEDS: SODIUM ZIRCONIUM CYCLOSILICATE 10 GM POWD.PACK PO ONE (03:36)
[2025-05-20] MEDS: dextrose 50%-water 50ml dispensing syringe IV ONE (03:36)
[2025-05-20] MEDS: insulin regular, human 10 units/0.1 ml syringe IV ONE (03:37)
[2025-05-20] MEDS: insulin regular, human U-100 10ml vial - multi-dose IV ONE (03:56)
[2025-05-20 04:01] LABS: ABG BASE EXCESS -9.3 mmol/L (-2.0-3.0); ABG HCO3 17.9 mmol/L (21.0-28.0); ABG OXYGEN SATURATION 94.3 % (94.0-98.0); ABG PCO2 (T) 45.0 mmHg (35.0-48.0); ABG PH (T) 7.221 (7.350-7.450); ABG PO2 (T) 85.2 mmHg (83.0-108.0); ALLEN'S TEST Modified; FCOHb 1.0 % (0.5-1.5); FHHb 5.6 % (0.0-5.0); FIO2 40.0 mmHg/%; FMetHb 0.2 % (0.0-1.5); FO2Hb 93.2 % (94.0-98.0); MODE PRVC; PATIENT TEMPERATURE 37.7; PEEP 8 cm H2O; RESPIRATORY RATE 24 b/min; TIDAL VOLUME 475 mL; TOTAL HEMOGLOBIN 14.9 G/dl (13.5-17.5)
[2025-05-20] MEDS: ondansetron/PF 4mg/2ml inj IV PRN (04:53)
--- NOTE | 2025-05-20 06:15 | RADIOLOGY REPORT ---
CHEST RADIOGRAPH INDICATION: ET Tube PLacement TECHNIQUE: Single frontal view of the chest was obtained COMPARISON: DI CHEST,SINGLE VIEW on DOS: 05/19/25, DI CHEST,SINGLE VIEW on DOS: 05/18/25, DI CHEST,SINGLE VIEW on DOS: 05/17/25, DI CHEST,SINGLE VIEW on DOS: 05/16/25, DI CHEST,SINGLE VIEW on DOS: 05/15/25 FINDINGS: Lines and Tubes: Unchanged. Lungs: Right lung apex excluded. Moderate diffuse increased prominence of the pulmonary vasculature. Pleura: No effusion. No pneumothorax. Cardiomediastinal contours: Unremarkable Bones: Unremarkable IMPRESSION: 1. Moderate diffuse increased prominence of the pulmonary vasculature. 2. Lines and tubes unchanged.
--- NOTE | 2025-05-20 06:31 | PROGRESS NOTE ---
Progress Note Dictate Providers to CC ~ Central Line/PICC still needed: Yes Central Line/PICC Necessity: Req HD/Plasmapheresis Andersen Indications Met/Not Met: F/C Indications Met Antibiotic Ordered?: Yes Subjective Subjective The patient NEEDS TEMP SREEKANTH EXCHNGED OVER GUIDE WIRE THIS MORNING WITHOUT FAIL TO ENABLE PROPER DIALYSIS FOR BETTER CLEARANCE. HE IS UREMIC. Objective Vitals Vital Signs Date Time Temp Pulse Resp B/P (MAP) Pulse Ox O2 Delivery O2 Flow Rate FiO2 05/20/25 05:37 108 27 93 40 05/20/25 05:00 99.7 122/67 (85) Mechanical Ventilator 05/17/25 08:00 20.0 Lab Results: 05/20/25 0219 05/20/25 0420 Objective Vital Signs: As above, intuabted General: Normal body habitus, no acute distress. Skin: No rashes, lumps, ulcers, blisters, purpura or petechiae HEENT: Anicteric sclera, CYNDI Neck: Supple and nontender without enlargement of the thyroid, or lymphadenopathy. Chest: Normal size and shape, no tenderness, CTA bilaterally Heart: Regular. No jugular venous distention, S1 and S2 heard , no gallop Abdomen: Soft and non tender no organomegaly,BS+ Extremities: left leg very erythematous and warm. Neuro: Nonfocal. Coagulation Studies Laboratory Tests Test 05/06/25 23:16 05/16/25 19:55 05/17/25 02:00 05/17/25 07:55 D-Dimer 1.32 MG/L FEU (0-0.50) H D-Dimer Comment Prothrombin Time 12.4 SECONDS (9.0-12.0) H INR International Normalized Ratio 1.2 INR Activated Partial Thromboplast Time 43 SECONDS (22-32) H APTT (Heparin Protocol) 61 SECONDS (45-75) Coagulation Comments Problem\Assessment\Plan Problems/Diagnosis: (1) Hyperkalemia (2) Acute kidney injury (3) Wound cellulitis (4) Acute respiratory failure (5) Septic shock (6) Hyperphosphatemia Sepsis Screening Skin Color: Reddened TAYLER REID MD May 20, 2025 06:31
[2025-05-20] MEDS: sevelamer carbonate 0.8gm powder pkt OGT SCH (13:00)
--- NOTE | 2025-05-20 14:16 | RADIOLOGY REPORT ---
CLINICAL HISTORY: Post line placement. TECHNIQUE: Single frontal view of the chest was obtained. COMPARISON: DI CHEST,SINGLE VIEW on DOS: 05/20/25, DI CHEST,SINGLE VIEW on DOS: 05/19/25, DI CHEST,SINGLE VIEW on DOS: 05/18/25, DI CHEST,SINGLE VIEW on DOS: 05/17/25, DI CHEST,SINGLE VIEW on DOS: 05/16/25DI CHEST,SINGLE VIEW on DOS: 05/20/25, DI CHEST,SINGLE VIEW on DOS: 05/19/25, DI CHEST,SINGLE VIEW on DOS: 05/18/25, DI CHEST,SINGLE VIEW on DOS: 05/17/25, DI CHEST,SINGLE VIEW on DOS: 05/16/25 FINDINGS: See impression. IMPRESSION: Compared to prior chest radiograph from earlier today: 1. Interval placement of a right transjugular approach central venous catheter followed to the lower superior vena cava/superior cavoatrial junction. Interval placement of a left transjugular approach central venous catheter followed to the left brachiocephalic vein. No pneumothorax. 2. Endotracheal tube projects over the midthoracic trachea and is approximately 6 cm above the penelope. 3. Similar-appearing moderate pulmonary vascular congestion/questionable mild pulmonary edema. 4. Stable cardiomediastinal silhouette. 5. No other convincing change.
[2025-05-20] MEDS: propofol 1000mg/100ml bottle 100 ML IV ONE (14:51)
[2025-05-20] MEDS: propofol 1000mg/100ml bottle 100 ML IV SCH (14:57)
--- NOTE | 2025-05-20 17:17 | PROGRESS NOTE- Residence ---
Progress Note - Resident Providers to CC Resident Creating Document: FLORIDA TRINIDAD RES ~ Antibiotic Timeout Antibiotic Ordered?: Yes Subjective Patient seen and examined at bedside. WBCs trending down, on 40% FiO2. Objective Vital Signs Date Time Temp Pulse Resp B/P (MAP) Pulse Ox O2 Delivery O2 Flow Rate FiO2 05/20/25 17:07 26 39 05/20/25 17:00 87 103/52 (69) 93 Mechanical Ventilator 05/20/25 17:00 99.3 05/17/25 08:00 20.0 Result Diagram: 05/20/25 0219 05/20/25 0420 General: Intubated and sedated HEENT: Conjunctiva pink, Sclera clear, Mucus Membranes moist. Neck: Supple without masses and tenderness. Resp: Intubated, Diminished breath sounds bilaterally. Heart: Regular rhythm, normal S1 and S2, no rub, murmur or gallop. Abdomen: Soft and non tender no organomegaly. Normal bowel sounds x4 quadrant normoactive. Extremities: Left lower extremity erythema and edema, two wounds on the left lateral foot distal one around 1x1 cm has developed necrosis in the proximal 2x3 cm is an open wound with no active drainage at this time. FIREMAN: Unable to determine Skin: Maculopapular rash noted on the chest, face and extremities. Coagulation Studies Laboratory Tests Test 05/06/25 23:16 05/16/25 19:55 05/17/25 02:00 05/17/25 07:55 D-Dimer 1.32 MG/L FEU (0-0.50) H D-Dimer Comment Prothrombin Time 12.4 SECONDS (9.0-12.0) H INR International Normalized Ratio 1.2 INR Activated Partial Thromboplast Time 43 SECONDS (22-32) H APTT (Heparin Protocol) 61 SECONDS (45-75) Coagulation Comments Assessment Assessment 44-year-old male with history of obstructive sleep apnea, possible pulmonary hypertension, status post hip surgery left hip prosthesis, heart failure with preserved EF was admitted for sepsis secondary to left lower extremity cellulitis. ID has been consulted for concern of ongoing sepsis with elevated white count despite being on antibiotics. Plan Plan Sepsis and septic shock Source likely skin, left lower extremity cellulitis (failed outpatient oral antibiotic treatment) Concern for prosthetic joint infection (left hip) Possible history of infection with the prosthesis Maculopapular rash noted on the chest abdomen and extremities for the last two days Plan Repeat blood cultures NGTD, repeat lactic acid wnl, Continue linezolid, DC cefepime Continue Levaquin 250 daily Rash over his chest abdomen and extremities could be secondary to beta-lactam antibiotics, hence discontinuing cefepime. If the rash does not get better then we will consider to discontinue linezolid and can try daptomycin. Follow up with NM bone scan and WBC scan to rule out prosthetic joint infection of the left hip Acute hypoxic respiratory failure Acute kidney injury on hemodialysis Management per primary team Patient seen, examined and discussed with the attending physician Dr. Manuel Trinidad MD. IM Resident PGY-3 Date of Service: May 20, 2025 Billing Provider: ELVI PARK DO Addendum Patient seen and examined with Dr. Trinidad. Agree with the above assessment and plan. He was seen today after getting back from phase 2 of his bone scan. His rash is stable on his new regimen. WBC count slightly down. FLORIDA TRINIDAD, RES May 20, 2025 17:17 ELVI PARK DO May 20, 2025 22:27
[2025-05-20] MEDS: heparin 1,000 units/ml 10ml inj IV ONE (17:24)
[2025-05-20] MEDS: heparin 1,000unit/ml 10ml vial 10 ML IV ONE (17:25)
[2025-05-20] MEDS: heparin 1,000 units/ml 10ml inj HE ONE ×2 (17:26)
[2025-05-20] MEDS: mannitol 12.5gm/50mL VIAL IV ONE (17:27)
[2025-05-20] MEDS: EPOETIN ALFA-EPBX 20,000 UNIT/ML 1 ML MDV IV ONE (17:28)
[2025-05-20] MEDS ORDERED: DEXTROSE 15 GM of carb/4 tabs (each vial/BOTTLE has 4 tablets) PO PRN ×2 (17:40)
[2025-05-20] MEDS ORDERED: dextrose 50%-water 50ml dispensing syringe IV PRN ×2 (17:40)
[2025-05-20] MEDS ORDERED: glucagon, human recombinant 1mg kit SUBCUT PRN (17:40)
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
--- NOTE | 2025-05-20 18:18 | PROCEDURE NOTE- Residance ---
Procedure Note Providers to CC ~ Planned Procedure Renewing the pre existing Robert catheter for better HD flow Indications Renewing the pre existing Robert catheter for better HD flow Oil Well Driller MAXIMILIANO BYRD, Resident Type of Anesthesia Fentanyl Informed Consent Obtained Description Under the supervision of PulmCrit Attending Physician Dr Thomas. The sterile gown was up after the immediate washing the tank wagon operator hands. Under the universal strict sterile precaution, the proper sterile draping was done appropriately after disinfected the previous Robert catheter, and operated area on the right IJ neck. The pre-existing Robert catheter was guided with guided wire and the new Robert catheter was placed successfully. The blood flow were confirmed with aspiration of the central venous blood and smoothly flushing with normal saline through both brown and blue channels. The Robert catheter was secure with 2-0 Vicryl on both sides of the catheter attached to the skin with triple Knocks locking method. The catheter was also secure with Tegaderm after placing bioderm patch. The recheck CXR confirmed the well placed new clamped catheter without having any complications. Estimated Blood Loss 5-8 cc of venous blood on heparinization Complication None X-Ray Findings IMPRESSION: Compared to prior chest radiograph from earlier today: 1. Interval placement of a right transjugular approach central venous catheter followed to the lower superior vena cava/superior cavoatrial junction. Interval placement of a left transjugular approach central venous catheter followed to the left brachiocephalic vein. No pneumothorax. 2. Endotracheal tube projects over the midthoracic trachea and is approximately 6 cm above the penelope. 3. Similar-appearing moderate pulmonary vascular congestion/questionable mild pulmonary edema. 4. Stable cardiomediastinal silhouette. 5. No other convincing change. Date of Service: May 20, 2025 Billing Provider: HÉCTOR THOMAS MD, TIN, RES May 20, 2025 18:18
[2025-05-20] MEDS: albumin (human) 25% 100ml IV 100 ML IV PRN (18:22)
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
--- NOTE | 2025-05-20 19:46 | PROGRESS NOTE ---
Progress Note Dictate Providers to CC ~ Central Line/PICC still needed: Yes Central Line/PICC Necessity: Req HD/Plasmapheresis Andersen Indications Met/Not Met: F/C Indications Met Antibiotic Ordered?: Yes Subjective Subjective The tem devan cath is malfunctioning. So this has been changed over guide wire by and team. HD was attempted with the new cath but the flows are still not very impressive. we had a qb of 250 today and we did dialysis for 4 hours. He is quite catabolic and phosphorus has been running high. started renvela at 3200mg TID with tube feeds. Objective Vitals Vital Signs Date Time Temp Pulse Resp B/P (MAP) Pulse Ox O2 Delivery O2 Flow Rate FiO2 05/20/25 19:30 100 24 82/46 (58) 93 Mechanical Ventilator 50 05/20/25 19:00 99.9 05/17/25 08:00 20.0 Lab Results: 05/20/25 0219 05/20/25 0420 Objective Vital Signs: As above, intuabted General: Normal body habitus, no acute distress. Skin: No rashes, lumps, ulcers, blisters, purpura or petechiae HEENT: Anicteric sclera, CYNDI Neck: Supple and nontender without enlargement of the thyroid, or lymphadenopathy. Chest: Normal size and shape, no tenderness, CTA bilaterally Heart: Regular. No jugular venous distention, S1 and S2 heard , no gallop Abdomen: Soft and non tender no organomegaly,BS+ Extremities: left leg very erythematous and warm. Neuro: Nonfocal. Coagulation Studies Laboratory Tests Test 05/06/25 23:16 05/16/25 19:55 05/17/25 02:00 05/17/25 07:55 D-Dimer 1.32 MG/L FEU (0-0.50) H D-Dimer Comment Prothrombin Time 12.4 SECONDS (9.0-12.0) H INR International Normalized Ratio 1.2 INR Activated Partial Thromboplast Time 43 SECONDS (22-32) H APTT (Heparin Protocol) 61 SECONDS (45-75) Coagulation Comments Advance Care Planning Advanced Care plannin - 30 Minutes Problem\Assessment\Plan Problems/Diagnosis: (1) Hyperkalemia Assessment & Plan: daily dialysis is being done. cath has been changed over guide wire. ID following. (2) Acute kidney injury Assessment & Plan: as above. contrast exposure, ischemic ATN in progress with hepatic failure most likely from sepsis. continue dailyhD. (3) Wound cellulitis Assessment & Plan: the left leg cellulitis seems to be getting better. wbc scan is epnding. had bone scan as well. (4) Acute respiratory failure Assessment & Plan: on ventilator. FiO2 is down to .5 (5) Septic shock Assessment & Plan: antibiotics changed by . HD today. off pressors. getting wbc scan. (6) Hyperphosphatemia Assessment & Plan: start Renvela 3200mg TId with tube feeds please. it is very high at 13 possibly from the poor flows and recirculation at the cath level + himbeing catabolic. Sepsis Screening Skin Color: Normal TAYLER REID MD May 20, 2025 19:46
[2025-05-20] MEDS: insulin regular, human U-100 10ml vial - multi-dose SQ SCH (20:00)
--- NOTE | 2025-05-20 20:24 | RADIOLOGY REPORT ---
PROCEDURE: [facility] BONE SCAN Exam Date: 05/20/2025 10:07 AM Reason for study/Clinical History: 3 phase bone scan to evaluate left prosthetic hip Comparison Study: None Prior correlative imaging: None relevant. Nuclear Medicine Whole Body Bone Scan TECHNIQUE: Following the intravenous administration of 23.8 millicuries of technetium 99m labeled MDP, arterial and blood pool imaging with delayed spot views of the lower extremities was performed. FINDINGS: Angiographic and tissue phase images demonstrate no significant asymmetric hyperemia. Delayed skeletal phase whole-body images demonstrates mild uptake at the left greater trochanter. Otherwise faint periprosthetic left hip uptake. Moderate heterogeneous uptake throughout the right hip, presumably degenerative. IMPRESSION: Relatively mild uptake of the left greater trochanter, atypical for hardware related complication and most commonly related to either post operative change, healing trauma, or tendinitis. Please correlate clinically.
[2025-05-21] VITALS (34 sets, daily range): BP systolic 91–141; BP diastolic 49–85; PULSE 70–100; RESP 12–26; O2SAT 92–97
[2025-05-21 02:06] LABS: MEAN PLATELET VOLUME 8.6 FL (7.4-10.4); RED CELL DISTRIBUTION WIDTH 18.5 % (11.5-14.5)
[2025-05-21 02:25] LABS: CREATININE 4.80 MG/DL (0.60-1.10); TOTAL CARBON DIOXIDE 24.3 MMOL/L (24-32); eCRCL 23 ML/MIN; eGFR 13 ML/MIN
[2025-05-21 02:32] LABS: PHOSPHORUS 11.1 MG/DL (2.3-4.5)
[2025-05-21 03:29] LABS: ABG BASE EXCESS -7.9 mmol/L (-2.0-3.0); ABG HCO3 18.6 mmol/L (21.0-28.0); ABG OXYGEN SATURATION 98.9 % (94.0-98.0); ABG PCO2 (T) 41.6 mmHg (35.0-48.0); ABG PH (T) 7.268 (7.350-7.450); ABG PO2 (T) 146.9 mmHg (83.0-108.0); ALLEN'S TEST Yes; FCOHb 0.9 % (0.5-1.5); FHHb 1.1 % (0.0-5.0); FIO2 40.0 mmHg/%; FMetHb 0.1 % (0.0-1.5); FO2Hb 97.9 % (94.0-98.0); MODE prvc; PATIENT TEMPERATURE 37.0; PEEP 8 cm H2O; RESPIRATORY RATE 24 b/min; TIDAL VOLUME 475 mL; TOTAL HEMOGLOBIN 14.4 G/dl (13.5-17.5)
--- NOTE | 2025-05-21 06:01 | RADIOLOGY REPORT ---
CHEST RADIOGRAPH INDICATION: ET Tube PLacement TECHNIQUE: Single frontal view of the chest was obtained COMPARISON: DI CHEST,SINGLE VIEW on DOS: 05/20/25, DI CHEST,SINGLE VIEW on DOS: 05/20/25, DI CHEST,SINGLE VIEW on DOS: 05/19/25, DI CHEST,SINGLE VIEW on DOS: 05/18/25, DI CHEST,SINGLE VIEW on DOS: 05/17/25 FINDINGS: Lines and Tubes: Unchanged. Lungs: Stable appearing moderate diffuse increased prominence of the pulmonary vasculature. Pleura: No effusion. No pneumothorax. Cardiomediastinal contours: Cardiomegaly. Bones: Unremarkable IMPRESSION: 1. Stable appearing moderate pulmonary vascular congestion. 2. Cardiomegaly. 3. Lines and tubes unchanged.
[2025-05-21] MEDS ORDERED: albumin (human) 25% 100ml IV 100 ML IV PRN (08:00)
[2025-05-21] MEDS ORDERED: DEXTROSE 15 GM of carb/4 tabs (each vial/BOTTLE has 4 tablets) OGT PRN ×2 (11:26)
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
--- NOTE | 2025-05-21 12:26 | PROGRESS NOTE- Residence ---
Progress Note - Resident Providers to CC Resident Creating Document: FLORIDA TRINIDAD RES ~ Antibiotic Timeout Antibiotic Ordered?: Yes Subjective Patient seen and examined at bedside. Right-sided Robert catheter was changed yesterday. Continues to be on the vent and sedation, is responding to commands and able to wiggle toes. Objective Vital Signs Date Time Temp Pulse Resp B/P (MAP) Pulse Ox O2 Delivery O2 Flow Rate FiO2 05/21/25 11:55 98.6 82 25 140/78 (98) 94 Mechanical Ventilator 40 05/17/25 08:00 20.0 Result Diagram: 05/21/25 0143 05/21/25 1220 General: Intubated and sedated, able to respond to commands. HEENT: Conjunctiva pink, Sclera clear, Mucus Membranes moist. Neck: Supple without masses and tenderness. Resp: Intubated, Diminished breath sounds bilaterally. Heart: Regular rhythm, normal S1 and S2, no rub, murmur or gallop. Abdomen: Soft and non tender no organomegaly. Normal bowel sounds x4 quadrant normoactive. Extremities: Left lower extremity erythema and edema, two wounds on the left lateral foot distal one around 1x1 cm has developed necrosis in the proximal 2x3 cm is an open wound with no active drainage at this time. 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 Coagulation Studies Laboratory Tests Test 05/06/25 23:16 05/16/25 19:55 05/17/25 02:00 05/17/25 07:55 D-Dimer 1.32 MG/L FEU (0-0.50) H D-Dimer Comment Prothrombin Time 12.4 SECONDS (9.0-12.0) H INR International Normalized Ratio 1.2 INR Activated Partial Thromboplast Time 43 SECONDS (22-32) H APTT (Heparin Protocol) 61 SECONDS (45-75) Coagulation Comments Assessment Assessment 44-year-old male with history of obstructive sleep apnea, possible pulmonary hypertension, status post hip surgery left hip prosthesis, heart failure with preserved EF was admitted for sepsis secondary to left lower extremity cellulitis. ID has been consulted for concern of ongoing sepsis with elevated white count despite being on antibiotics. Plan Plan Sepsis and septic shock Source likely skin, left lower extremity cellulitis (failed outpatient oral antibiotic treatment) Concern for prosthetic joint infection (left hip) Possible history of infection with the prosthesis Maculopapular rash noted on the chest abdomen and extremities Repeat blood cultures NGTD, final sputum culture negative. Repeat lactic acid wnl, repeat procal brennan. WBCs downtrending, down to 14 today Plan Continue linezolid, DCed cefepime Continue Levaquin 250 daily Rash over his chest abdomen and extremities could be secondary to beta-lactam antibiotics, hence discontined cefepime. Rash present but not worsening, will continue to monitor. NM bone scan non conclusive, will see if WBC scan will show anything significant for concern of left hip prosthetic joint infection. Right IJ Robert was changed 05/20/2025. If possible Recommended to DC Left IJ and left midline and place a PICC line instead. Acute hypoxic respiratory failure Acute kidney injury on hemodialysis Management per primary team Patient seen, examined and discussed with the attending physician Dr. Magdy Trinidad MD. IM Resident PGY-3 Date of Service: May 21, 2025 Billing Provider: DESIREE MARINO MD Addendum Agree with above note. Patient seen and examined with Dr. Trinidad. Following commands. Still with some fever, but WBC dropping. Continue current abx, await Indium scan and try to get lines changed. FLORIDA TRINIDAD, RES May 21, 2025 12:26 DESIREE MARINO MD May 21, 2025 23:04
--- NOTE | 2025-05-21 12:29 | ELECTROCARDIOGRAPH REPORT ---
[facility] Test Date: 2025-05-21 Test Time: 12:19:34 Pat Name: GRACIELA KRAFT Department: 2ND FLOOR [facility]: [facility] Gender: M Hand Former: Malinda Obregon : 1980 Requested By: HÉCTOR THOMAS Order Number: [id number] Reading MD: Dr. IGNACIA Hallman Measurements Intervals [place] Rate: 88 P: 72 MN: 177 QRS: 61 QRSD: 138 T: 47 QT: 398 QTc: 482 Interpretive Statements Age not entered, assumed to be 49 years old for purpose of ECG interpretation Sinus rhythm Nonspecific intraventricular conduction delay ST elev, probable normal early repol pattern Electronically Signed On 05-21-2025 20:55:[address] IGNACIA Hallman Please click the below link to view image of tracing.
[2025-05-21 12:50] LABS: CREATININE 5.71 MG/DL (0.60-1.10); TOTAL CARBON DIOXIDE 21.1 MMOL/L (24-32); eCRCL 20 ML/MIN; eGFR 11 ML/MIN
[2025-05-21 13:22] LABS: PHOSPHORUS 14.6 MG/DL (2.3-4.5)
[2025-05-21] MEDS: tPA-cathflo 2mg/2ml IV flush 2 MG/2 ML VIAL IVF ONE (13:24)
--- NOTE | 2025-05-21 17:58 | PROGRESS NOTE ---
Progress Note Dictate Providers to CC ~ Central Line/PICC still needed: Yes Central Line/PICC Necessity: Req HD/Plasmapheresis Andersen Indications Met/Not Met: F/C Indications Met Antibiotic Ordered?: Yes Subjective Subjective The patient remains on yazan ventilator. starting to respond slowly, as reported by RN. ID work up in progress. HD will be done tomorrow. The new catheter has shown to be working, as the clearnce is better. Phosphorus has started coming down slowly. Objective Vitals Vital Signs Date Time Temp Pulse Resp B/P (MAP) Pulse Ox O2 Delivery O2 Flow Rate FiO2 05/21/25 17:16 27 40 05/21/25 17:15 98.6 76 113/59 (77) 97 Mechanical Ventilator 05/17/25 08:00 20.0 Lab Results: 05/21/25 0143 05/21/25 1220 Objective Vital Signs: As above, intuabted General: Normal body habitus, no acute distress. Skin: No rashes, lumps, ulcers, blisters, purpura or petechiae HEENT: Anicteric sclera, CYNDI Neck: Supple and nontender without enlargement of the thyroid, or lymphadenopathy. Chest: Normal size and shape, no tenderness, CTA bilaterally Heart: Regular. No jugular venous distention, S1 and S2 heard , no gallop Abdomen: Soft and non tender no organomegaly,BS+ Extremities: left leg very erythematous and warm. Neuro: Nonfocal. Coagulation Studies Laboratory Tests Test 05/06/25 23:16 05/16/25 19:55 05/17/25 02:00 05/17/25 07:55 D-Dimer 1.32 MG/L FEU (0-0.50) H D-Dimer Comment Prothrombin Time 12.4 SECONDS (9.0-12.0) H INR International Normalized Ratio 1.2 INR Activated Partial Thromboplast Time 43 SECONDS (22-32) H APTT (Heparin Protocol) 61 SECONDS (45-75) Coagulation Comments Advance Care Planning Advanced Care plannin - 30 Minutes Problem\Assessment\Plan Problems/Diagnosis: (1) Hyperkalemia Assessment & Plan: better. has a new cath now. (2) Acute kidney injury Assessment & Plan: ischemic ATN still dialysis dependent. (3) Wound cellulitis Assessment & Plan: the left leg cellulitis seems to be getting better. wbc scan is epnding. had bone scan as well. (4) Acute respiratory failure Assessment & Plan: on ventilator. FiO2 is down to .5 (5) Septic shock Assessment & Plan: antibiotics changed by . HD tomorrow. off pressors. getting wbc scan. (6) Hyperphosphatemia Assessment & Plan: start Renvela 3200mg TId with tube feeds please. it is very high at 13 possibly from the poor flows and recirculation at the cath level + himbeing catabolic. Sepsis Screening Skin Color: Reddened TAYLER REID MD May 21, 2025 17:58
[2025-05-21] MEDS: heparin 1,000unit/ml 10ml vial 10 ML IV ONE (19:00)
[2025-05-21] MEDS: heparin 1,000 units/ml 10ml inj IV ONE (19:00)
[2025-05-21] MEDS: heparin 1,000 units/ml 10ml inj HE ONE ×2 (19:00)
[2025-05-21] MEDS: EPOETIN ALFA-EPBX 20,000 UNIT/ML 1 ML MDV IV ONE (19:00)
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
[2025-05-22] VITALS (54 sets, daily range): BP systolic 77–168; BP diastolic 36–96; PULSE 70–187; RESP 12–26; TEMP 98.5–99.9; O2SAT 94–99
[2025-05-22 01:24] LABS: MEAN PLATELET VOLUME 8.5 FL (7.4-10.4); RED CELL DISTRIBUTION WIDTH 19.0 % (11.5-14.5)
[2025-05-22 01:46] LABS: CREATININE 5.99 MG/DL (0.60-1.10); TOTAL CARBON DIOXIDE 19.4 MMOL/L (24-32); eCRCL 19 ML/MIN; eGFR 10 ML/MIN
[2025-05-22 01:52] LABS: PHOSPHORUS 15.6 MG/DL (2.3-4.5)
[2025-05-22 02:49] LABS: ABG BASE EXCESS -8.9 mmol/L (-2.0-3.0); ABG HCO3 17.0 mmol/L (21.0-28.0); ABG OXYGEN SATURATION 98.0 % (94.0-98.0); ABG PCO2 (T) 36.4 mmHg (35.0-48.0); ABG PH (T) 7.286 (7.350-7.450); ABG PO2 (T) 110.8 mmHg (83.0-108.0); ALLEN'S TEST Modified; FCOHb 0.6 % (0.5-1.5); FHHb 2.0 % (0.0-5.0); FIO2 40.0 mmHg/%; FMetHb 0.1 % (0.0-1.5); FO2Hb 97.3 % (94.0-98.0); MODE vent-ac prvc; PATIENT TEMPERATURE 36.8; PEEP 7 cm H2O; RESPIRATORY RATE 24 b/min; TIDAL VOLUME 475 mL; TOTAL HEMOGLOBIN 13.2 G/dl (13.5-17.5)
--- NOTE | 2025-05-22 06:15 | RADIOLOGY REPORT ---
CHEST RADIOGRAPH Indication: ET Tube PLacement Technique: Single frontal view of the chest was obtained COMPARISON: DI CHEST,SINGLE VIEW on DOS: 05/21/25, DI CHEST,SINGLE VIEW on DOS: 05/20/25, DI CHEST,SINGLE VIEW on DOS: 05/20/25, DI CHEST,SINGLE VIEW on DOS: 05/19/25, DI CHEST,SINGLE VIEW on DOS: 05/18/25 FINDINGS: Lines and Tubes: Endotracheal tube, enteric catheter and left central venous catheter in satisfactory position. Right central venous catheter in satisfactory position. Lungs: Unchanged multifocal airspace disease. Pleura: No effusion.No pneumothorax. Cardiomediastinal contours: Cardiomegaly. Bones: Unremarkable IMPRESSION: Lines and tubes in satisfactory position. No significant interval change.
[2025-05-22] MEDS ORDERED: albumin (human) 25% 100ml IV 100 ML IV PRN (08:00)
--- NOTE | 2025-05-22 08:51 | PROGRESS NOTE ---
Progress Note Dictate Providers to CC ~ Subjective Subjective: He seems to be doing a bit better. He remains on a significant amount of fentanyl, but he is clearly awake. He is being started on dialysis, and I am told that the goal is to pull 5 L. he is receiving enteral feedings. Oxygenation stable. Fever improved. Objective Objective: Afebrile over the past 24 hours 40% FiO2 with PEEP 7 Middle-aged male currently intubated and awake, he does follow commands Right IJ temporary dialysis catheter (rewired 05/20) Left IJ central venous catheter (05/10) Left upper extremity midline (05/07) Lungs clear to auscultation anteriorly Heart regular rate and rhythm Abdomen obese, soft and nontender Left lower extremity with resolving cellulitis Lab Results: 05/22/25 0110 05/22/25 0110 Lab comments: 05/19 blood culture no growth to date Procalcitonin 6.36 and dropping Radiology comments: Bone scan with relatively mild uptake of the left greater trochanter Problem\\Assessment\\Plan Additional Plan 1. Sepsis related to soft tissue infection at distal left lower extremity. C. striatum, Proteus and group A Streptococcus on culture. 2. Concern for infection of complex left hip prosthesis - bone scan with mild uptake at left greater trochanter" although he really does not have a greater trochanter when looking at his plain film 3. Acute respiratory failure with stable oxygenation 4. Acute renal failure, currently on dialysis 5. Recent rash that may have been related to cefepime Continue linezolid and levofloxacin Hopefully he will continue to progress towards extubation Indium (WBC) scan early next week to further evaluate left hip Follow procalcitonin DESIREE MARINO MD May 22, 2025 08:51
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
[2025-05-22] MEDS: heparin 1,000 units/ml 10ml inj IV ONE (10:43)
[2025-05-22] MEDS: heparin 1,000unit/ml 10ml vial 10 ML IV ONE (10:43)
[2025-05-22] MEDS: heparin 1,000 units/ml 10ml inj HE ONE ×2 (10:43)
[2025-05-22 14:33] LABS: CREATININE 4.04 MG/DL (0.60-1.10); TOTAL CARBON DIOXIDE 21.8 MMOL/L (24-32); eCRCL 28 ML/MIN; eGFR 16 ML/MIN
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
--- NOTE | 2025-05-22 19:34 | PROGRESS NOTE ---
Progress Note Dictate Providers to CC ~ Antibiotic Ordered?: N/A Subjective Subjective Intubated, on dialysis, discussed his care with Objective Vitals Vital Signs Date Time Temp Pulse Resp B/P (MAP) Pulse Ox O2 Delivery O2 Flow Rate FiO2 05/22/25 18:39 97 20 94 35 05/22/25 18:00 100.6 98/64 (75) Mechanical Ventilator Intubated, sedated, on dialysis Regular rate and rhythm without murmur Ventilator breath sounds no wheezes Decreased bowel sounds, nontender Trace edema Lab Results: 05/22/25 0110 05/22/25 1415 Coagulation Studies Laboratory Tests Test 05/06/25 23:16 05/16/25 19:55 05/17/25 02:00 05/17/25 07:55 D-Dimer 1.32 MG/L FEU (0-0.50) H D-Dimer Comment Prothrombin Time 12.4 SECONDS (9.0-12.0) H INR International Normalized Ratio 1.2 INR Activated Partial Thromboplast Time 43 SECONDS (22-32) H APTT (Heparin Protocol) 61 SECONDS (45-75) Coagulation Comments Problem\Assessment\Plan Problems/Diagnosis: (1) Hyperkalemia Assessment & Plan: Improve with more efficient dialysis, new catheter (2) Acute kidney injury Assessment & Plan: Ischemic ATN, prerenal physiology dialysis dependent we will continue Saturday dialysis, monitor for daily need (3) Wound cellulitis Assessment & Plan: Left leg cellulitis, appears to be improving, continue antiemetics and plan by primary team (4) Acute respiratory failure Assessment & Plan: Continues to be ventilated, unlikely to extubate in the next 24-48 hours (5) Septic shock Assessment & Plan: Off pressors, continue antibiotics by our infectious disease colleagues, WBC scan in process (6) Hyperphosphatemia Assessment & Plan: Continue Renvela 3200mg TId with tube feeds please, likely hypermetabolism in the setting of sepsis and critical illness, and inadequate dialysis with catheter concerns recently I would expected to improve considerably over the next 24-48 hours Sepsis Screening Skin Color: Reddened WALL,HARDY M III DO May 22, 2025 19:34
[2025-05-23] VITALS (51 sets, daily range): BP systolic 76–113; BP diastolic 38–73; PULSE 71–102; RESP 10–29; TEMP 99–100.2; O2SAT 93–98
[2025-05-23 02:58] LABS: ABG BASE EXCESS -5.7 mmol/L (-2.0-3.0); ABG HCO3 18.8 mmol/L (21.0-28.0); ABG OXYGEN SATURATION 97.9 % (94.0-98.0); ABG PCO2 (T) 34.9 mmHg (35.0-48.0); ABG PH (T) 7.351 (7.350-7.450); ABG PO2 (T) 114.4 mmHg (83.0-108.0); ALLEN'S TEST Modified; FCOHb 0.5 % (0.5-1.5); FHHb 2.1 % (0.0-5.0); FIO2 35.0 mmHg/%; FMetHb 0.3 % (0.0-1.5); FO2Hb 97.1 % (94.0-98.0); MODE VENT- AC/PRVC; PATIENT TEMPERATURE 37.6; PEEP 7 cm H2O; RESPIRATORY RATE 24 b/min; TIDAL VOLUME 475 mL; TOTAL HEMOGLOBIN 13.8 G/dl (13.5-17.5)
[2025-05-23 02:59] LABS: MEAN PLATELET VOLUME 9.2 FL (7.4-10.4); RED CELL DISTRIBUTION WIDTH 19.6 % (11.5-14.5)
[2025-05-23 03:10] LABS: CREATININE 5.42 MG/DL (0.60-1.10); TOTAL CARBON DIOXIDE 20.6 MMOL/L (24-32); eCRCL 21 ML/MIN; eGFR 11 ML/MIN
[2025-05-23 03:14] LABS: PLATELET ESTIMATE NORMAL
[2025-05-23 03:15] LABS: GIANT PLATELET FEW; LARGE PLATELETS FEW
[2025-05-23 03:16] LABS: PHOSPHORUS 10.9 MG/DL (2.3-4.5)
--- NOTE | 2025-05-23 07:27 | RADIOLOGY REPORT ---
CHEST RADIOGRAPH INDICATION: ET Tube PLacement TECHNIQUE: Single frontal view of the chest was obtained. COMPARISON: DI CHEST,SINGLE VIEW on DOS: 05/22/25, DI CHEST,SINGLE VIEW on DOS: 05/21/25 FINDINGS: Stable lines and tubes. Similar-appearing patchy opacities including right lower lung opacities. No significant pleural effusion. No pneumothorax. Stable cardiomediastinal silhouette. IMPRESSION: Stable exam.
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
[2025-05-23] MEDS: albumin (human) 25% 100ml IV 100 ML IV PRN (13:45)
[2025-05-23] MEDS: heparin 1,000unit/ml 10ml vial 10 ML IV ONE (15:19)
[2025-05-23] MEDS: heparin 1,000 units/ml 10ml inj IV ONE (15:19)
[2025-05-23] MEDS: heparin 1,000 units/ml 10ml inj HE ONE ×2 (15:20)
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
--- NOTE | 2025-05-23 18:42 | PROGRESS NOTE ---
Progress Note Dictate Providers to CC ~ Antibiotic Ordered?: N/A Subjective Subjective Scheduled for dialysis again today, family present discussed the case in his prognosis and Objective Vitals Vital Signs Date Time Temp Pulse Resp B/P (MAP) Pulse Ox O2 Delivery O2 Flow Rate FiO2 05/23/25 18:00 100.8 93 17 95/56 (69) 94 Mechanical Ventilator 30 Sleepy but arousable, no acute distress Regular rate and rhythm without murmur Clear to auscultation bilaterally Positive bowel sounds nontender No edema Lab Results: 05/23/25 0204 05/23/25 0204 Coagulation Studies Laboratory Tests Test 05/06/25 23:16 05/16/25 19:55 05/17/25 02:00 05/17/25 07:55 D-Dimer 1.32 MG/L FEU (0-0.50) H D-Dimer Comment Prothrombin Time 12.4 SECONDS (9.0-12.0) H INR International Normalized Ratio 1.2 INR Activated Partial Thromboplast Time 43 SECONDS (22-32) H APTT (Heparin Protocol) 61 SECONDS (45-75) Coagulation Comments Other Results I & O 05/23/25 07:00 Intake Total 5492.3 ml Output Total 5930 ml Balance -437.7 ml Intake Oral 0 ml IV Total 2922.3 ml Tube Feeding 2000 ml Hemodialysis 500 ml Other 70 ml Output Urine Total 80 ml Stool Total 850 ml Hemodialysis 5000 ml Problem\Assessment\Plan Problems/Diagnosis: (1) Hyperkalemia Assessment & Plan: Improve with more efficient dialysis, new catheter (2) Acute kidney injury Assessment & Plan: Ischemic ATN, likely prerenal physiology, dialysis dependent we will plan on dialysis again today, catheter is performing well now (3) Wound cellulitis Assessment & Plan: Left leg cellulitis, appears to be improving, continue antibiotics by primary team (4) Acute respiratory failure Assessment & Plan: Continues to be ventilated, unlikely to extubate in the next 24-48 hours (5) Septic shock Assessment & Plan: Off pressors, continue antibiotics by our infectious disease colleagues, WBC scan in process (6) Hyperphosphatemia Assessment & Plan: Continue Renvela 3200mg TId with tube feeds please, likely hypermetabolism in the setting of sepsis and critical illness, and inadequate dialysis with catheter concerns recently I would expected to improve considerably over the next 24-48 hours Sepsis Screening Skin Color: Reddened WALL,HARDY Lamar III DO May 23, 2025 18:42
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
[2025-05-24] VITALS (38 sets, daily range): BP systolic 82–140; BP diastolic 45–83; PULSE 65–87; RESP 9–27; O2SAT 81–99
[2025-05-24 01:41] LABS: ABG BASE EXCESS -5.0 mmol/L (-2.0-3.0); ABG HCO3 19.3 mmol/L (21.0-28.0); ABG OXYGEN SATURATION 95.7 % (94.0-98.0); ABG PCO2 (T) 35.2 mmHg (35.0-48.0); ABG PH (T) 7.362 (7.350-7.450); ABG PO2 (T) 92.9 mmHg (83.0-108.0); FCOHb 0.4 % (0.5-1.5); FHHb 4.3 % (0.0-5.0); FIO2 30.0 mmHg/%; FMetHb 0.2 % (0.0-1.5); FO2Hb 95.1 % (94.0-98.0); MODE vent- cpap/ps; PATIENT TEMPERATURE 37.9; PEEP 5 cm H2O; TOTAL HEMOGLOBIN 14.1 G/dl (13.5-17.5)
[2025-05-24 02:16] LABS: MEAN PLATELET VOLUME 8.9 FL (7.4-10.4); RED CELL DISTRIBUTION WIDTH 19.2 % (11.5-14.5)
[2025-05-24 02:48] LABS: CREATININE 5.42 MG/DL (0.60-1.10); TOTAL CARBON DIOXIDE 22.6 MMOL/L (24-32); eCRCL 21 ML/MIN; eGFR 11 ML/MIN
[2025-05-24 02:56] LABS: PHOSPHORUS 10.6 MG/DL (2.3-4.5)
--- NOTE | 2025-05-24 06:02 | RADIOLOGY REPORT ---
CHEST RADIOGRAPH INDICATION: ET Tube PLacement TECHNIQUE: Single frontal view of the chest was obtained COMPARISON: DI CHEST,SINGLE VIEW on DOS: 05/23/25, DI CHEST,SINGLE VIEW on DOS: 05/22/25, DI CHEST,SINGLE VIEW on DOS: 05/21/25, DI CHEST,SINGLE VIEW on DOS: 05/20/25, DI CHEST,SINGLE VIEW on DOS: 05/20/25 FINDINGS: Lines and Tubes: Slight interval retraction of the left internal jugular central venous catheter with tip projecting at the confluence of the internal jugular and innominate vein. Remaining lines and tubes unchanged. Lungs: Mild diffuse increased prominence of the pulmonary vasculature. No evidence of focal consolidation. No pneumothorax. Cardiomediastinal contours: Cardiomegaly. Bones: Unremarkable IMPRESSION: 1. Mild pulmonary vascular congestion. 2. Cardiomegaly. 3. Repositioned left internal jugular central venous catheter as above. Remaining Lines and tubes unchanged.
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
--- NOTE | 2025-05-24 17:11 | PROGRESS NOTE ---
Progress Note Dictate Providers to CC ~ Central Line/PICC still needed: Yes Central Line/PICC Necessity: Req HD/Plasmapheresis Andersen Indications Met/Not Met: F/C Indications Met Antibiotic Ordered?: Yes Subjective Subjective The patient is now extubated and is making sense. talking syllables. has the right ij temp devan and left IJ triple lumen that will need a replacement soon. HD willbe done tomorrow. Objective Vitals Vital Signs Date Time Temp Pulse Resp B/P (MAP) Pulse Ox O2 Delivery O2 Flow Rate FiO2 05/24/25 16:00 99.7 79 22 107/73 (84) 95 Nasal Cannula 2.0 05/24/25 09:28 28 Lab Results: 05/24/25 0143 05/24/25 0143 Objective Vital Signs: As above, extubated today. General: Normal body habitus, no acute distress. Skin: No rashes, lumps, ulcers, blisters, purpura or petechiae HEENT: Anicteric sclera, CNYDI Neck: Supple and nontender without enlargement of the thyroid, or lymphadenopathy. Chest: Normal size and shape, no tenderness, CTA bilaterally Heart: Regular. No jugular venous distention, S1 and S2 heard , no gallop Abdomen: Soft and non tender no organomegaly,BS+ Extremities: left leg very erythematous and warm. Neuro: Nonfocal. Coagulation Studies Laboratory Tests Test 05/06/25 23:16 05/16/25 19:55 05/17/25 02:00 05/17/25 07:55 D-Dimer 1.32 MG/L FEU (0-0.50) H D-Dimer Comment Prothrombin Time 12.4 SECONDS (9.0-12.0) H INR International Normalized Ratio 1.2 INR Activated Partial Thromboplast Time 43 SECONDS (22-32) H APTT (Heparin Protocol) 61 SECONDS (45-75) Coagulation Comments Advance Care Planning Advanced Care plannin - 30 Minutes Problem\Assessment\Plan Problems/Diagnosis: (1) Hyperkalemia Assessment & Plan: Improve with more efficient dialysis, new catheter (2) Acute kidney injury Assessment & Plan: Ischemic ATN, likely prerenal physiology, dialysis dependent we will plan on dialysis again tomorrow, catheter is performing well now (3) Wound cellulitis Assessment & Plan: Left leg cellulitis, appears to be improving, continue antibiotics by primary team (4) Acute respiratory failure Assessment & Plan: extubated today. (5) Septic shock Assessment & Plan: Off pressors, continue antibiotics by our infectious disease colleagues, WBC scan in process (6) Hyperphosphatemia Assessment & Plan: Continue Renvela 3200mg TId with tube feeds please, likely hypermetabolism in the setting of sepsis and critical illness, and inadequate dialysis with catheter concerns recently I would expected to improve considerably over the next 24-48 hours. phos is down to 10.6 Sepsis Screening Skin Color: Reddened TAYLER REID MD May 24, 2025 17:11
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
[2025-05-24] MEDS: dexmedetomidin/NS 400mcg/100ml 100 ML IV SCH (21:13)
[2025-05-25] VITALS (34 sets, daily range): BP systolic 86–135; BP diastolic 38–95; PULSE 64–85; RESP 11–22; TEMP 97.6–98.7; O2SAT 79–100
[2025-05-25 05:12] LABS: MEAN PLATELET VOLUME 8.6 FL (7.4-10.4); RED CELL DISTRIBUTION WIDTH 20.0 % (11.5-14.5)
[2025-05-25 05:25] LABS: % IRON SATURATION 24 % (11-46); CREATININE 6.90 MG/DL (0.60-1.10); TOTAL CARBON DIOXIDE 19.0 MMOL/L (24-32); eCRCL 16 ML/MIN; eGFR 9 ML/MIN
[2025-05-25 05:40] LABS: PHOSPHORUS 11.9 MG/DL (2.3-4.5)
[2025-05-25] MEDS: dextrose 50%-water 50ml dispensing syringe IV ONE (05:55)
[2025-05-25] MEDS: insulin regular, human 10 units/0.1 ml syringe IV ONE (05:56)
[2025-05-25] MEDS: heparin 1,000 units/ml 10ml inj IV ONE (07:58)
[2025-05-25] MEDS: heparin 1,000unit/ml 10ml vial 10 ML IV ONE (07:58)
[2025-05-25] MEDS: heparin 1,000 units/ml 10ml inj HE ONE ×2 (07:58→07:59)
[2025-05-25] MEDS ORDERED: albumin (human) 25% 100ml IV 100 ML IV PRN (08:00)
[2025-05-25 13:30] LABS: CREATININE 4.66 MG/DL (0.60-1.10); TOTAL CARBON DIOXIDE 26.0 MMOL/L (24-32); eCRCL 24 ML/MIN; eGFR 14 ML/MIN
[2025-05-25] MEDS ORDERED: levoFLOXACIN-Levaquin 250mg/D5 50 ML IV SCH (13:57)
[2025-05-25] MEDS ORDERED: LIDOcaine 1% (10mg/ml)w/preservative inj. 20ml MDV ONE (16:00)
[2025-05-25] MEDS ORDERED: heparin 1,000unit/ml 10ml vial 10 ML ONE (16:00)
[2025-05-25] MEDS ORDERED: fentaNYL/PF 50MCG/1 ML 2ML syringe ONE (16:56)
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
--- NOTE | 2025-05-25 17:46 | PROGRESS NOTE ---
Progress Note - Angio Providers to CC ~ Angio Progress Note: After explaining risks benefits alt of TDC RIJ, surg time out done. Successful placement of 23cm Duramax RIJ TDC. No immed complications, may use now. Routine care. EBL approx 5cc. Dictated. DEWAYNE CARDOZA MD May 25, 2025 17:46
--- NOTE | 2025-05-25 18:00 | PROGRESS NOTE ---
Progress Note Dictate Providers to CC ~ Central Line/PICC still needed: Yes Central Line/PICC Necessity: Req HD/Plasmapheresis Andersen Indications Met/Not Met: F/C Indications Not Met Antibiotic Ordered?: N/A Subjective Subjective The patient is mentating well. Earlier, he was reluctant to have another catheter placed but when explained to him about how life thretening it is to keep the old cath, he agreed. He had his dialysis for his hyperkalemia. TDC was placed later by today. Objective Vitals Vital Signs Date Time Temp Pulse Resp B/P (MAP) Pulse Ox O2 Delivery O2 Flow Rate FiO2 05/25/25 15:00 99.5 79 19 110/59 (76) 97 Nasal Cannula 5.0 05/25/25 07:40 40 Lab Results: 05/25/25 0452 05/25/25 1253 Objective Vital Signs: As above, extubated General: Normal body habitus, no acute distress. Skin: No rashes, lumps, ulcers, blisters, purpura or petechiae HEENT: Anicteric sclera, CYNDI Neck: Supple and nontender without enlargement of the thyroid, or lymphadenopathy. Chest: Normal size and shape, no tenderness, CTA bilaterally Heart: Regular. No jugular venous distention, S1 and S2 heard , no gallop Abdomen: Soft and non tender no organomegaly,BS+ Extremities: left leg very erythematous and warm. Neuro: Nonfocal. Coagulation Studies Laboratory Tests Test 05/06/25 23:16 05/16/25 19:55 05/17/25 02:00 05/17/25 07:55 D-Dimer 1.32 MG/L FEU (0-0.50) H D-Dimer Comment Prothrombin Time 12.4 SECONDS (9.0-12.0) H INR International Normalized Ratio 1.2 INR Activated Partial Thromboplast Time 43 SECONDS (22-32) H APTT (Heparin Protocol) 61 SECONDS (45-75) Coagulation Comments Advance Care Planning Advanced Care plannin - 30 Minutes Problem\Assessment\Plan Problems/Diagnosis: (1) Hyperkalemia Assessment & Plan: now has TDC. also he was dialyzed this am. (2) Acute kidney injury Assessment & Plan: Ischemic ATN, likely prerenal physiology, dialysis dependent we will plan on dialysis again tomorrow,if needed, with the new TDC (3) Wound cellulitis Assessment & Plan: Left leg cellulitis, appears to be improving, continue antibiotics by primary team (4) Acute respiratory failure Assessment & Plan: extubated and remains stable. should be getting ready to be transferred upstairs. to pcu (5) Septic shock Assessment & Plan: Off pressors, continue antibiotics by our infectious disease colleagues, WBC scan in process (6) Hyperphosphatemia Assessment & Plan: Continue Renvela 3200mg TId with tube feeds please, likely hypermetabolism in the setting of sepsis and critical illness, and inadequate dialysis with catheter concerns recently I would expected to improve considerably over the next 24-48 hours. phos is down to 10.6 Sepsis Screening Skin Color: Normal TAYLER REID MD May 25, 2025 18:00
--- NOTE | 2025-05-25 18:31 | RADIOLOGY REPORT ---
PROCEDURE: Tunneled dialysis catheter placement. HISTORY: Renal failure REFERRING PHYSICIAN: MAXIMILIANO BYRD MEDICATIONS: 0 mg of Versed IV; 100 mcg of Fentanyl IV; 17 mL of 1% Lidocaine. FLUORO TIME: 0.5 minutes minutes AIR KERMA: 20 mGy ESTIMATED BLOOD LOSS: <10mL TECHNIQUE: The right neck and chest were prepped and draped in sterile fashion at site of existing temporary dialysis catheter. Local anesthesia was applied. An 035 Amplatz guidewire was advanced through the temporary catheter and positioned within the inferior vena cava and the catheter was removed. Next a peel-away sheath was laced in the internal jugular vein. A subcutaneous tunnel was created along the right anterior chest wall utilizing lidocaine and blunt dissection. A 23 cm Duramax tunneled catheter was advanced through the tunnel and position into the peel-away sheath with the patient in a Trendelenburg position. The tip of the catheter was positioned within in the cavoatrial junction. The original venotomy incision was closed with 3-0 Vicryl. The catheter was secured at the exit site with 0 Prolene. Both lumens were loaded with heparin. Triple antibiotic ointment placed over the initial venotomy site. Patient was on existing IV antibiotic regimen. FINDINGS: The catheter tip is in the right atrium. IMPRESSION: Tunneled dialysis catheter placement. May use now, routine catheter care.
[2025-05-25] MEDS ORDERED: DEXTROSE 15 GM of carb/4 tabs (each vial/BOTTLE has 4 tablets) PO PRN ×2 (18:46)
[2025-05-25] MEDS ORDERED: sevelamer carbonate 0.8gm powder pkt PO SCH (18:48)
[2025-05-25] MEDS: docusate sodium 100mg/10ml UD cup PO SCH (19:43)
[2025-05-25] MEDS: pantoprazole 40mg Tablet.DR PO ONE (20:52)
[2025-05-26 02:00] VITALS: BP 103/69; PULSE 72; RESP 19; TEMP 97.1; O2SAT 97
[2025-05-26 06:00] VITALS: BP 127/75; PULSE 79; RESP 18; TEMP 98.4; O2SAT 99
[2025-05-26 07:41] VITALS: PULSE 71; RESP 20; O2SAT 97
[2025-05-26 08:00] VITALS: RESP 18; O2SAT 99
[2025-05-26] MEDS ORDERED: linezolid 600mg/300ml PREMIX 300 ML IV SCH (08:00)
--- NOTE | 2025-05-26 08:34 | PROGRESS NOTE ---
Progress Note Dictate Providers to CC ~ Subjective Subjective: He has been moved out to the floor. No fever for the past 48 hours. Tunneled dialysis catheter placed by IR. Objective Objective: 3 L Middle-aged male currently awake, looking stable TDC in place Lungs clear to auscultation anteriorly Heart regular rate and rhythm Abdomen obese, soft and nontender Left lower extremity with resolving cellulitis Lab Results: 05/25/25 0452 05/25/25 1253 Problem\\Assessment\\Plan Additional Plan 1. Sepsis related to soft tissue infection at distal left lower extremity. C. striatum, Proteus and group A Streptococcus on culture. 2. Concern for infection of complex left hip prosthesis - bone scan with mild uptake at left greater trochanter" although he really does not have a greater trochanter when looking at his plain film 3. Acute respiratory failure s/p extubation 05/24 4. Acute renal failure, currently on dialysis 5. Recent rash that may have been related to cefepime Continue linezolid and levofloxacin - change to oral formulation Indium (WBC) scan results pending DESIREE MARINO MD May 26, 2025 08:34
--- NOTE | 2025-05-26 08:54 | RADIOLOGY REPORT ---
EXAM: NM WBC LTD, NM NM WBC SCAN DATE OF SERVICE: 05/24/2025 02:07 PM ORDERING PHYSICIAN: TETO DARBY REASON FOR EXAM: Infection left hip TECHNIQUE: Indium 111 oxygen white blood cell scan performed with 24 hour delayed images. COMPARISON: None Findings/ IMPRESSION: Nonspecific mild increased activity is present in the bilateral femurs, bilateral hips and bilateral knees. Findings may represent infectious or inflammatory process. Clinical correlation advised.
--- NOTE | 2025-05-26 09:17 | RADIOLOGY REPORT ---
CHEST RADIOGRAPH Indication: R/O TB. PLEASE STATE YES OR NO EVIDENCE OF TB. Technique: Single frontal view of the chest was obtained COMPARISON: DI CHEST,SINGLE VIEW on DOS: 05/24/25, DI CHEST,SINGLE VIEW on DOS: 05/23/25, DI CHEST,SINGLE VIEW on DOS: 05/22/25, DI CHEST,SINGLE VIEW on DOS: 05/21/25, DI CHEST,SINGLE VIEW on DOS: 05/20/25 FINDINGS: Lines and Tubes: Tunneled right central venous catheter in satisfactory position. Lungs: Increased interstital prominence. This may represent pulmonary vascular congestion and/or viral pneumonia. Pleura: No effusion. No pneumothorax. Cardiomediastinal contours: Cardiomegaly. Bones: Unremarkable IMPRESSION: Increased interstitial prominence may represent pulmonary vascular congestion and/or viral pneumonia.
--- NOTE | 2025-05-26 09:32 | RADIOLOGY REPORT ---
EXAM: NM WBC LTD, NM NM WBC SCAN DATE OF SERVICE: 05/24/2025 02:07 PM ORDERING PHYSICIAN: TETO DARBY REASON FOR EXAM: Infection left hip TECHNIQUE: Indium 111 oxygen white blood cell scan performed with 24 hour delayed images. COMPARISON: None Findings/ IMPRESSION: Nonspecific mild increased activity is present in the bilateral femurs, bilateral hips and bilateral knees. Findings may represent infectious or inflammatory process. Clinical correlation advised. DING DISMANTLER AMADO
[2025-05-26 11:00] VITALS: BP 122/70; PULSE 81; RESP 18; TEMP 97.6; O2SAT 91
[2025-05-26 12:14] LABS: CREATININE 6.18 MG/DL (0.60-1.10); TOTAL CARBON DIOXIDE 19.7 MMOL/L (24-32); eCRCL 18 ML/MIN; eGFR 10 ML/MIN
[2025-05-26 12:32] LABS: PHOSPHORUS 9.9 MG/DL (2.3-4.5)
[2025-05-26] MEDS: SODIUM ZIRCONIUM CYCLOSILICATE 10 GM POWD.PACK PO SCH (12:35)
[2025-05-26] MEDS: sodium polystyrene sulfonate 15gm/60ml oral suspension PO ONE (12:45)
[2025-05-26] MEDS ORDERED: albuterol 2.5 MG/3 ML nebule NEB ONE (12:45)
[2025-05-26] MEDS: SODIUM ZIRCONIUM CYCLOSILICATE 10 GM POWD.PACK PO ONE (14:48)
[2025-05-26] MEDS: insulin regular, human 10 units/0.1 ml syringe IV ONE (14:48)
[2025-05-26] MEDS: sodium bicarbonate (8.4%) 1 mEq/ml syringe IV ONE (14:49)
[2025-05-26] MEDS: dextrose 50%-water 50ml dispensing syringe IV ONE (14:49)
[2025-05-26 15:00] VITALS: BP 133/82; PULSE 76; RESP 25; TEMP 97.8; O2SAT 96
--- NOTE | 2025-05-26 18:04 | PROGRESS NOTE ---
Progress Note Dictate Providers to CC ~ Central Line/PICC still needed: Yes Central Line/PICC Necessity: Req HD/Plasmapheresis [facility] Indications Met/Not Met: F/C Indications Not Met Antibiotic Ordered?: Yes Subjective Subjective consult and follow up appreciated. 1. Sepsis related to soft tissue infection at distal left lower extremity. C. striatum, Proteus and group A Streptococcus on culture. 2. Concern for infection of complex left hip prosthesis - bone scan with mild uptake at left greater trochanter" although he really does not have a greater trochanter when looking at his plain film. I believe he is going to [facility] today. when I chcked the labs it was post dialysis when the K was 4.8. Today Na is 122 and K is 5.4. PO lokelma, albuterol and insulin were given by primary team. Free water restriction to 1 liter or below is strongly recommended for the hyponatremia Objective Vitals Vital Signs Date Time Temp Pulse Resp B/P (MAP) Pulse Ox O2 Delivery O2 Flow Rate FiO2 05/26/25 15:00 97.8 76 25 133/82 (99) 96 Nasal Cannula 2.0 05/26/25 07:41 32 Lab Results: 05/25/25 0452 05/26/25 1124 Objective Vital Signs: As above, extubated General: Normal body habitus, no acute distress. Skin: No rashes, lumps, ulcers, blisters, purpura or petechiae HEENT: Anicteric sclera, CYNDI Neck: Supple and nontender without enlargement of the thyroid, or lymphadenopathy. Chest: Normal size and shape, no tenderness, CTA bilaterally Heart: Regular. No jugular venous distention, S1 and S2 heard , no gallop Abdomen: Soft and non tender no organomegaly,BS+ Extremities: left leg very erythematous and warm. Neuro: Nonfocal. Coagulation Studies Laboratory Tests Test 05/06/25 23:16 05/16/25 19:55 05/17/25 02:00 05/17/25 07:55 D-Dimer 1.32 MG/L FEU (0-0.50) H D-Dimer Comment Prothrombin Time 12.4 SECONDS (9.0-12.0) H INR International Normalized Ratio 1.2 INR Activated Partial Thromboplast Time 43 SECONDS (22-32) H APTT (Heparin Protocol) 61 SECONDS (45-75) Coagulation Comments Advance Care Planning Advanced Care plannin - 30 Minutes Problem\\Assessment\\Plan Problems/Diagnosis: (1) Hyperkalemia Assessment & Plan: now has TDC. also he was dialyzed yesterday. HD has been arranged to start in am tomorrow at [facility] (2) Acute kidney injury Assessment & Plan: Ischemic ATN, likely prerenal physiology, dialysis dependent we will plan on dialysis again tomorrow,, with the new TDC (3) Wound cellulitis Assessment & Plan: Left leg cellulitis, appears to be improving, continue antibiotics by primary team (4) Acute respiratory failure Assessment & Plan: extubated and remains stable. should be getting ready to be transferred upstairs. to pcu (5) Septic shock Assessment & Plan: Off pressors, continue antibiotics by our infectious disease colleagues, WBC scan reviewed by ID (6) Hyperphosphatemia Assessment & Plan: Continue Renvela 3200mg TId with tube feeds please, likely hypermetabolism in the setting of sepsis and critical illness, and inadequate dialysis with catheter concerns recently I would expected to improve considerably over the next 24-48 hours. phos is down to 10.6 Sepsis Screening Skin Color: Normal TAYLER REID MD May 26, 2025 18:04
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
[2025-05-27 08:11] LABS: HEP B CORE AB, TOT Negative (Negative); HEP B SURF AB QUANTITATIVE <3.5 mIU/mL (Immunity>10)
== END 2025-05-26 15:55 | DRG 720 ==
LOC: ER 19:15 → ED HOLD 21:24 → CICU 2S 05-07 06:45 → PCU 3S 05-25 16:26
PROVIDERS: ADMIT Internal Medicine; ATTEND Internal Medicine
PROC: BQ2R1ZZ Computerized Tomography (CT Scan) of Right Lower Extremity using Low Osmolar Contrast (ICD-10-PCS; 2025-05-06)
PROC: B32T1ZZ Computerized Tomography (CT Scan) of Left Pulmonary Artery using Low Osmolar Contrast (ICD-10-PCS; 2025-05-06)
PROC: B3201ZZ Computerized Tomography (CT Scan) of Thoracic Aorta using Low Osmolar Contrast (ICD-10-PCS; 2025-05-06)
PROC: B32S1ZZ Computerized Tomography (CT Scan) of Right Pulmonary Artery using Low Osmolar Contrast (ICD-10-PCS; 2025-05-06)
PROC: 5A0935A Assistance with Respiratory Ventilation, Less than 24 Consecutive Hours, High Flow/Velocity Cannula (ICD-10-PCS; 2025-05-07)
PROC: 5A09357 Assistance with Respiratory Ventilation, Less than 24 Consecutive Hours, Continuous Positive Airway Pressure (ICD-10-PCS; 2025-05-07)
PROC: 05HF33Z Insertion of Infusion Device into Left Cephalic Vein, Percutaneous Approach (ICD-10-PCS; 2025-05-07)
PROC: B54NZZA Ultrasonography of Left Upper Extremity Veins, Guidance (ICD-10-PCS; 2025-05-07)
PROC: 5A0935A Assistance with Respiratory Ventilation, Less than 24 Consecutive Hours, High Flow/Velocity Cannula (ICD-10-PCS; 2025-05-08)
PROC: 5A09357 Assistance with Respiratory Ventilation, Less than 24 Consecutive Hours, Continuous Positive Airway Pressure (ICD-10-PCS; 2025-05-08)
PROC: 5A0935A Assistance with Respiratory Ventilation, Less than 24 Consecutive Hours, High Flow/Velocity Cannula (ICD-10-PCS; 2025-05-09)
PROC: 5A09357 Assistance with Respiratory Ventilation, Less than 24 Consecutive Hours, Continuous Positive Airway Pressure (ICD-10-PCS; 2025-05-09)
PROC: 6A550Z3 Pheresis of Plasma, Single (ICD-10-PCS; principal; 2025-05-10)
PROC: 5A1955Z Respiratory Ventilation, Greater than 96 Consecutive Hours (ICD-10-PCS; 2025-05-10)
PROC: 0BH17EZ Insertion of Endotracheal Airway into Trachea, Via Natural or Artificial Opening (ICD-10-PCS; 2025-05-10)
PROC: 5A1D90Z Performance of Urinary Filtration, Continuous, Greater than 18 hours Per Day (ICD-10-PCS; 2025-05-11)
PROC: 5A1D90Z Performance of Urinary Filtration, Continuous, Greater than 18 hours Per Day (ICD-10-PCS; 2025-05-12)
PROC: 5A1D90Z Performance of Urinary Filtration, Continuous, Greater than 18 hours Per Day (ICD-10-PCS; 2025-05-14)
PROC: 5A1D90Z Performance of Urinary Filtration, Continuous, Greater than 18 hours Per Day (ICD-10-PCS; 2025-05-15)
PROC: 5A1D90Z Performance of Urinary Filtration, Continuous, Greater than 18 hours Per Day (ICD-10-PCS; 2025-05-16)
PROC: 5A1D70Z Performance of Urinary Filtration, Intermittent, Less than 6 Hours Per Day (ICD-10-PCS; 2025-05-18)
PROC: 5A1D70Z Performance of Urinary Filtration, Intermittent, Less than 6 Hours Per Day (ICD-10-PCS; 2025-05-19)
PROC: 5A1D70Z Performance of Urinary Filtration, Intermittent, Less than 6 Hours Per Day (ICD-10-PCS; 2025-05-20)
PROC: CW2D1ZZ Tomographic (Tomo) Nuclear Medicine Imaging of Lower Extremity using Technetium 99m (Tc-99m) (ICD-10-PCS; 2025-05-20)
PROC: 5A1D70Z Performance of Urinary Filtration, Intermittent, Less than 6 Hours Per Day (ICD-10-PCS; 2025-05-22)
PROC: 5A1D70Z Performance of Urinary Filtration, Intermittent, Less than 6 Hours Per Day (ICD-10-PCS; 2025-05-23)
PROC: 5A09357 Assistance with Respiratory Ventilation, Less than 24 Consecutive Hours, Continuous Positive Airway Pressure (ICD-10-PCS; 2025-05-24)
PROC: C713DZZ Planar Nuclear Medicine Imaging of Blood using Indium 111 (In-111) (ICD-10-PCS; 2025-05-24)
PROC: 5A1D70Z Performance of Urinary Filtration, Intermittent, Less than 6 Hours Per Day (ICD-10-PCS; 2025-05-25)
PROC: 0JH63XZ Insertion of Tunneled Vascular Access Device into Chest Subcutaneous Tissue and Fascia, Percutaneous Approach (ICD-10-PCS; 2025-05-25)
PROC: 02H633Z Insertion of Infusion Device into Right Atrium, Percutaneous Approach (ICD-10-PCS; 2025-05-25)
PROC: B5181ZA Fluoroscopy of Superior Vena Cava using Low Osmolar Contrast, Guidance (ICD-10-PCS; 2025-05-25)
DX: A41.9 Sepsis, unspecified organism (principal); J80 Acute respiratory distress syndrome; K72.00 Acute and subacute hepatic failure without coma; N17.0 Acute kidney failure with tubular necrosis; R65.21 Severe sepsis with septic shock; E83.39 Other disorders of phosphorus metabolism; I27.29 Other secondary pulmonary hypertension; L03.116 Cellulitis of left lower limb; M00.852 Arthritis due to other bacteria, left hip; I50.33 Acute on chronic diastolic (congestive) heart failure; I11.0 Hypertensive heart disease with heart failure; J44.9 Chronic obstructive pulmonary disease, unspecified; E66.01 Morbid (severe) obesity due to excess calories; G93.40 Encephalopathy, unspecified; F32.A Depression, unspecified; D53.9 Nutritional anemia, unspecified; I47.10 Supraventricular tachycardia, unspecified; T25.322A Burn of third degree of left foot, initial encounter; E87.5 Hyperkalemia; E87.29 Other acidosis; E78.5 Hyperlipidemia, unspecified; G47.33 Obstructive sleep apnea (adult) (pediatric); I25.10 Atherosclerotic heart disease of native coronary artery without angina pectoris; E87.6 Hypokalemia; S81.802A Unspecified open wound, left lower leg, initial encounter; X58.XXXA Exposure to other specified factors, initial encounter; X08.8XXA Exposure to other specified smoke, fire and flames, initial encounter; M21.372 Foot drop, left foot; Z96.642 Presence of left artificial hip joint; N52.9 Male erectile dysfunction, unspecified; Y93.89 Activity, other specified; Y92.89 Other specified places as the place of occurrence of the external cause; Y99.8 Other external cause status; Z88.8 Allergy status to other drugs, medicaments and biological substances; Z79.899 Other long term (current) drug therapy; Z68.36 Body mass index [BMI] 36.0-36.9, adult
CPT/HCPCS: 36410; 36415; 36558; 36600; 71045; 71275; 73701; 76770; 76937; 77001; 78315; 78800; 80048; 80053; 80061; 80069; 81001; 82247; 82248; 82330; 82550; 82728; 82800; 82803; 82948; 83036; 83540; 83550; 83605; 83735; 83880; 84075; 84100; 84132; 84145; 84450; 84460; 84466; 84478; 85007; 85008; 85018; 85025; 85379; 85610; 85651; 85730; 86140; 86703; 86704; 86706; 87040; 87070; 87077; 87081; 87186; 87340; 93005; 93306; 93925; 93971; 94003; 94640; 94660; 94760; 96365; 97110; 97116; 97163; 99291; A4333; A4615; A4620; A5200; A6154; A6196; A6213; A6222; A6223; A6250; A6258; A6260; A6446; A6449; A6590; A9503; A9570; A9900; C1751; C1752; C1758; E1594; G0257; G0378; J0131; J0612; J0692; J1171; J1644; J1650; J1815; J1938; J1956; J2020; J2151; J2250; J2405; J2470; J2543; J2704; J2997; J3010; J3373; J3480; J3490; J7030; J7040; J7050; J7120; P9047; Q9967